=== PATIENT | female | born 1990 | race Caucasian/White ===

== ENCOUNTER 2017-12-30 11:21 | Emergency (ER) | payer MEDICAID ==
[~2017-12-30] VITALS: Ht 172.7 cm; Wt 127.0 kg
[~2017-12-30 11:21] MED LIST: BUSP15TA60 PO; IBUP-16 PO; MELA3TAB PO; NITR-65 PO; PHEN-640 PO
[2017-12-30] MEDS ORDERED: GABA-488 (12:03)
--- NOTE | 2017-12-30 12:45 | ED General ---
General Chief Complaint: General Problems/Pain Stated Complaint: BACK PAIN,LOWER SIDE/ABD PAIN Nursing Triage Note: TO ROOM WITH MUTIPLE C/O REPORTS [place] YESTERDAY FELT PAIN IN BACK THAT WRAPPED AROUND THE BACK. WAS SEEN AT [facility] LAST NIGHT WORK UP NEG. REPORTS HAPPENED AGAIN.FROM JUL HAD GABAPENTIN FILLED NOT SURE IF SHE IS TAKING IT Nursing Sepsis Screen: No Definite Risk Source of Information: Patient Exam Limitations: No Limitations History of Present Illness Date Seen by Provider: Dec 30, 2017 Time Seen by Provider: 12:43 Initial Comments To ER with thoracic back pain, bilateral lower back pain that began yesterday while working at the [employer] in [facility]. She states she was twisting and felt a sudden tension about her entire torso. This was in the thoracic back and low back as mentioned and radiated through to the chest. reports intermittent right upper quadrant abdominal pain. She still has her gallbladder. Timing/Duration: 1-2 Days Severity: Moderate Modifying Factors: improves with Medication Allergies and Home Medications Allergies Coded Allergies: oseltamivir (Unverified Allergy, Intermediate, 12/06/15) seizures sertraline (Unverified Allergy, Intermediate, 12/06/15) seizures latex (Unverified Allergy, Unknown, 12/06/15) nickel (Unverified Allergy, Unknown, 12/06/15) red dye (Unverified Allergy, Unknown, 12/06/15) Home Medications Buspirone HCl 15 Mg Tablet, 15 MG PO BID, (Reported) Ciprofloxacin HCl 500 Mg Tablet, 500 MG PO BID Prescribed by: AHSAN YOUSSEF on 12/30/17 142 Hydrocodone/Acetaminophen 1 Each Tablet, 1 EACH PO Q4H PRN for PAIN-MODERATE TO SEVERE Prescribed by: AHSAN YOUSSEF on 12/30/17 142 Metronidazole 500 Mg Tablet, 500 MG PO TID Prescribed by: AHSAN YOUSSEF on 12/30/171421 Patient Home Medication List Home Medication List Reviewed: Yes Review of Systems Constitutional: see HPI EENTM: see HPI Respiratory: no symptoms reported Cardiovascular: no symptoms reported Gastrointestinal: RUQ; No nausea, No vomiting Genitourinary: no symptoms reported Musculoskeletal: see HPI, back pain Skin: no symptoms reported Psychiatric/Neurological: No Symptoms Reported Hematologic/Lymphatic: No Symptoms Reported Past Qrndbxy-Gieewl-Irwoec Hx Patient Social History Alcohol Use: Denies Use Recreational Drug Use: No Smoking Status: Never a Smoker Recent Foreign Travel: No Contact w/Someone Who Travel: No Recent Infectious Disease Expo: No Recent Hopitalizations: No Seasonal Allergies Seasonal Allergies: No Past Medical History Surgeries: Yes (CARDIAC CATH; COLONOSCOPY/ EGD) Adenoidectomy, Tonsillectomy Respiratory: Yes Asthma Cardiac: Yes (SOME HEART PROB) Neurological: Yes Seizure Disorder : No Reproductive Disorders: No Bladder Infection Gastrointestinal: No Musculoskeletal: No Endocrine: Yes Hypothyroidsim Cancer: No Psychosocial: Yes Anxiety, Depression Integumentary: No Blood Disorders: No Adverse Reaction/Blood Tranf: No Physical Exam Vital Signs Vital Signs - First Documented 12/30/17 11:49 Temp 98.9 Pulse 67 Resp 18 B/P (MAP) 114/67 (83) Pulse Ox 98 O2 Delivery Room Air Capillary Refill : Less Than 3 Seconds Height, Weight, BMI Height: 5'8.00" Weight: 280lbs. oz. 127.430048ay; BMI Method:Stated General Appearance: No Apparent Distress, WD/WN, Obese Eyes: Bilateral Eye Normal Inspection, Bilateral Eye PERRL, Bilateral Eye EOMI HEENT: PERRL/EOMI, TMs Normal Neck: Full Range of Motion, Normal Inspection Respiratory: No Accessory Muscle Use, No Respiratory Distress Cardiovascular: Regular Rate, Rhythm, Normal Peripheral Pulses Gastrointestinal: Normal Bowel Sounds, Non Tender, Soft Extremity: Normal Capillary Refill, Normal Inspection Neurologic/Psychiatric: Alert, Oriented x3, No Motor/Sensory Deficits Skin: Normal Color, Warm/Dry Progress/Results/Core Measures Suspected Sepsis Recent Fever Within 48 Hours: No Infection Criteria Present: None New/Unexplained Altered Menta: No Sepsis Screen: No Definite Risk SIRS Temperature:98.9 Pulse: 67 Respiratory Rate: 18 Laboratory Tests 12/30/17 13:12: White Blood Count 6.0 Blood Pressure 114 /67 Mean: 83 Laboratory Tests 12/30/17 13:12: Creatinine 0.69, Platelet Count 251, Total Bilirubin 1.0 Results/Orders Lab Results Laboratory Tests Test 12/30/17 13:12 Range/Units White Blood Count 6.0 4.3-11.0 10^3/uL Red Blood Count 4.30 L 4.35-5.85 10^6/uL Hemoglobin 12.5 11.5-16.0 G/DL Hematocrit 36 35-52 % Mean Corpuscular Volume 85 80-99 FL Mean Corpuscular Hemoglobin 29 25-34 PG Mean Corpuscular Hemoglobin Concent 34 32-36 G/DL Red Cell Distribution Width 13.4 10.0-14.5 % Platelet Count 251 130-400 10^3/uL Mean Platelet Volume 9.7 7.4-10.4 FL Neutrophils (%) (Auto) 60 42-75 % Lymphocytes (%) (Auto) 30 12-44 % Monocytes (%) (Auto) 6 0-12 % Eosinophils (%) (Auto) 3 0-10 % Basophils (%) (Auto) 0 0-10 % Neutrophils # (Auto) 3.6 1.8-7.8 X 10^3 Lymphocytes # (Auto) 1.8 1.0-4.0 X 10^3 Monocytes # (Auto) 0.4 0.0-1.0 X 10^3 Eosinophils # (Auto) 0.2 0.0-0.3 10^3/uL Basophils # (Auto) 0.0 0.0-0.1 10^3/uL Sodium Level 138 135-145 MMOL/L Potassium Level 3.9 3.6-5.0 MMOL/L Chloride Level 108 H 98-107 MMOL/L Carbon Dioxide Level 24 21-32 MMOL/L Anion Gap 6 5-14 MMOL/L Blood Urea Nitrogen 14 7-18 MG/DL Creatinine 0.69 0.60-1.30 MG/DL Estimat Glomerular Filtration Rate > 60 BUN/Creatinine Ratio 20 Glucose Level 93 70-105 MG/DL Calcium Level 9.2 8.5-10.1 MG/DL Corrected Calcium 9.4 8.5-10.1 MG/DL Total Bilirubin 1.0 0.1-1.0 MG/DL Aspartate Amino Transf (AST/SGOT) 325 H 5-34 U/L Alanine Aminotransferase (ALT/SGPT) 215 H 0-55 U/L Alkaline Phosphatase 107 40-136 U/L Total Protein 6.2 L 6.4-8.2 GM/DL Albumin 3.7 3.2-4.5 GM/DL My Orders Orders - AHSAN YOUSSEF APRN Ua Culture If Indicated (12/30/17 12:35) Urine Bedside (12/30/17 12:35) Cbc With Automated Diff (12/30/17 12:35) T-Spine 3v-Ap, Lat, Swimmers (12/30/17 12:39) Us Gallbladder [id number] (12/30/17 12:39) Comprehensive Metabolic Panel (12/30/17 12:39) Vital Signs/I&O 12/30/17 11:49 Temp 98.9 Pulse 67 Resp 18 B/P (MAP) 114/67 (83) Pulse Ox 98 O2 Delivery Room Air Capillary Refill : Less Than 3 Seconds Blood Pressure Mean: 83 Diagnostic Imaging Diagonstic Imaging: Ultrasound Comments NAME: MIRA PRATT [facility] REC#: [id number] PT STATUS: REG ER : 1990 PHYSICIAN: AHSAN YOUSSEF APRN ADMIT DATE: 12/30/17/ER Draft Date of Exam:12/30/17 US GALLBLADDER [id number] PROCEDURE: US Gallbladder. TECHNIQUE: Multiple real-time grayscale images were obtained over the right upper quadrant in various projections. INDICATION: Right upper quadrant abdominal pain. COMPARISON: None. FINDINGS: The size and echogenicity of the liver appears normal. There is no mass or intrahepatic biliary duct dilatation. Common bile duct is nonvisualized due to overlying bowel gas. There is cholelithiasis without cholecystitis. The visualized pancreas, IVC, aorta, and right kidney are normal. There is no ascites. IMPRESSION: Cholelithiasis without cholecystitis. Dictated on workstation # [id number] Dict: 12/30/17 1410 Trans: 12/30/17 1413 [id number] Interpreted by: MARILYN RAMIREZ Electronically signed by: Departure Communication (Admissions) Spoke with Dr. Harris, recommends antibiotics, pain medication he'll see the patient tomorrow afternoon and plan tentatively to remove the gallbladder Sunday afternoon. Impression Primary Impression: Symptomatic cholelithiasis Disposition: 01 HOME, SELF-CARE Condition: Stable Departure-Patient Inst. Decision time for Depature: 14:20 Referrals: MARY CARO DO (PCP) Primary Care Physician ANTHONY ENG APRN (Family) Primary Care Physician BALDO HARRIS DO Patient Instructions: Gallstones Add. Discharge Instructions: 1. Clear liquids only until tomorrow evening. Then a low-fat bland diet. Take the antibiotics as directed and pain medication as needed. Call Dr. Harris's office tomorrow morning at 8 PM and informed him that he wants to see you tomorrow afternoon in the clinic. The tentative plan is for him to remove her gallbladder on Sunday afternoon. However, this is just the tentative plan and his plans may change after he evaluates you. All discharge instructions reviewed with patient and/or family. Voiced understanding. Scripts Metronidazole (Flagyl) 500 Mg Tablet 500 MG PO TID, #21 TAB Prov: AHSAN YOUSSEF APRN 12/30/17 Ciprofloxacin HCl (Cipro) 500 Mg Tablet 500 MG PO BID, #10 TAB Prov: AHSAN YOUSSEF APRN 12/30/17 Hydrocodone/Acetaminophen ([place] 5-325 Tablet) 1 Each Tablet 1 EACH PO Q4H PRN for PAIN-MODERATE TO SEVERE, #20 TAB Prov: AHSAN YOUSSEF APRN 12/30/17 Work/School Note: Work Release Form Date Seen in the Emergency Department: Dec 30, 2017 Return to Work: Jan 02, 2018 Copy Copies To 1: BALDO HARRIS PETER J APRN Dec 30, 2017 12:45
[2017-12-30 13:22] LABS: BASOPHILS % (AUTO) 0 % (0-10); EOSINOPHILS # (AUTO) 0.2 10^3/uL (0.0-0.3); EOSINOPHILS % (AUTO) 3 % (0-10); HEMATOCRIT 36 % (35-52); HEMOGLOBIN 12.5 G/DL (11.5-16.0); LYMPHOCYTES # (AUTO) 1.8 X 10^3 (1.0-4.0); LYMPHOCYTES % (AUTO) 30 % (12-44); MEAN CORPUSCULAR HEMOGLOBIN 29 PG (25-34); MEAN CORPUSCULAR HGB CONC 34 G/DL (32-36); MEAN CORPUSCULAR VOLUME 85 FL (80-99); MEAN PLATELET VOLUME 9.7 FL (7.4-10.4); MONOCYTES # (AUTO) 0.4 X 10^3 (0.0-1.0); MONOCYTES % (AUTO) 6 % (0-12); NEUTROPHILS # (AUTO) 3.6 X 10^3 (1.8-7.8); NEUTROPHILS % (AUTO) 60 % (42-75); PLATELET COUNT 251 10^3/uL (130-400); RED CELL DISTRIBUTION WIDTH 13.4 % (10.0-14.5)
[2017-12-30 13:39] LABS: BUN/CREATININE RATIO 20; CARBON DIOXIDE 24 MMOL/L (21-32); CHLORIDE 108 MMOL/L (98-107); CREATININE SERUM 0.69 MG/DL (0.60-1.30); POTASSIUM 3.9 MMOL/L (3.6-5.0); SODIUM 138 MMOL/L (135-145)
[2017-12-30 13:40] LABS: ALANINE AMINOTRANSFERASE 215 U/L (0-55); ALBUMIN 3.7 GM/DL (3.2-4.5); ALKALINE PHOSPHATASE 107 U/L (40-136); CALCIUM 9.2 MG/DL (8.5-10.1); GFR ESTIMATED > 60; GLUCOSE 93 MG/DL (70-105); TOTAL PROTEIN 6.2 GM/DL (6.4-8.2)
--- NOTE | 2017-12-30 14:13 | Diagnostic Imaging Report ---
PROCEDURE: US Gallbladder. TECHNIQUE: Multiple real-time grayscale images were obtained over the right upper quadrant in various projections. INDICATION: Right upper quadrant abdominal pain. COMPARISON: None. FINDINGS: The size and echogenicity of the liver appears normal. There is no mass or intrahepatic biliary duct dilatation. Common bile duct is nonvisualized due to overlying bowel gas. There is cholelithiasis without cholecystitis. The visualized pancreas, IVC, aorta, and right kidney are normal. There is no ascites. IMPRESSION: Cholelithiasis without cholecystitis. Dictated by: Dictated on workstation # [id number]
[2017-12-30] MEDS ORDERED: HYDR-757 PO (14:22)
[2017-12-30] MEDS ORDERED: CIPR-225 PO (14:22)
[2017-12-30] MEDS ORDERED: METR500T PO (14:22)
--- NOTE | 2017-12-30 14:23 | Diagnostic Imaging Report ---
INDICATION: Back pain COMPARISON: None. FINDINGS: 3 views of the thoracic column demonstrates normal alignment. There is no subluxation or fracture. No degeneration. IMPRESSION: Negative thoracic spine. Dictated by: Dictated on workstation # [id number]
[2017-12-30 14:33] VITALS: BP 114/67
== END 2017-12-30 14:44 | disposition home or self-care (01) ==
LOC: EDUNIT# 11:21 → ER 11:22
DX: K80.80 Other cholelithiasis without obstruction (principal); J45.909 Unspecified asthma, uncomplicated; G40.909 Epilepsy, unspecified, not intractable, without status epilepticus; E03.9 Hypothyroidism, unspecified; F41.9 Anxiety disorder, unspecified; F32.9 Major depressive disorder, single episode, unspecified; Z91.040 Latex allergy status; Z88.8 Allergy status to other drugs, medicaments and biological substances; Z90.89 Acquired absence of other organs
CPT/HCPCS: 36415; 72072; 76705; 80053; 85025; 99281

== ENCOUNTER 2018-01-07 05:41 | Outpatient (CLI) | payer MEDICAID ==
[~2018-01-07] VITALS: Ht 172.7 cm; Wt 127.0 kg
[~2018-01-07 05:41] MED LIST changes: +CIPR-225 PO; +GABA-488; +HYDR-757 PO; +METR500T PO
[2018-01-07] MEDS ORDERED: GABA-488 PO (13:55)
== END 2018-01-07 14:46 | disposition home or self-care (01) ==
LOC: PREOP 05:41
PROVIDERS: ATTEND Surgery
DX: Z01.818 Encounter for other preprocedural examination (principal)

== ENCOUNTER 2018-12-11 15:15 | Emergency (ER) | payer MEDICAID ==
[~2018-12-11] VITALS: Ht 172.7 cm; Wt 126.1 kg
[~2018-12-11 15:15] MED LIST changes: +ACHD5005 PO; +CEPH-507 PO; +DOCU-143 PO; +GABA-488 PO; +HYDR-4226 PO; -HYDR-757 PO
--- OUTSIDE RECORDS SUMMARY | 2018-12-11 15:33 | XMS REPORT | Clinical Summary ---
Author Author [facility] Organization [facility] Address Unknown Phone Unavailable Care Team Providers Care Demand Equipment Repairer Name Role Phone VjKayla hitchcock UYEN PCP Allergies Comments Active Allergy Reactions Severity Noted Date Buspirone Palpitations Medium 05/24/2018 Latex, Natural Rubber Rash Low 05/24/2018 Nickel 05/24/2018 Red Dye Hives Low 05/24/2018 Oseltamivir Seizures 05/24/2018 Sertraline Seizures High 05/24/2018 Medications End Date Status Medication Sig Dispensed Refills Start Date Active gabapentin (NEURONTIN) Take 100 mg 0 100 MG capsule by mouth daily. Active predniSONE (DELTASONE) 20 60mg x 3 days 21 tablet 0 10/28/201 MG tablet 40mg x 4 days 9 20mg x 4 days Active Problems No known active problems Encounters Care Team Description Date Type Specialty Allergic contact dermatitis due to plants, except food (Primary Dx) 10/27/2018 Emergency Emergency Medicine from Last 3 Months Social History Date Tobacco Use Types Packs/Day Years Used Never Smoker Smokeless Tobacco: Never Used Drinks/Week oz/Week Comments Alcohol Use occassionally Yes Sex Assigned at Date Recorded Not on file Industry Job Start Date Occupation Not on file Not on file Not on file Travel End Travel History Travel Start No recent travel history available. Last Filed Vital Signs Reading Time Taken Comments Vital Sign 119/71 10/27/2018 4:16 PM CDT Blood Pressure 80 10/27/2018 4:16 PM CDT Pulse 36.7 C (98 F) 10/27/2018 4:16 PM CDT Temperature 20 10/27/2018 3:54 PM CDT Respiratory Rate 97% 10/27/2018 4:16 PM CDT Oxygen Saturation - - Inhaled Oxygen Concentration 127 kg (280 lb) 08/11/2018 7:34 PM CDT Weight 172.7 cm (5' 8") 08/11/2018 7:34 PM CDT Height 42.57 08/11/2018 7:34 PM CDT Body Mass Index Plan of Treatment Health Maintenance Due Date Last Done Comments Td # 1990 HPV Vaccine (1 - Female 02/02/2007 3-dose series) Cervical Cancer Screening 02/02/2013 via Pap Smear Influenza Vaccine (#1) 2019 02/25/2013, 03/11/2012, 02/25/2011, Additional history exists Pneumococcal Vaccine: Aged Out No longer eligible based Pediatrics (0 to 5 Years) on patient's age to and At-Risk Patients (6 complete this topic to 64 Years) Results Not on filefrom Last 3 Months Insurance Type Payer Benefit Subscriber ID Effective Phone Address Plan / Dates Group MEDICAID MANAGED CARE [employer] xxxxxxxxxxx [id number] ([place] [facility] 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
--- OUTSIDE RECORDS SUMMARY | 2018-12-11 15:34 | XMS REPORT | Encounter Summary ---
Author Author [facility] Organization [facility] Address Unknown Phone Unavailable Care Team Providers Care Employment Appeals Examiner Name Role Phone Vj Kayla UYEN PCP Reason for Visit * Reason Comments Urinary Urgency x 3 days Encounter Details Care Team Description Date Type Department Tristan Robert PA-C [address] [facility] [address] [address] Acute UTI (Primary Dx) 07/05/2018 Emergency [facility] [address] [place] [address] Social History Date Tobacco Use Types Packs/Day Years Used Never Smoker Smokeless Tobacco: Never Used Drinks/Week oz/Week Comments Alcohol Use occassionally Yes Sex Assigned at Date Recorded Not on file Industry Job Start Date Occupation Not on file Not on file Not on file Travel End Travel History Travel Start No recent travel history available. documented as of this encounter Last Filed Vital Signs Reading Time Taken Comments Vital Sign 121/76 07/05/2018 10:19 AM [facility] Blood Pressure 86 07/05/2018 10:19 AM [facility] Pulse 36.6 C (97.9 F) 07/05/2018 10:19 AM [facility] Temperature 16 07/05/2018 10:19 AM [facility] Respiratory Rate 100% 07/05/2018 10:19 AM [facility] Oxygen Saturation - - Inhaled Oxygen Concentration 127 kg (280 lb) 07/05/2018 9:41 AM [facility] Weight 172.7 cm (5' 8") 07/05/2018 9:41 AM [facility] Height 42.57 07/05/2018 9:41 AM [facility] Body Mass Index documented in this encounter Discharge Instructions * Attachments The following attachments cannot be sent through Care Everywhere.* Urinary Tract Infections in Women (Kyrgyz) documented in this encounter Medications at Time of Discharge Start Date End Date Medication Sig Dispensed Refills gabapentin (NEURONTIN) Take 100 mg 0 100 MG capsule by mouth daily. 07/05/2018 07/10/2018 sulfamethoxazole-trimetho Take 1 tablet 10 tablet 0 prim (BACTRIM DS) 800-160 (160 mg of mg per tablet trimethoprim total) by mouth 2 (two) times a day. documented as of this encounter ED Notes * Sophia Alex RN - 07/05/2018 9:42 AM [facility] Pt ambulatory to triage room with chief complaint of pain and burning on urinati on. This has been going on for about 3 days. In addition, pt states that she i s having urinary frequency and urgency. NG CREW * Tristan Robert PA-C - 07/05/2018 9:40 AM [facility] 07/05/2018 [facility] History Chief Complaint Patient presents with Urinary Urgency x 3 days 28 y/o female has had dysuria for the past three days, has mild lower back pain as well but is currently menstruating. Denies fever and N/V. States it feels lik e a UTI which she has had in the past. Past Medical History: Diagnosis Date Anxiety Atrial ectopy Depression Migraines Past Surgical History: Procedure Laterality Date CARPAL TUNNEL RELEASE heart catherization No family history on file. Social History Substance Use Topics Smoking status: Never Smoker Smokeless tobacco: Never Used Alcohol use Yes Comment: occassionally Review of Systems Constitutional: Negative for chills, fatigue and fever. HENT: Negative for congestion and sore throat. Respiratory: Negative for cough and shortness of breath. Cardiovascular: Negative for chest pain and palpitations. Gastrointestinal: Negative for abdominal pain, nausea and vomiting. Genitourinary: Positive for dysuria. Negative for pelvic pain. Musculoskeletal: Positive for back pain. Negative for myalgias. Skin: Negative for color change and rash. Neurological: Negative for dizziness, numbness and headaches. Psychiatric/Behavioral: Negative for confusion. The patient is not nervous/anxio us. Physical Exam BP 121/76 (BP Location: Right arm, Patient Position: Sitting) | Pulse 86 | Tem p 36.6 C (97.9 F) (Oral) | Resp 16 | Ht 1.727 m (5' 8") | Wt 127 kg (280 lb) | LMP 07/05/2018 | SpO2 100% | BMI 42.57 kg/m Weight Method: Stated Physical Exam Constitutional: She is oriented to person, place, and time. She appears well-dev eloped and well-nourished. No distress. Cardiovascular: Normal rate and regular rhythm. Pulmonary/Chest: Effort normal. No respiratory distress. Abdominal: Soft. She exhibits no distension. There is no tenderness. Musculoskeletal: Normal range of motion. She exhibits no edema. Mild bilateral lower back tenderness on palpation Neurological: She is alert and oriented to person, place, and time. No cranial n erve deficit. Skin: Skin is warm and dry. No rash noted. Psychiatric: She has a normal mood and affect. Her behavior is normal. ED Course Procedures MDM Number of Diagnoses or Management Options Acute UTI: Amount and/or Complexity of Data Reviewed Decide to obtain previous medical records or to obtain history from someone othe r than the patient: yes Review and summarize past medical records: yes Results for orders placed or performed during the hospital encounter of 07/05/18 (from the past 24 hour(s)) Urinalysis Reflex Result Value Ref Range Appearance, Urine Brown Glucose Urine Negative Negative mg/dL Bilirubin Urine Negative Negative Ketones Urine Negative Negative mg/dL Specific [place], UA <1.030 1.001 - 1.030 Hemoglobin Urine Large (A) Negative PH Urine 6.0 5.0 - 8.0 Protein Urine Qual >300 (A) Negative mg/dL Urobilinogen Urine Negative Negative EU/dL Nitrite Urine Positive (A) Negative Leukocyte Esterase Negative Negative Urinalysis Microscopic Only Result Value Ref Range Microscopic RBC Urine >40 (A) 0 - 5 /hpf Microscopic WBC Urine 6 - 10 (A) 0 - 5 /hpf Epithelial Cells Small (A) Absent Hyaline Cast Absent Absent Bacteria Small (A) Absent Urine Test Result Value Ref Range UCG Urine Negative Negative No results found. Medications Administered During Visit Medications - No data to display Patient's Medications New Prescriptions SULFAMETHOXAZOLE-TRIMETHOPRIM (BACTRIM DS) 800-160 MG PER TABLET Take 1 tabl et (160 mg of trimethoprim total) by mouth 2 (two) times a day. Previous Medications GABAPENTIN (NEURONTIN) 100 MG CAPSULE Take 100 mg by mouth daily. Modified Medications No medications on file Discontinued Medications No medications on file Filed VS 07/05/18 0936 07/05/18 1019 BP: 128/70 121/76 Pulse: 80 86 Resp: 18 16 Temp: 36.7 C (98 F) 36.6 C (97.9 F) SpO2: 98% 100% Kayla Vj, ADOPTION AGENT [address] [facility] [address] As needed Patient given instructions. ED Clinical Impression 1. Acute UTI Patient ED Dispo ED Disposition Discharge Tristan Robert PA-C 07/05/18 1028 NG CREW * Sophia Alex RN - 07/05/2018 9:22 AM [facility] Pt urinated 200 ml of urine. Sample collected and taken to lab. NG CREW documented in this encounter Plan of Treatment Not on filedocumented as of this encounter Procedures Comments Procedure Name Priority Date/Time Associated Diagnosis URINALYSIS MICROSCOPIC STAT 07/05/2018 ONLY 9:30 AM [facility] URINE TEST STAT 07/05/2018 9:30 AM [facility] URINALYSIS REFLEX STAT 07/05/2018 9:30 AM [facility] CULTURE, URINE STAT 07/05/2018 9:30 AM [facility] documented in this encounter Results * Urine Test (07/05/2018 9:30 AM [facility]) UCG Urine Negative Negative [facility] Specimen Urine Performing Organization Address City/State/Zipcode Phone Number [facility] [address] [address] LAB * Culture, Urine (07/05/2018 9:30 AM [facility]) Pathologist [facility] Culture Result Three or more bacterial [facility] species isolated from urine [facility] indicates colonization or LABORATORIES fecal contamination. Submission of a repeat specimen is suggested. Specimen Clean Voided Urine Performing Organization Address City/State/Zipcode Phone Number [facility] [address] [place] [address] LABORATORIES * Urinalysis Microscopic Only (07/05/2018 9:30 AM [facility]) Microscopic RBC >40 (A) 0 - 5 /hpf [facility] Microscopic WBC 6 - 10 (A) 0 - 5 /hpf [facility] Epithelial Small (A) Absent [facility] Hyaline Cast Absent Absent [facility] Bacteria Small (A) Absent [facility] Specimen Clean Voided Urine Performing Organization Address City/[facility] Phone Number [facility] [address] [place] [address] LAB * Urinalysis Reflex (07/05/2018 9:30 AM [facility]) Appearance, Brown [facility] Glucose Urine Negative Negative mg/dL [facility] Bilirubin Urine Negative Negative [facility] Ketones Urine Negative Negative mg/dL [facility] Specific <1.030 1.001 - 1.030 [facility] [place], [facility] Hemoglobin Large (A) Negative [facility] PH Urine 6.0 5.0 - 8.0 [facility] Protein Urine >300 (A) Negative mg/dL [facility] Urobilinogen Negative Negative EU/dL [facility] Nitrite Urine Positive (A)Comment: Culture Negative [facility] Leukocyte Negative Negative [facility] LAB Specimen Clean Voided Urine Performing Organization Address City/[facility] Phone Number [facility] [address] [phone] LAB documented in this encounter Visit Diagnoses Diagnosis Acute UTI - Primary Urinary tract infection, site not specified documented in this encounter
--- OUTSIDE RECORDS SUMMARY | 2018-12-11 15:34 | XMS REPORT | Encounter Summary ---
Author Author [facility] Organization [facility] Address Unknown Phone Unavailable Care Team Providers Care Cone Cleaner Name Role Phone VjKayla hitchcock UYEN PCP Reason for Visit * Reason Comments Cough Encounter Details Care Team Description Date Type Department Silverio Leong DO [address] [place], [place] [id number] Upper respiratory tract infection, unspecified type (Primary Dx) 07/31/2018 Emergency [facility] [address] [place] [address] Social History Date Tobacco Use Types Packs/Day [...] Signs Reading Time Taken Comments Vital Sign 128/88 07/31/2018 10:49 PM CDT Blood Pressure 90 07/31/2018 10:49 PM CDT Pulse 37.1 C (98.7 F) 07/31/2018 10:49 PM CDT Temperature 16 07/31/2018 10:49 PM CDT Respiratory Rate 99% 07/31/2018 10:49 PM CDT Oxygen Saturation - - Inhaled Oxygen Concentration 122.5 kg (270 lb) 07/31/2018 10:13 PM CDT Weight 172.7 cm (5' 8") 07/31/2018 10:13 PM CDT Height 41.05 07/31/2018 10:13 PM CDT Body Mass Index documented in this encounter Discharge Instructions * Attachments The following attachments cannot be sent through Care Everywhere.* Respiratory Infections, Preventing Common (Bahamian) documented in this encounter Medications at Time of Discharge Start Date End Date Medication Sig Dispensed Refills gabapentin (NEURONTIN) Take 100 mg 0 100 MG capsule by mouth daily. 07/31/2018 08/11/2018 azithromycin (ZITHROMAX) Take 500mg 6 tablet 0 250 MG tabletIndications: today and COPD 250mg daily for 4days 07/31/2018 08/11/2018 predniSONE (DELTASONE) 10 Take 40mg 30 tablet 0 MG tablet x4d, 30mg x3d, 20mg x2d, 10mg x1d documented as of this encounter ED Notes * Kristen Monge RN - 07/31/2018 10:50 PM CDT Discharge instructions discussed with patient. Verbalized understanding. Denies needs, concerns and issues at this time. * Silverio Leong DO - 07/31/2018 10:43 PM CDT 07/31/2018 [facility] History Chief Complaint Patient presents with Cough HPI This 28year old white female presents with complaints of cough for the last 2 da ys. Past Medical History: Diagnosis Date Anxiety Atrial ectopy Depression Migraines Past Surgical History: Procedure Laterality Date CARPAL TUNNEL RELEASE CHOLECYSTECTOMY heart catherization TONSILLECTOMY No family history on file. Social History Substance Use Topics Smoking status: Never Smoker Smokeless tobacco: Never Used Alcohol use Yes Comment: occassionally Review of Systems Constitutional: Negative for activity change. HENT: Negative for congestion, ear pain, postnasal drip, rhinorrhea, sinus press ure and sore throat. Respiratory: Positive for cough. Negative for shortness of breath and wheezing. Cardiovascular: Negative for chest pain, palpitations and leg swelling. Gastrointestinal: Negative for abdominal pain, constipation, diarrhea, nausea an d vomiting. Genitourinary: Negative for dysuria. Musculoskeletal: Negative for arthralgias, back pain and myalgias. Skin: Negative for rash. Neurological: Negative for dizziness and headaches. Psychiatric/Behavioral: Negative for agitation and behavioral problems. Physical Exam BP 138/80 | Pulse 93 | Temp 37.1 C (98.7 F) (Oral) | Resp 16 | Ht 1.727 m (5' 8") | Wt 122.5 kg (270 lb) | LMP 07/26/2018 (Approximate) | SpO2 100% | BMI 41.05 kg/m Weight Method: Stated Physical Exam Constitutional: She is oriented to person, place, and time. She appears well-dev eloped. No distress. Cardiovascular: Normal rate and regular rhythm. No murmur heard. Pulmonary/Chest: Effort normal and breath sounds normal. Abdominal: Soft. Bowel sounds are normal. Musculoskeletal: She exhibits no edema. Neurological: She is alert and oriented to person, place, and time. Skin: Skin is warm. Psychiatric: She has a normal mood and affect. Nursing note and vitals reviewed. ED Course Procedures MDM No results found for this or any previous visit (from the past 24 hour(s)). No results found. Medications Administered During Visit Medications azithromycin (ZITHROMAX) tablet 250 mg (not administered) Patient's Medications New Prescriptions AZITHROMYCIN (ZITHROMAX) 250 MG TABLET Take 500mg today and 250mg daily for 4days PREDNISONE (DELTASONE) 10 MG TABLET Take 40mg x4d, 30mg x3d, 20mg x2d, 10mg x1d Previous Medications GABAPENTIN (NEURONTIN) 100 MG CAPSULE Take 100 mg by mouth daily. Modified Medications No medications on file Discontinued Medications No medications on file Filed VS 07/31/18221407/31/182229 BP: (!) 140/62 138/80 Pulse: Resp: Temp: SpO2: 100% 100% Kayla Zabala, RESERVATION CLERK [address] [facility] [address] In 1 week Patient given instructions. ED Clinical Impression 1. Upper respiratory tract infection, unspecified type Patient ED Dispo None Silverio Leong DO 07/31/186 * Kristen Monge RN - 07/31/2018 10:17 PM CDT Pt states she's had a cough x2 days, feels like it is getting worse, "moving int o my chest, hurts to take deep breaths." She has tried OTC cough medicine and Ty lenol without relief. documented in this encounter Plan of Treatment Not on filedocumented as of this encounter Visit Diagnoses Diagnosis Upper respiratory tract infection, unspecified type - Primary documented in this encounter Administered Medications Action Date Dose Rate Site Medication Order MAR Action 07/31/2018 10:54 PM CDT 500 mg azithromycin (ZITHROMAX) tablet 500 mg Given 500 mg, Oral, Once, Indications: BRONCHITIS, 07/31/18 at 2315, For 1 dose documented in this encounter
--- OUTSIDE RECORDS SUMMARY | 2018-12-11 15:34 | XMS REPORT | Encounter Summary ---
Author Author [facility] Organization [facility] Address Unknown Phone Unavailable Care Team Providers Care Campus Security Director Name Role Phone Jsesa Zabalazabeth UYEN PCP Reason for Visit * Reason Comments Abdominal Pain Encounter Details Care Team Description Date Type Department Lower abdominal pain (Primary Dx) 08/11/2018 Emergency [facility] [address] [place] [address] Social History Date Tobacco Use Types Packs/Day [...] Signs Reading Time Taken Comments Vital Sign 123/66 08/11/2018 9:26 PM CDT Blood Pressure 84 08/11/2018 9:26 PM CDT Pulse 37 C (98.6 F) 08/11/2018 9:26 PM CDT Temperature 18 08/11/2018 9:26 PM CDT Respiratory Rate 100% 08/11/2018 9:26 PM CDT Oxygen Saturation - - Inhaled Oxygen Concentration 127 kg (280 lb) 08/11/2018 7:34 PM CDT Weight 172.7 cm (5' 8") 08/11/2018 7:34 PM CDT Height 42.57 08/11/2018 7:34 PM CDT Body Mass Index documented in this encounter Discharge Instructions * Instructions* Peter Smith PA-C - 08/11/2018 Start Bentyl and Pepcid today as directed Call your health care provider right away if any of these occur: Pain gets worse or moves to the right lower abdomen New or worsening vomiting or diarrhea Swelling of the abdomen Unable to pass stool for more than three days Fever of 100.4F (38C) or higher, or as directed by your healthcare provider. Blood in vomit or bowel movements (dark red or black color) Jaundice (yellow color of eyes and skin) Weakness, dizziness Chest, arm, back, neck or jaw pain Unexpected vaginal bleeding or missed period * Attachments The following attachments cannot be sent through Care Everywhere.* ABDOMINAL PAIN, UNKNOWN CAUSE, (FEMALE) (MALAY) documented in this encounter Medications at Time of Discharge Start Date End Date Medication Sig Dispensed Refills gabapentin (NEURONTIN) Take 100 mg 0 100 MG capsule by mouth daily. 08/11/2018 10/27/2018 dicyclomine (BENTYL) 20 Take 1 tablet 30 tablet 0 mg tablet (20 mg total) by mouth every 6 (six) hours. 08/11/2018 10/27/2018 famotidine (PEPCID) 20 MG Take 1 tablet 56 tablet 0 tablet (20 mg total) by mouth 2 (two) times a day. documented as of this encounter ED Notes * Kristen Monge RN - 08/11/2018 9:27 PM CDT Discharge instructions discussed with patient. Verbalized understanding. Denies needs, concerns and issues at this time. * Peter Smith PA-C - 08/11/2018 8:05 PM CDT 08/11/2018 [facility] History Chief Complaint Patient presents with Abdominal Pain Chief complaint: Lower abdominal pain History of present illness: 28-year-old female presents to the ER per private ve hicle with history of lower abdominal pain times 5 days. Patient states she ramonita t to the walk-in clinic at [facility] with similar complaints today aroun d 1600. Patient was evaluated and labs taken. Patient was advised she was not and no urgent condition was found. Patient states she has a Mirena int rauterine device placed for approximately the last 18 months. Abdominal pain is more lower, cramping mild to moderate in severity. Patient has had a previous cholecystectomy last fall. No reports of any fever, chills, vomiting or diarrhe a. Last bowel movement was today without any complications, denies any melanoti c stools or hematochezia. Denies any active vaginal discharge, dyspareunia. Past Medical History: Diagnosis Date Anxiety Atrial ectopy Depression Migraines Past Surgical History: Procedure Laterality Date CARPAL TUNNEL RELEASE CHOLECYSTECTOMY heart catherization TONSILLECTOMY No family history on file. Social History Substance Use Topics Smoking status: Never Smoker Smokeless tobacco: Never Used Alcohol use Yes Comment: occassionally Review of Systems Constitutional: Negative. HENT: Negative. Eyes: Negative. Respiratory: Negative. Cardiovascular: Negative. Gastrointestinal: Positive for abdominal pain. Endocrine: Negative. Genitourinary: Mirena IUD Musculoskeletal: Negative. Skin: Negative. Neurological: Negative. Hematological: Negative. Physical Exam BP 129/63 | Pulse 84 | Temp 36.7 C (98 F) (Oral) | Resp 16 | Ht 1.727 m (5' 8") | Wt 127 kg (280 lb) | LMP 06/01/2018 (Approximate) Comment: been spot ting, on Mirana | SpO2 100% | BMI 42.57 kg/m Weight Method: Stated Physical Exam Constitutional: She is oriented to person, place, and time. She appears well-dev eloped and well-nourished. HENT: Head: Normocephalic and atraumatic. Right Ear: External ear normal. Left Ear: External ear normal. Nose: Nose normal. Mouth/Throat: Oropharynx is clear and moist. Eyes: Pupils are equal, round, and reactive to light. Conjunctivae and EOM are n ormal. Neck: Normal range of motion. Neck supple. Cardiovascular: Normal rate, regular rhythm, normal heart sounds and intact dist al pulses. Pulmonary/Chest: Effort normal and breath sounds normal. Abdominal: Soft. There is tenderness. There is no rebound and no guarding. Musculoskeletal: Normal range of motion. Neurological: She is alert and oriented to person, place, and time. Skin: Skin is warm and dry. Capillary refill takes less than 2 seconds. ED Course Procedures MDM Results for orders placed or performed during the hospital encounter of 08/11/18 (from the past 24 hour(s)) Complete Blood Count and Differential (manual count if needed) Result Value Ref Range WBC 8.65 4.00 - 11.00 TH/uL RBC 4.72 4.00 - 5.00 MIL/uL Hemoglobin 14.1 12.0 - 15.0 g/dL Hematocrit 41 36 - 45 % MCV 88 80 - 99 fL MCH 30 27 - 34 pg MCHC 34 32 - 36 % RDW 13.3 9.0 - 14.5 % Platelet Count 282 140 - 400 TH/uL MPV 9.0 (L) 9.4 - 12.3 fL % Neutrophils 51 45 - 78 % %Lymphocytes 39 15 - 47 % %Monocytes 5 0 - 12 % %Eosinophils 4 0 - 7 % %Basophils 0 0 - 2 % # Granulocytes 4.44 1.70 - 6.80 TH/uL # Lymphocytes 3.36 (H) 1.00 - 3.30 TH/uL # Monocytes 0.47 0.20 - 0.90 TH/uL # Eosinophils 0.36 0.00 - 0.40 TH/uL # Basophils 0.02 0.00 - 0.10 TH/uL Urinalysis Reflex Result Value Ref Range Appearance, Urine Yellow Glucose Urine Negative Negative mg/dL Bilirubin Urine Negative Negative Ketones Urine Negative Negative mg/dL Specific [place], UA >1.030 (H) 1.001 - 1.030 Hemoglobin Urine Negative Negative PH Urine 6.0 5.0 - 8.0 Protein Urine Qual Negative Negative mg/dL Urobilinogen Urine Negative Negative EU/dL Nitrite Urine Negative Negative Leukocyte Esterase Negative Negative Comprehensive Metabolic Panel Result Value Ref Range Sodium 138 133 - 147 MEQ/L Potassium 4.4 3.5 - 5.3 MEQ/L Chloride 100 96 - 112 MEQ/L Carbon Dioxide 30 20 - 32 MEQ/L Anion Gap 7 5 - 17 Calcium 9.6 8.4 - 10.5 mg/dL Glucose 91 70 - 100 mg/dL Protein Total Serum 7.3 6.0 - 8.2 g/dL Albumin 4.2 3.5 - 5.0 g/dL Alkaline Phosphatase 76 42 - 140 IU/L Alanine Aminotransferase 18 0 - 34 IU/L Aspartate Aminotransferase 22 15 - 46 IU/L Bilirubin Total 0.4 0.2 - 1.3 mg/dL Blood Urea Nitrogen 14 7 - 26 mg/dL Creatinine 0.8 0.4 - 1.1 mg/dL eGFR Female AA 104 60 - 200 mL/min/1.73sq m eGFR Female Non-AA 87 60 - 200 mL/min/1.73sq m HCG Quantitative Result Value Ref Range HCG Serum QT <2 mIU/mL Xr Abdomen Min 2 Views Result Date: 08/11/2018 Patient: SWEAT, SHARAA L Sex#: Jl # [id number] Lorrie#: [id number] Location: [facility] ED AED-01 Procedure Requested: [id number] XR ABDOMEN MIN 2 VIEWS Reason for Exam: abd pain Exam Ordered: 08/11/20182048 Exam D ate/Time: 08/11/20182106 Begin exam date/time: 08/11/20182051 PROCEDUR E: Abdominal series 3 views INDICATIONS: Abdominal pain COMPARISON: No priors FINDINGS: Lung bases are clear. No free air is noted. Gallbladder surgically a bsent. IUD seen in the pelvis. Nonspecific bowel gas pattern seen without obstru ction or ileus. No acute changes are seen Medications Administered During Visit Medications dicyclomine (BENTYL) capsule 20 mg (not administered) famotidine (PEPCID) tablet 20 mg (not administered) Patient's Medications New Prescriptions DICYCLOMINE (BENTYL) 20 MG TABLET Take 1 tablet (20 mg total) by mouth every 6 (six) hours. FAMOTIDINE (PEPCID) 20 MG TABLET Take 1 tablet (20 mg total) by mouth 2 (two ) times a day. Previous Medications GABAPENTIN (NEURONTIN) 100 MG CAPSULE Take 100 mg by mouth daily. Modified Medications No medications on file Discontinued Medications AZITHROMYCIN (ZITHROMAX) 250 MG TABLET Take 500mg today and 250mg daily for 4days PREDNISONE (DELTASONE) 10 MG TABLET Take 40mg x4d, 30mg x3d, 20mg x2d, 10mg x1d Filed VS 08/11/18 2100 08/11/18 2115 BP: 129/63 Pulse: Resp: Temp: SpO2: 98% 100% Kayla Zabala, ELECTRIC WELDER [address] [facility] [address] In 3 days As needed Patient given instructions. ED Clinical Impression 1. Lower abdominal pain Call your health care provider right away if any of these occur: Pain gets worse or moves to the right lower abdomen New or worsening vomiting or diarrhea Swelling of the abdomen Unable to pass stool for more than three days Fever of 100.4F (38C) or higher, or as directed by your healthcare provid er. Blood in vomit or bowel movements (dark red or black color) Jaundice (yellow color of eyes and skin) Weakness, dizziness Chest, arm, back, neck or jaw pain Unexpected vaginal bleeding or missed period Patient ED Dispo ED Disposition Discharge Peter Smith PA-C 08/11/182122 * Kristen Monge, RN - 08/11/2018 7:52 PM CDT Lab at bedside for obtain samples. * Kristen Monge, AKIRA - 08/11/2018 7:38 PM CDT Pt states she took a test at home last and it was positive. P t went to the clinic in [place] today and they had a negative result. They to ld her she "was but now she is not." Pt is having pressure in her hips, cramping in lower abdomen, feeling very fatigued, hx of passing out on Sunday, lower back pain, states last known period was in May and has been spotting this month. She states she will hurt "really bad" and then goes to the bathroom and has a "lot of bloody mucus." Pt states she has also had a FLOYD x4 days. documented in this encounter Plan of Treatment Not on filedocumented as of this encounter Procedures Comments Procedure Name Priority Date/Time Associated Diagnosis XR ABDOMEN MIN 2 VIEWS STAT 08/11/2018 9:07 PM CDT HCG QUANTITATIVE STAT 08/11/2018 7:59 PM CDT COMPREHENSIVE METABOLIC STAT 08/11/2018 PANEL 7:59 PM CDT URINALYSIS REFLEX STAT 08/11/2018 7:45 PM CDT CBC AND DIFF (MANUAL DIFF STAT 08/11/2018 IF NECESSARY) 7:45 PM CDT documented in this encounter Results * XR Abdomen min 2 views (08/11/2018 9:07 PM CDT) Specimen Impressions Performed At No acute changes are seen [facility] Narrative Performed At Patient: VINICIUS DACOSTA [facility] Sex#:F # [id number] Lorrie#:[id number] Location:[facility] ED AED-01Accession#: [id number] Procedure Requested:[id number] XR ABDOMEN MIN 2 VIEWS Reason for Exam:abd pain Exam Ordered: Exam Date/Time: Begin exam date/time: PROCEDURE:Abdominal series 3 views INDICATIONS:Abdominal pain COMPARISON:No priors FINDINGS:Lung bases are clear. No free air is noted. Gallbladder surgically absent. IUD seen in the pelvis. Nonspecific bowel gas pattern seen without obstruction or ileus. Procedure Note Interface, Rad Results In - 08/11/2018 9:16 PM CDT Patient: ANURADHA DACOSTA Sex#: F # 1990 Lorrie#: [id number] Location: [facility] ED AED-01 Procedure Requested: [id number] XR ABDOMEN MIN 2 VIEWS Reason for Exam: abd pain Exam Ordered: 08/11/20182048 Exam Date/Time: 08/11/20182106 Begin exam date/time: 08/11/20182051 PROCEDURE: Abdominal series 3 views INDICATIONS: Abdominal pain COMPARISON: No priors FINDINGS: Lung bases are clear. No free air is noted. Gallbladder surgically absent. IUD seen in the pelvis. Nonspecific bowel gas pattern seen without obstruction or ileus. IMPRESSION No acute changes are seen Performing Organization Address City/State/Zipcode Phone Number [facility] * HCG Quantitative (08/11/2018 7:59 PM CDT) HCG Serum QT <2 mIU/mL [facility] Comment: HOSPITAL LAB HCG Serum QT: Female Reference Range: Premenopausal0 - 4mIU/mL Postmenopausal 0 - 6mIU/mL >24mIU/mL Indeterminate5 - 24 mIU/mL (Consider retesting 48 hours later) Specimen Blood Performing Organization Address City/[facility]/Zipcode Phone Number [facility] [address] [address] LAB * Comprehensive Metabolic Panel (08/11/2018 7:59 PM CDT) Sodium 138 133 - 147 MEQ/L [facility] LAB Potassium 4.4 3.5 - 5.3 MEQ/L [facility] LAB Chloride 100 96 - 112 MEQ/L [facility] Carbon Dioxide 30 20 - 32 MEQ/L [facility] LAB Anion Gap 7 5 - 17 [facility] LAB Calcium 9.6 8.4 - 10.5 mg/dL [facility] LAB Glucose 91 70 - 100 mg/dL [facility] Protein Total 7.3 6.0 - 8.2 g/dL [facility] Serum [facility] LAB Albumin 4.2 3.5 - 5.0 g/dL [facility] LAB Alkaline 76 42 - 140 IU/L [facility] Phosphatase [facility] LAB Alanine 18 0 - 34 IU/L [facility] e Aspartate 22 15 - 46 IU/L [facility] LAB e Bilirubin Total 0.4 0.2 - 1.3 mg/dL [facility] LAB Blood Urea 14 7 - 26 mg/dL [facility] LAB Creatinine 0.8 0.4 - 1.1 mg/dL [facility] LAB eGFR Female AA 104 60 - 200 [facility] mL/min/1.73sq [facility] LAB eGFR Female 87 60 - 200 [facility] Non-AA mL/min/1.73sq [facility] LAB Specimen Blood Performing Organization Address City/[facility] Phone Number [address] [address] LAB * Urinalysis Reflex (08/11/2018 7:45 PM CDT) Pathologist [facility] Appearance, Yellow [facility] Urine [facility] LAB Glucose Urine Negative Negative mg/dL [facility] LAB Bilirubin Urine Negative Negative [facility] Ketones Urine Negative Negative mg/dL [facility] LAB Specific >1.030 (H) 1.001 - 1.030 [facility] LAB Hemoglobin Negative Negative [facility] LAB PH Urine 6.0 5.0 - 8.0 [facility] LAB Protein Urine Negative Negative mg/dL [facility] LAB Urobilinogen Negative Negative EU/dL [facility] LAB Nitrite Urine Negative Negative [facility] Leukocyte Negative Negative [facility] LAB Specimen Clean Voided Urine Performing Organization Address City/[facility] Phone Number [address] [place] [address] LAB * Complete Blood Count and Differential (manual count if needed) (08/11/2018 7:45 PM CDT) [facility] WBC 8.65 4.00 - 11.00 TH/uL [facility] LAB RBC 4.72 4.00 - 5.00 MIL/uL [facility] LAB Hemoglobin 14.1 12.0 - 15.0 g/dL [facility] LAB Hematocrit 41 36 - 45 % [facility] MCV 88 80 - 99 [facility] LAB MCH 30 27 - 34 pg [facility] MCHC 34 32 - 36 % [facility] LAB RDW 13.3 9.0 - 14.5 % [facility] LAB Platelet Count 282 140 - 400 TH/uL [facility] LAB MPV 9.0 (L) 9.4 - 12.3 [facility] LAB % Neutrophils 51 45 - 78 % [facility] LAB %Lymphocytes 39 15 - 47 % [facility] LAB %Monocytes 5 0 - 12 % [facility] LAB %Eosinophils 4 0 - 7 % [facility] LAB %Basophils 0 0 - 2 % [facility] LAB # Granulocytes 4.44 1.70 - 6.80 TH/uL [facility] LAB # Lymphocytes 3.36 (H) 1.00 - 3.30 TH/uL [facility] LAB # Monocytes 0.47 0.20 - 0.90 TH/uL [facility] LAB # Eosinophils 0.36 0.00 - 0.40 TH/uL [facility] LAB # Basophils 0.02 0.00 - 0.10 TH/uL [facility] LAB Specimen Blood Performing Organization Address City/State/Zipcode Phone Number [facility] [address] [place] [address] LAB documented in this encounter Visit Diagnoses Diagnosis Lower abdominal pain - Primary Abdominal pain, other specified site documented in this encounter Administered Medications Action Date Dose Rate Site Medication Order MAR Action 08/11/2018 9:25 PM CDT 20 mg dicyclomine (BENTYL) capsule 20 mg Given 20 mg, Oral, Once, 08/11/18 at 2145, For 1 dose 08/11/2018 9:25 PM CDT 20 mg famotidine (PEPCID) tablet 20 mg Given 20 mg, Oral, Once, 08/11/18 at 2145, For 1 dose documented in this encounter
--- OUTSIDE RECORDS SUMMARY | 2018-12-11 15:34 | XMS REPORT | Encounter Summary ---
Author Author [facility] Organization [facility] Address Unknown Phone Unavailable Care Team Providers Care Floor Trader Name Role Phone Vj Kayla UYEN PCP Reason for Visit * Reason Comments Allergic Reaction Encounter Details Care Team Description Date Type Department Allergic contact dermatitis due to plants, except food (Primary Dx) 10/27/2018 [facility] [address] [place] [address] Social History Date Tobacco Use Types Packs/Day [...] Oxygen Saturation - - Inhaled Oxygen Concentration - - Weight - - Height - - Body Mass Index documented in this encounter Discharge Instructions * Attachments The following attachments cannot be sent through Care Everywhere.* POISON SADIQ DERMATITIS (AUSTR[place]IAN) documented in this encounter Medications at Time of Discharge Start Date End Date Medication Sig Dispensed Refills gabapentin (NEURONTIN) Take 100 mg 0 100 MG capsule by mouth daily. 10/28/2018 predniSONE (DELTASONE) 20 60mg x 3 days 21 tablet 0 MG tablet 40mg x 4 days 20mg x 4 days documented as of this encounter ED Notes * Tristan Robert PA-C - 10/27/2018 4:07 PM CDT 10/27/2018 [facility] History Chief Complaint Patient presents with Allergic Reaction 28 y/o female presents to ER with rash which began yesterday, started on her low er legs after she was outside cutting down tall weeds and grass. The rash has no w spread to her arms, lower abdomen at beltline, upper chest, neck and face. It is itchy with some blistering. She denies any throat or mouth involvement, no tr ouble breathing or swallowing. She has had similar reaction to poison sadiq in the past. Has not tried any OTC meds. Past Medical History: Diagnosis Date Anxiety Atrial ectopy Depression Migraines Past Surgical History: Procedure Laterality Date CARPAL TUNNEL RELEASE CHOLECYSTECTOMY heart catherization TONSILLECTOMY No family history on file. Social History Substance Use Topics Smoking status: Never Smoker Smokeless tobacco: Never Used Alcohol use Yes Comment: occassionally Review of Systems Constitutional: Negative for chills and fatigue. HENT: Negative for congestion and sore throat. Respiratory: Negative for cough and shortness of breath. Cardiovascular: Negative for chest pain and palpitations. Gastrointestinal: Negative for abdominal pain, nausea and vomiting. Genitourinary: Negative for dysuria and pelvic pain. Musculoskeletal: Negative for back pain and myalgias. Skin: Positive for rash. Negative for color change. Neurological: Negative for dizziness, numbness and headaches. Psychiatric/Behavioral: Negative for confusion. The patient is not nervous/anxio us. Physical Exam Pulse 84 | Temp 36.7 C (98.1 F) | Resp 20 Physical Exam Constitutional: She is oriented to person, place, and time. She appears well-dev eloped. No distress. HENT: Head: Normocephalic. Mouth/Throat: Oropharynx is clear and moist. Eyes: Pupils are equal, round, and reactive to light. EOM are normal. Neck: Normal range of motion. Cardiovascular: Normal rate and regular rhythm. Pulmonary/Chest: Effort normal. No respiratory distress. Abdominal: Soft. She exhibits no distension. Musculoskeletal: Normal range of motion. She exhibits no edema. Neurological: She is alert and oriented to person, place, and time. No cranial n erve deficit. Skin: Skin is warm and dry. Scattered papular and vesicular erythematous lesions to lower legs, beltline, up per chest and arms, neck and face. No oral involvement, no drainage. Psychiatric: She has a normal mood and affect. Her behavior is normal. ED Course Procedures MDM Number of Diagnoses or Management Options Allergic contact dermatitis due to plants, except food: Amount and/or Complexity of Data Reviewed Obtain history from someone other than the patient: yes Review and summarize past medical records: yes No results found for this or any previous visit (from the past 24 hour(s)). No results found. Medications Administered During Visit Medications predniSONE (DELTASONE) tablet 60 mg (not administered) Patient's Medications New Prescriptions PREDNISONE (DELTASONE) 20 MG TABLET 60mg x 3 days 40mg x 4 days 20mg x 4 days Previous Medications GABAPENTIN (NEURONTIN) 100 MG CAPSULE Take 100 mg by mouth daily. Modified Medications No medications on file Discontinued Medications DICYCLOMINE (BENTYL) 20 MG TABLET Take 1 tablet (20 mg total) by mouth every 6 (six) hours. FAMOTIDINE (PEPCID) 20 MG TABLET Take 1 tablet (20 mg total) by mouth 2 (two ) times a day. Filed VS 10/27/18 1554 Pulse: 84 Resp: 20 Temp: 36.7 C (98.1 F) Kayla Zabala, SHINGLER [address] [facility] [address] In 1 week Patient given instructions. Likely poison sadiq reaction, will do steroid taper, recommended benadryl and hydr ocortisone for itching. Discussed indications for return to ER, pt and v erbalized understanding and agreement with the plan. ED Clinical Impression 1. Allergic contact dermatitis due to plants, except food Patient ED Dispo ED Disposition Discharge Tristan Robert PA-C 10/27/18 1612 * Julisa Wilson RN - 10/27/2018 3:58 PM CDT Pt presents with rashy red spots on skin. Reports it is itching. documented in this encounter Plan of Treatment Not on filedocumented as of this encounter Visit Diagnoses Diagnosis Allergic contact dermatitis due to plants, except food - Primary Contact dermatitis and other eczema due to plants (except food) documented in this encounter Administered Medications Action Date Dose Rate Site Medication Order MAR Action 10/27/2018 4:24 PM CDT 60 mg predniSONE (DELTASONE) tablet 60 mg Given 60 mg, Oral, Once, 10/27/18 at 1630, For 1 dose, Give with food to reduce GI upset, documented in this encounter"
--- OUTSIDE RECORDS SUMMARY | 2018-12-11 15:34 | XMS REPORT | Encounter Summary ---
Author Author [facility] Organization [facility] Address Unknown Phone Unavailable Care Team Providers Care Network Technology Instructor Name Role Phone VjKayla hitchcock UYEN PCP Reason for Visit * Reason Comments Fever Chills Encounter Details Care Team Description Date Type Department Upper respiratory tract infection, unspecified type (Primary Dx) 05/24/2018 [facility] [address] [place] [address] Social History Date Tobacco Use Types Packs/Day Years Used Never Assessed Sex Assigned at Date Recorded Not on file Industry Job Start Date Occupation Not on file Not on file Not on file Travel End Travel History Travel Start No recent travel history available. documented as of this encounter Last Filed Vital Signs Reading Time Taken Comments Vital Sign 116/62 05/24/2018 1:15 PM [employer] Blood Pressure 88 05/24/2018 1:15 PM [employer] Pulse 36.7 C (98.1 F) 05/24/2018 1:15 PM [employer] Temperature 18 05/24/2018 1:15 PM [employer] Respiratory Rate - - Oxygen Saturation - - Inhaled Oxygen Concentration 122.5 kg (270 lb) 05/24/2018 1:15 PM [employer] Weight 172.7 cm (5' 8") 05/24/2018 1:15 PM [employer] Height 41.05 05/24/2018 1:15 PM [employer] Body Mass Index documented in this encounter Discharge Instructions * Attachments The following attachments cannot be sent through Care Everywhere.* URI, VIRAL, NO ABX (ADULT) (MALTESE) documented in this encounter Medications at Time of Discharge Start Date End Date Medication Sig Dispensed Refills gabapentin (NEURONTIN) Take 100 mg 0 100 MG capsule by mouth daily. documented as of this encounter ED Notes * Tristan Robert PA-C - 05/24/2018 2:16 PM [employer] 05/24/2018 [facility] History Chief Complaint Patient presents with Fever Chills 28-year-old female presents with fever and chills over the past 2 days. States she had nausea/vomiting/diarrhea about a week ago, was seen at [facility] and diagnosed with a virus and symptoms have since subsided. She denies any cough, congestion, sore throat, shortness of breath, or wheezing. States she just fee ls fatigued. Unsure what her temperature has been at home. Not taking OTC meds. Afebrile on initial exam. Requests a work note. Past Medical History: Diagnosis Date Anxiety Atrial ectopy Depression Migraines No past surgical history on file. No family history on file. Social History Substance Use Topics Smoking status: Not on file Smokeless tobacco: Not on file Alcohol use Not on file Review of Systems Constitutional: Positive for chills, fatigue and fever. Negative for activity ch jing and appetite change. HENT: Negative for congestion, ear pain, rhinorrhea, sinus pain, sinus pressure and sore throat. Eyes: Negative for pain and redness. Respiratory: Negative for cough and shortness of breath. Cardiovascular: Negative for chest pain and palpitations. Gastrointestinal: Negative for abdominal pain, nausea and vomiting. Genitourinary: Negative for dysuria and pelvic pain. Musculoskeletal: Negative for back pain and myalgias. Skin: Negative for color change and rash. Neurological: Negative for dizziness, numbness and headaches. Psychiatric/Behavioral: Negative for confusion. The patient is not nervous/anxio us. Physical Exam BP 116/62 (BP Location: Right arm) | Pulse 88 | Temp 36.7 C (98.1 F) | Re sp 18 | Ht 1.727 m (5' 8") | Wt 122.5 kg (270 lb) | LMP 03/06/2018 (Exact Howie e) | BMI 41.05 kg/m Weight Method: Stated Physical Exam Constitutional: She is oriented to person, place, and time. She appears well-dev eloped and well-nourished. No distress. HENT: Head: Normocephalic. Right Ear: Tympanic membrane and ear canal normal. Left Ear: Tympanic membrane and ear canal normal. Eyes: Pupils are equal, round, and reactive to light. Conjunctivae and EOM are n ormal. Neck: Normal range of motion. Cardiovascular: Normal rate, regular rhythm and normal heart sounds. Pulmonary/Chest: Effort normal and breath sounds normal. No respiratory distress . She has no wheezes. She exhibits no tenderness. Abdominal: Soft. Bowel sounds are normal. She exhibits no distension. There is n o tenderness. There is no guarding. Musculoskeletal: Normal range of motion. She exhibits no edema. Lymphadenopathy: She has no cervical adenopathy. Neurological: She is alert and oriented to person, place, and time. No cranial n erve deficit. Skin: Skin is warm and dry. She is not diaphoretic. Psychiatric: She has a normal mood and affect. Her behavior is normal. ED Course Procedures MDM Number of Diagnoses or Management Options Upper respiratory tract infection, unspecified type: Amount and/or Complexity of Data Reviewed Clinical lab tests: ordered and reviewed Results for orders placed or performed during the hospital encounter of 05/24/18 (from the past 24 hour(s)) Influenza AB Antigen Result Value Ref Range Influenza A Antigen Negative Negative Influenza B Antigen Negative Negative No results found. Medications Administered During Visit Medications - No data to display Patient's Medications New Prescriptions No medications on file Previous Medications GABAPENTIN (NEURONTIN) 100 MG CAPSULE Take 100 mg by mouth daily. Modified Medications No medications on file Discontinued Medications No medications on file Filed VS 05/24/18 1315 BP: 116/62 Pulse: 88 Resp: 18 Temp: 36.7 C (98.1 F) [address] [address] As needed Patient given instructions. ED Clinical Impression 1. Upper respiratory tract infection, unspecified type Patient ED Dispo ED Disposition Discharge Tristan Robert PA-C 05/24/18 1419 [employer] * Syeda Pete RN - 05/24/2018 1:21 PM [employer]OR 28 y/o female c/o fever et chills. Had a "GI bug" last week and was treated in a clinic at [place]. Pt reports it was a virus and she is currently not expe riencing any N/V/D [employer] documented in this encounter Plan of Treatment Not on filedocumented as of this encounter Procedures Comments Procedure Name Priority Date/Time Associated Diagnosis INFLUENZA AB ANTIGEN STAT 05/24/2018 1:45 PM [employer] documented in this encounter Results * Influenza AB Antigen (05/24/2018 1:45 PM [employer]PER[employer]OR) Influenza A Negative Negative [facility] Antigen Comment: HOSPITAL LAB A negative rapid influenza antigen result does not exclude influenza infection. If this patient is being hospitalized, influenza PCR should be ordered. Influenza B Negative Negative [facility] Antigen Comment: HOSPITAL LAB A negative rapid influenza antigen result does not exclude influenza infection. If this patient is being hospitalized, influenza PCR should be ordered. Specimen Nasopharynx, Performing Organization Address City/State/Zipcode Phone Number [facility] [address] [place] [address] LAB documented in this encounter Visit Diagnoses Diagnosis Upper respiratory tract infection, unspecified type - Primary documented in this encounter
--- OUTSIDE RECORDS SUMMARY | 2018-12-11 15:34 | XMS REPORT | Encounter Summary ---
Author Author [facility] Organization [facility] Address Unknown Phone Unavailable Care Team Providers Care Concrete Wall Grinder Operator Name Role Phone VjKayla hitchcock UYEN PCP Encounter Details Care Team Description Date Type Department Silverio Leong DO [address] [place] [address] [phone] 07/05/2018 [facility] Encounter [address] [place] [address] Social History Date Tobacco Use Types Packs/Day Years Used Never Smoker Smokeless Tobacco: Never Used Drinks/Week oz/Week Comments Alcohol Use occassionally Yes Sex Assigned at Date Recorded Not on file Industry Job Start Date Occupation Not on file Not on file Not on file Travel End Travel History Travel Start No recent travel history available. documented as of this encounter Medications at Time of Discharge Start Date End Date Medication Sig Dispensed Refills gabapentin (NEURONTIN) Take 100 mg 0 100 MG capsule by mouth daily. 07/05/2018 07/10/2018 sulfamethoxazole-trimetho Take 1 tablet 10 tablet 0 prim (BACTRIM DS) 800-160 (160 mg of mg per tablet trimethoprim total) by mouth 2 (two) times a day. documented as of this encounter Plan of Treatment Not on filedocumented as of this encounter Visit Diagnoses Not on filedocumented in this encounter
--- OUTSIDE RECORDS SUMMARY | 2018-12-11 15:34 | XMS REPORT | Encounter Summary ---
Author Author [facility] Organization [facility] Address Unknown Phone Unavailable Care Team Providers Care School Cook Name Role Phone Jessa Zabalazabeth UYEN PCP Reason for Visit * Reason Comments Abdominal Pain heart palpations Encounter Details Care Team Description Date Type Department Palpitations (Primary Dx) 07/13/2018 Emergency [facility] [address] [place] [address] Social History Date Tobacco Use Types Packs/Day [...] Signs Reading Time Taken Comments Vital Sign 116/50 07/13/2018 7:28 PM [facility] Blood Pressure 82 07/13/2018 7:28 PM [facility] Pulse 36.8 C (98.3 F) 07/13/2018 7:28 PM [facility] [employer] Temperature 20 07/13/2018 7:28 PM [facility] Respiratory Rate 100% 07/13/2018 7:28 PM [facility] Oxygen Saturation - - Inhaled Oxygen Concentration 127 kg (280 lb) 07/13/2018 6:48 PM [employer] [employer] Weight 172.7 cm (5' 8") 07/13/2018 6:48 PM [facility] [employer] Height 42.57 07/13/2018 6:48 PM [facility] Body Mass Index documented in this encounter Discharge Instructions * Attachments The following attachments cannot be sent through Care Everywhere.* PALPITATIONS (DIVEHI) documented in this encounter Medications at Time of Discharge Start Date End Date Medication Sig Dispensed Refills gabapentin (NEURONTIN) Take 100 mg 0 100 MG capsule by mouth daily. documented as of this encounter ED Notes * Millie Leblanc RN - 07/13/2018 7:34 PM [facility] Discharged to home. Plan to follow up with primary. No distress noted on dischar ge ER [facility]ATE PRINTER * Marilee Bean PA-C - 07/13/2018 7:02 PM [employer] [employer] 07/13/2018 [facility] History Chief Complaint Patient presents with Abdominal Pain heart palpations Patient states she was seen here a couple of weeks ago for urinary tract infecti on and given a prescription for Bactrim. States that she is currently having th e same symptoms as she was when she was treated prior. Also reports intermitten t episodes of palpitations over the past several weeks. Today had symptoms of s hortness of breath and heaviness in her extremities. Past Medical History: Diagnosis Date Anxiety Atrial ectopy Depression Migraines Past Surgical History: Procedure Laterality Date CARPAL TUNNEL RELEASE CHOLECYSTECTOMY heart catherization TONSILLECTOMY No family history on file. Social History Substance Use Topics Smoking status: Never Smoker Smokeless tobacco: Never Used Alcohol use Yes Comment: occassionally Review of Systems Constitutional: Negative. HENT: Negative. Eyes: Negative. Respiratory: Negative. Cardiovascular: Positive for palpitations. Gastrointestinal: Negative. Endocrine: Negative. Genitourinary: Positive for dysuria. Musculoskeletal: Positive for back pain. Skin: Negative. Allergic/Immunologic: Negative. Neurological: Negative. Hematological: Negative. Psychiatric/Behavioral: Negative. Physical Exam BP 139/88 (BP Location: Right arm) | Pulse 90 | Temp 36.8 C (98.2 F) (Oral ) | Resp 20 | Ht 1.727 m (5' 8") | Wt 127 kg (280 lb) | LMP 07/05/2018 | Sp O2 100% | BMI 42.57 kg/m Weight Method: Stated Physical Exam Constitutional: She is oriented to person, place, and time. She appears well-dev eloped and well-nourished. HENT: Head: Normocephalic. Mouth/Throat: Oropharynx is clear and moist. Cardiovascular: Normal rate, regular rhythm and normal heart sounds. Pulmonary/Chest: Effort normal and breath sounds normal. Abdominal: Soft. Bowel sounds are normal. Musculoskeletal: Normal range of motion. Neurological: She is alert and oriented to person, place, and time. Skin: Skin is warm and dry. Capillary refill takes less than 2 seconds. Psychiatric: She has a normal mood and affect. Nursing note and vitals reviewed. ED Course Procedures MDM Number of Diagnoses or Management Options Palpitations: established and worsening Amount and/or Complexity of Data Reviewed Clinical lab tests: ordered and reviewed Tests in the medicine section of CPT: ordered and reviewed Review and summarize past medical records: yes Risk of Complications, Morbidity, and/or Mortality Presenting problems: low Diagnostic procedures: low Management options: low Patient Progress Patient progress: stable ED ECG Interpretation Date and Time STEMI Yes/No ED ECG Interpretation ECG Comments Interpreted by 07/13/18 191 No normal sinus rhythm Inferior Q waves, probable normal variation . RGK ED Clinical Impression 1. Palpitations Patient ED Dispo ED Disposition Discharge Marilee Bean PA-C 07/13/182245 [facility] * Millie Leblanc RN - 07/13/2018 6:52 PM [employer] [employer] Pt was seen in ed last week with dx of uti, given abtx but cont to have same sym ptoms of frequency, abd pain. Does have hx of heart problems and has been havin g heart palpations that is relieved with out tx. [facility] [employer]INTER documented in this encounter Plan of Treatment Not on filedocumented as of this encounter Procedures Comments Procedure Name Priority Date/Time Associated Diagnosis ECG STAT 07/13/2018 7:11 PM [facility] CBC AND DIFF (MANUAL DIFF STAT 07/13/2018 IF NECESSARY) 7:10 PM [facility] [employer] BASIC METABOLIC PANEL STAT 07/13/2018 7:10 PM [employer] [employer] URINE TEST STAT 07/13/2018 6:40 PM [facility] [employer] URINALYSIS REFLEX STAT 07/13/2018 6:40 PM [facility] [employer] documented in this encounter Results * Electrocardiogram (ECG) (07/13/2018 7:11 PM [employer] [employer]) QRSd 88 [facility] QT 348 [facility] QTC 409 [facility] ECGHR 83 [facility] ECGPR 168 [facility] Specimen Narrative Performed At [facility] Test Date:2018-07-13 Pat Name: ANURADHA DACOSTA Department: [facility] ED Room: Gender: Female Television Operator: EP :[id number] Requested By: MARILEE BEAN Order Number: [id number] MD: Matias Gonzalez Measurements IntervalsAxis Rate: 83 P:52 [place]: 168QRS:46 QRSD: 88 T:23 QT: 348 QTc:409 Interpretive Statements SINUS RHYTHM NON DIAGNOSTIC INFERIOR Q WAVES, PROBABLY NORMAL VARIANT Electronically Signed On 07-14-2018 13:08:39 [employer] [employer] by Matias Gonzalez Procedure Note Interface, External Ris In - 07/14/2018 1:09 PM [facility] [facility] Test Date: 2018-07-13 Pat Name: ANURADHA DACOSTA Department: [facility] ED Room: Gender: Female Television Operator: EP : 1990 Requested By: MARILEE BEAN Order Number: [id number] Reading MD: Matias Gonzalez Measurements Intervals Maynard Rate: 83 P: 52 [place]: 168 QRS: 46 QRSD: 88 T: 23 QT: 348 QTc: 409 Interpretive Statements SINUS RHYTHM NON DIAGNOSTIC INFERIOR Q WAVES, PROBABLY NORMAL VARIANT Electronically Signed On 07-14-2018 13:08:39 [employer] by Matias Gonzalez Performing Organization Address City/State/Zipcode Phone Number [facility] * Basic Metabolic Panel (07/13/2018 7:10 PM [facility] [employer]) Sodium 137 133 - 147 MEQ/L [facility] Potassium 4.2 3.5 - 5.3 MEQ/L [facility] Chloride 101 96 - 112 MEQ/L [facility] Carbon Dioxide 29 20 - 32 MEQ/L [facility] Anion Gap 7 5 - 17 [facility] Calcium 9.5 8.4 - 10.5 mg/dL [facility] Glucose 93 70 - 100 mg/dL [facility] Blood Urea 17 7 - 26 mg/dL [facility] Creatinine 0.8 0.4 - 1.1 mg/dL [facility] eGFR Female AA 104 60 - 200 [facility] Comment: HOSPITAL LAB Chronic Kidney Disease less than 60 mL/min/1.73 sq.m Kidney failure less than 15 mL/min/1.73 sq.m eGFR Female 87 60 - 200 [facility] Non-AA Comment: HOSPITAL LAB Chronic Kidney Disease less than 60 mL/min/1.73 sq.m Kidney failure less than 15 mL/min/1.73 sq.m Specimen Blood Performing Organization Address [facility] Phone Number [facility] [address] [address] LAB * CBC and Diff (manual diff if necessary) (07/13/2018 7:10 PM [facility] [employer]) WBC 8.46 4.00 - 11.00 TH/uL [facility] RBC 4.66 4.00 - 5.00 MIL/uL [facility] Hemoglobin 13.9 12.0 - 15.0 g/dL [facility] Hematocrit 40 36 - 45 % [facility] MCV 86 80 - 99 [facility] MCH 30 27 - 34 pg [facility] MCHC 35 32 - 36 % [facility] RDW 13.2 9.0 - 14.5 % [facility] Platelet Count 253 140 - 400 TH/uL [facility] MPV 9.5 9.4 - 12.3 [facility] LAB % Neutrophils 69 45 - 78 % [facility] %Lymphocytes 24 15 - 47 % [facility] %Monocytes 5 0 - 12 % [facility] %Eosinophils 3 0 - 7 % [facility] %Basophils 0 0 - 2 % [facility] # Granulocytes 5.80 1.70 - 6.80 TH/uL [facility] # Lymphocytes 2.05 1.00 - 3.30 TH/uL [facility] # Monocytes 0.38 0.20 - 0.90 TH/uL [facility] # Eosinophils 0.21 0.00 - 0.40 TH/uL [facility] # Basophils 0.02 0.00 - 0.10 TH/uL [facility] Specimen Blood Performing Organization Address [facility] Phone Number [facility] [address] [phone] LAB * Urinalysis Reflex (07/13/2018 6:40 PM [employer]) Appearance, Yellow [facility] Urine [facility] Glucose Urine Negative Negative mg/dL [facility] Bilirubin Urine Negative Negative [facility] Ketones Urine Negative Negative mg/dL [facility] Specific >1.030 (H) 1.001 - 1.030 [facility], [facility] Hemoglobin Negative Negative [facility] LAB PH Urine 5.5 5.0 - 8.0 [facility] Protein Urine Negative Negative mg/dL [facility] LAB Urobilinogen Negative Negative EU/dL [facility] LAB Nitrite Urine Negative Negative [facility] Leukocyte Negative Negative [facility] Specimen Clean Voided Urine Performing Organization Address City/[facility]/Zipcode Phone Number [facility] [address] [place] [address] LAB * Urine Test (07/13/2018 6:40 PM [employer] [employer]) UCG Urine Negative Negative [facility] Specimen Urine Performing Organization Address [facility] Phone Number [facility] [address] [place] [address] LAB documented in this encounter Visit Diagnoses Diagnosis Palpitations - Primary documented in this encounter
--- OUTSIDE RECORDS SUMMARY | 2018-12-11 15:35 | XMS REPORT ---
Author Author ADELE MARTINEZ [facility] Address [address] [place] [address] Care Team Providers Care Hand Riveter Name Role Phone ADELE MARTINEZ Unavailable PROBLEMS Type Condition ICD9-CM Code CBY19-QS Code Onset Dates Condition Status SNOMED Code Problem Abnormal TSH R79.89 Active 847923179 Problem Major depressive disorder, recurrent episode, moderate F33.1 Active 428239885 Problem Atrial ectopy I49.1 Active 897511274 Problem Mixed hyperlipidemia E78.2 Active 465468889 Problem Missed period N92.6 Active 60314254 Problem Bilateral carpal tunnel syndrome G56.03 Active 70792844 Problem Generalized anxiety disorder F41.1 Active 43280615 Problem Primary insomnia F51.01 Active 1393047 Problem Paresthesia of left arm and leg R20.2 Active 25645698 Problem Hypothyroidism (acquired) E03.9 Active 143115261 ALLERGIES No Information ENCOUNTERS Encounter Location Date Diagnosis [place] [id number] [place] [phone] Jun, [facility] [place] [id number] [place] [address] May, [facility] [place] [id number] [place] [address] Apr, [facility] [place] [id number] [place] [address] Apr, Major depressive disorder, recurrent episode, moderate F33.1 and Generalized anxiety disorder F41.1 [facility] [place] [id number] [place] [address] Apr, [facility] [place] [id number] [place] [address] Mar, Fatigue, unspecified type R53.83 ; Frequent urination R35.0 ; Lower abdominal pain R10.30 ; Missed period N92.6 ; Abnormal TSH R79.89 and BMI 40.0- 44.9, adult Z68.41 [place] [address] [address] Mar, Major depressive disorder, recurrent episode, moderate F33.1 and Generalized anxiety disorder F41.1 [place] [address] [address] Mar, Major depressive disorder, recurrent episode, moderate F33.1 and Generalized anxiety disorder F41.1 [place] [address] [address] Feb, [place] [address] [address] Jan, Bilateral carpal tunnel syndrome G56.03 and BMI 40.0-44.9, adult Z68.41 [place] [address] [address] Dec, [place] [address] [address] Dec, Abnormal TSH R79.89 [place] [address] [address] Dec, Hypothyroidism (acquired) E03.9 ; BMI 40.0-44.9, adult Z68.41 ; Mixed hyperlipidemia E78.2 ; Paresthesia of left arm and leg R20.2 ; Atrial ectopy I49.1 and Primary insomnia F51.01 [place] [address] [address] Nov, [place] [address] [address] Jun, [place] [address] [address] Jun, [place] [address] [place] [address] Apr, [place] [id number] [place] [address] Apr, Acute non-recurrent frontal sinusitis J01.10 and Right medial knee pain M25.561 [place] [address] [place] [address] Feb, [place] [id number] [place] [address] Dec, Major depressive disorder, recurrent episode, moderate F33.1 and Generalized anxiety disorder F41.1 [place] [address] [place] [address] Dec, Major depressive disorder, recurrent episode, moderate F33.1 and Generalized anxiety disorder F41.1 [place] [id number] [place] [address] Nov, Major depressive disorder, recurrent episode, moderate F33.1 and Generalized anxiety disorder F41.1 [place] [address] [place] [address] Nov, Major depressive disorder, recurrent episode, moderate F33.1 and Generalized anxiety disorder F41.1 [place] [address] [place] [address] Oct, Peripheral edema R60.9 ; Morbid (severe) obesity due to excess calories E66.01 and Leg cramps R25.2 [place] [address] [address] Oct, Major depressive disorder, recurrent episode, moderate F33.1 and Generalized anxiety disorder F41.1 [place] [address] [address] September, Major depressive disorder, recurrent episode, moderate F33.1 and Generalized anxiety disorder F41.1 [place] [id number] [address] Aug, [facility] [place] [id number] [place] [address] Jul, [facility] [place] [id number] [place] [address] Jun, [facility] [place] [id number] [place] [address] Apr, Generalized anxiety disorder F41.1 and Major depressive disorder, recurrent, mild F33.0 [facility] [place] [id number] [place] [address] Apr, Generalized anxiety disorder F41.1 and Major depressive disorder, recurrent, mild F33.0 [facility] [place] [id number] [place] [address] Apr, Encounter for removal of skin lesion L98.9 [facility] [place] [id number] [place] [address] Apr, [facility] [place] [id number] [place] [address] Apr, Encounter for immunization Z23 [facility] [place] [id number] [place] [address] Apr, Generalized anxiety disorder F41.1 [facility] [place] [address] [place] [address] Mar, Generalized anxiety disorder F41.1 and Major depressive disorder, recurrent, mild F33.0 [facility] [place] [address] [place] [address] Mar, [facility] [place] [id number] [place] [address] 18 Mar, 2016 Headache around the eyes R51 and Seizure-like activity R56.9 [facility] [place] [id number] [place] [address] 14 Mar, 2016 Generalized anxiety disorder F41.1 and Major depressive disorder, recurrent, mild F33.0 [facility] [place] [id number] [place] [address] 08 Mar, 2016 Atrial ectopy I49.1 [facility] [place] [id number] [place] [address] 08 Mar, 2016 Generalized anxiety disorder F41.1 and Major depressive disorder, recurrent, mild F33.0 [facility] [place] [id number] [place] [address] Mar, Major depressive disorder, recurrent, mild F33.0 and Generalized anxiety disorder F41.1 [facility] [place] [id number] [place] [address] Feb, [facility] [place] [id number] [place] [address] Feb, Major depressive disorder, recurrent episode, moderate F33.1 [facility] [place] [id number] [place] [address] Feb, Major depressive disorder, recurrent, mild F33.0 [facility] [place] [id number] [place] [address] Feb, [facility] [place] [id number] [place] [address] Feb, Major depressive disorder, recurrent episode, moderate F33.1 [facility] [place] [id number] [place] [address] Jan, Unprotected sexual intercourse Z72.51 [facility] [place] [id number] [place] [address] Jan, [facility] [place] [id number] [place] [address] Jan, Major depressive disorder, recurrent episode, moderate F33.1 [facility] [place] [id number] [place] [address] Dec, Major depressive disorder, recurrent episode, moderate F33.1 [place] [address] [address] Dec, Major depressive disorder, recurrent episode, moderate F33.1 [place] [address] [address] 16 Dec, 2015 Encounter for well woman exam Z01.419 ; Encounter for screening for malignant neoplasm of cervix Z12.4 ; Screening for STD sexually transmitted disease Z11.3 ; Encounter for preventive health examination Z00.00 and Encounter for oral contraception initial prescription Z30.011 [place] [address] [place] [address] Dec, [place] [id number] [place] [address] Dec, Primary insomnia F51.01 ; Irregular menses N92.6 and Morbid (severe) obesity due to excess calories E66.01 [place] [address] [place] [address] Dec, Major depressive disorder, recurrent episode, moderate F33.1 [place] [address] [place] [address] Dec, Major depressive disorder, recurrent episode, moderate F33.1 [place] [address] [place] [address] Dec, [place] [address] [place] [address] Nov, Morbid (severe) obesity due to excess calories E66.01 ; Excessive daytime sleepiness G47.19 ; Pelvic pain R10.2 and Irregular menses N92.6 [place] [address] [place] [address] Oct, Routine health maintenance Z00.00 ; Family history of diabetes mellitus Z83.3 ; History of thyroid disease Z86.39 ; Body mass index (BMI) of 45.0-49.9 in adult Z68.42 ; Morbid (severe) obesity due to excess calories E66.01 ; Atrial ectopy I49.1 and History of seizures Z87.898 [facility] [address] [place] [address] Nov, Dental examination V72.2 IMMUNIZATIONS No Known Immunizations SOCIAL HISTORY Never Assessed REASON FOR VISIT Requests return call PLAN OF CARE VITAL SIGNS MEDICATIONS Unknown Medications RESULTS No Results PROCEDURES No Known procedures INSTRUCTIONS MEDICATIONS ADMINISTERED No Known Medications MEDICAL (GENERAL) HISTORY Type Description Date Medical History epilepsy Medical History Hypothyroidism Medical History asthma Medical History Irregular heart rhythm Medical History Irregular menses Medical History Family history of diabetes mellitus Medical History History of thyroid disease Medical History History of seizures Surgical History tonsillectomy Surgical History heart cath- no interventions at that time Surgical History colonoscopy Surgical History EGD Surgical History Cholecystectomy- Dr. Martinez 01/10/18 Surgical History carpal tunnel release 03/2018 Hospitalization History Seizure--[facility] 05/2015 Hospitalization History Reaction to Buspar 02/2016
--- OUTSIDE RECORDS SUMMARY | 2018-12-11 15:35 | XMS REPORT | Clinical Summary ---
Author Author [facility] Organization [facility] Address Unknown Phone Unavailable Care Team Providers Care Ice Cream Chef Name Role Phone Bernardo العراقي APRN PCP Source Comments Some departments are not documenting in the electronic medical record. If you d o not see the information that you expected, contact Release of Information in [facility] [employer] Information Management department at [phone] for further assistan ce in locating additional records.[facility] Allergies Comments Active Allergy Reactions Severity Noted Date Sertraline SEIZURES High 02/05/2017 Medications End Date Status Medication Sig Dispensed Refills Start Date Active NO HOME MEDICATIONS 0 Active Problems No known active problems Family History Medical History Relation Name Comments Hypertension Father None Reported Mother Relation Name Status Comments Father Alive Mother Alive Social History Date Tobacco Use Types Packs/Day Years Used Never Smoker Smokeless Tobacco: Never Used Tobacco Cessation: Counseling Given: No Drinks/Week oz/Week Comments Alcohol Use Yes Sex Assigned at Date Recorded Not on file Industry Job Start Date Occupation Not on file Not on file Not on file Travel End Travel History Travel Start No recent travel history available. Last Filed Vital Signs Reading Time Taken Comments Vital Sign 123/55 11/26/2017 11:29 AM CDT Blood Pressure 78 11/26/2017 11:29 AM CDT Pulse - - Temperature 20 11/26/2017 11:29 AM CDT Respiratory Rate - - Oxygen Saturation - - Inhaled Oxygen Concentration 130.9 kg (288 lb 8 oz) 11/26/2017 11:29 AM CDT Weight 172.7 cm (5' 8") 11/26/2017 11:29 AM CDT Height 43.87 11/26/2017 11:29 AM CDT Body Mass Index Plan of Treatment Health Maintenance Due Date Last Done Comments PHYSICAL (COMPREHENSIVE) 02/02/1999 EXAM HIV SCREENING 02/02/2007 HPV VACCINES (1 - Female 02/02/2007 3-dose series) DTAP/TDAP VACCINES (1 - 02/02/2010 Tdap) INFLUENZA VACCINE 02/18/2019 02/25/2011, 03/18/2009, 03/09/2008, Additional history exists CERVICAL CANCER SCREENING 02/06/2020 02/05/2017 Results Not on filefrom Last 3 Months Insurance Type Payer Benefit Subscriber ID Effective Phone Address Plan / Dates Group Medicaid [facility] MEDICA[facility] xxxxxxxxxxx 2010- [facility] Present HEALTH Advance Directives Patient Minister Of Religion Explanation Type Date Recorded Advance Directive/DPOA
--- OUTSIDE RECORDS SUMMARY | 2018-12-11 15:35 | XMS REPORT ---
Author Author DAGMAR AUSTIN [facility] Address [address] [place] [address] Care Team Providers Care Cable Ferry Operator Name Role Phone DAGMAR AUSTIN Unavailable PROBLEMS Type Condition ICD9-CM Code CFK65-RO Code Onset Dates Condition Status SNOMED Code Problem Abnormal TSH R79.89 Active 498785213 Problem Major depressive disorder, recurrent episode, moderate F33.1 Active 386589162 Problem Atrial ectopy I49.1 Active 811188085 Problem Mixed hyperlipidemia E78.2 Active 139260804 Problem Missed period N92.6 Active 22935980 Problem Bilateral carpal tunnel syndrome G56.03 Active 16811951 Problem Generalized anxiety disorder F41.1 Active 16501546 Problem Primary insomnia F51.01 Active 3650932 Problem Paresthesia of left arm and leg R20.2 Active 95399997 Problem Hypothyroidism (acquired) E03.9 Active 461490681 ALLERGIES No Information ENCOUNTERS Encounter Location Date Diagnosis [place] [id number] [place] [address] Apr, [place] [id number] [place] [address] Apr, [place] [address] [address] Mar, Fatigue, unspecified type R53.83 ; Frequent urination R35.0 ; Lower abdominal pain R10.30 ; Missed period N92.6 ; Abnormal TSH R79.89 and BMI 40.0- 44.9, adult Z68.41 [place] [id number] [place] [address] 09 Mar, 2018 Major depressive disorder, recurrent episode, moderate F33.1 and Generalized anxiety disorder F41.1 [place] [id number] [place] [address] Mar, Major depressive disorder, recurrent episode, moderate F33.1 and Generalized anxiety disorder F41.1 [place] [address] [address] Feb, [place] [id number] [place] [address] Jan, Bilateral carpal tunnel syndrome G56.03 and BMI 40.0-44.9, adult Z68.41 [place] [address] [address] Dec, [place] [address] [address] Dec, Abnormal TSH R79.[address] [address] Dec, Hypothyroidism (acquired) E03.9 ; BMI 40.0-44.9, adult Z68.41 ; Mixed hyperlipidemia E78.2 ; Paresthesia of left arm and leg R20.2 ; Atrial ectopy I49.1 and Primary insomnia F51.01 [place] [id number] [place] [address] Nov, [place] [id number] [place] [address] Jun, [place] [address] [address] Jun, [place] [id number] [place] [address] Apr, [place] [address] [address] Apr, Acute non-recurrent frontal sinusitis J01.10 and Right medial knee pain M25.561 [place] [address] [address] Feb, [facility] [address], [place] [address] Dec, Major depressive disorder, recurrent episode, moderate F33.1 and Generalized anxiety disorder F41.1 [facility] [address] [place] [address] Dec, Major depressive disorder, recurrent episode, moderate F33.1 and Generalized anxiety disorder F41.1 [place] [id number] [place] [address] Nov, Major depressive disorder, recurrent episode, moderate F33.1 and Generalized anxiety disorder F41.1 [place] [id number] [place] [address] Nov, Major depressive disorder, recurrent episode, moderate F33.1 and Generalized anxiety disorder F41.1 [place] [id number] [place] [address] Oct, Peripheral edema R60.9 ; Morbid (severe) obesity due to excess calories E66.01 and Leg cramps R25.2 [place] [address] [place] [address] Oct, Major depressive disorder, recurrent episode, moderate F33.1 and Generalized anxiety disorder F41.1 [place] [address], [place] [address] September, Major depressive disorder, recurrent episode, moderate F33.1 and Generalized anxiety disorder F41.1 [place] [address] [address] Aug, [place] [id number] [place] [address] Jul, [facility] [address], [place] [address] Jun, [place] [address] [place] [address] Apr, Generalized anxiety disorder F41.1 and Major depressive disorder, recurrent, mild F33.0 [facility] [address] [address] Apr, Generalized anxiety disorder F41.1 and Major depressive disorder, recurrent, mild F33.0 [facility] [address] [address] Apr, Encounter for removal of skin lesion L98.9 [facility] [address] [address] Apr, [place] [address] [address] Apr, Encounter for immunization Z23 [place] [address] [address] Apr, Generalized anxiety disorder F41.1 [place] [address] [address] 30 Mar, 2016 Generalized anxiety disorder F41.1 and Major depressive disorder, recurrent, mild F33.0 [place] [address] [address] Mar, [place] [address] [address] 18 Mar, 2016 Headache around the eyes R51 and Seizure-like activity R56.9 [place] [address] [address] 14 Mar, 2016 Generalized anxiety disorder F41.1 and Major depressive disorder, recurrent, mild F33.0 [place] [address] [address] 08 Mar, 2016 Atrial ectopy I49.1 [place] [address] [address] 08 Mar, 2016 Generalized anxiety disorder F41.1 and Major depressive disorder, recurrent, mild F33.0 [place] [address] [address] Mar, Major depressive disorder, recurrent, mild F33.0 and Generalized anxiety disorder F41.1 [facility] [address] [address] Feb, [facility] [id number] [place] [address] Feb, Major depressive disorder, recurrent episode, moderate F33.1 [facility] [address], [place] [address] Feb, Major depressive disorder, recurrent, mild F33.0 [facility] [address] [place] [address] Feb, [facility] [address] [place] [address] Feb, Major depressive disorder, recurrent episode, moderate F33.1 [facility] [address], [place] [address] 27 Jan, 2016 Unprotected sexual intercourse Z72.51 [facility] [address] [place] [address] 06 Jan, 2016 [facility] [address], [place] [address] Jan, Major depressive disorder, recurrent episode, moderate F33.1 [facility] [address], [place] [address] Dec, Major depressive disorder, recurrent episode, moderate F33.1 [facility] [address], [place] [address] Dec, Major depressive disorder, recurrent episode, moderate F33.1 [facility] [address], [place] [address] 16 Dec, 2015 Encounter for well woman exam Z01.419 ; Encounter for screening for malignant neoplasm of cervix Z12.4 ; Screening for STD sexually transmitted disease Z11.3 ; Encounter for preventive health examination Z00.00 and Encounter for oral contraception initial prescription Z30.011 [place] [id number] [place] [address] Dec, [place] [id number] [place] [address] Dec, Primary insomnia F51.01 ; Irregular menses N92.6 and Morbid (severe) obesity due to excess calories E66.01 [place] [id number] [place] [address] Dec, Major depressive disorder, recurrent episode, moderate F33.[address] [address] Dec, Major depressive disorder, recurrent episode, moderate F33.[address] [address] Dec, [place] [id number] [place] [address] Nov, Morbid (severe) obesity due to excess calories E66.01 ; Excessive daytime sleepiness G47.19 ; Pelvic pain R10.2 and Irregular menses N92.6 [place] [id number] [place] [address] Oct, Routine health maintenance Z00.00 ; Family history of diabetes mellitus Z83.3 ; History of thyroid disease Z86.39 ; Body mass index (BMI) of 45.0-49.9 in adult Z68.42 ; Morbid (severe) obesity due to excess calories E66.01 ; Atrial ectopy I49.1 and History of seizures Z87.898 [facility] [address] [place] [address] Nov, Dental examination V72.2 IMMUNIZATIONS No Known Immunizations SOCIAL HISTORY Never Assessed REASON FOR VISIT Labs PLAN OF CARE VITAL SIGNS MEDICATIONS Unknown [...]
--- OUTSIDE RECORDS SUMMARY | 2018-12-11 15:35 | XMS REPORT ---
Author Author ADELE MARTINEZ [facility] Address [address] [place] [address] Care Team Providers Care Middle [employer] Principal Name Role Phone ADELE MARTINEZ Unavailable PROBLEMS Type Condition ICD9-CM Code RKG77-OE Code Onset Dates Condition Status SNOMED Code Problem Abnormal TSH R79.89 Active 770963214 Problem Major depressive disorder, recurrent episode, moderate F33.1 Active 105294779 Problem Atrial ectopy I49.1 Active 528264663 Problem Mixed hyperlipidemia E78.2 Active 441034428 Problem Missed period N92.6 Active 43816483 Problem Bilateral carpal tunnel syndrome G56.03 Active 08811383 Problem Generalized anxiety disorder F41.1 Active 56318162 Problem Primary insomnia F51.01 Active 4430504 Problem Paresthesia of left arm and leg R20.2 Active 33076995 Problem Hypothyroidism (acquired) E03.9 Active 331432645 ALLERGIES No Information ENCOUNTERS Encounter Location Date Diagnosis [place] [id number] [place] [address] Jun, [facility] [id number] [place] [address] May, [facility] [id number] [place] [address] Apr, [facility] [id number] [place] [address] Apr, Major depressive disorder, recurrent episode, moderate F33.1 and Generalized anxiety disorder F41.1 [facility] [id number] [place] [address] Apr, [facility] [id number] [place] [address] Mar, Fatigue, unspecified type R53.83 ; Frequent urination R35.0 ; Lower abdominal pain R10.30 ; Missed period N92.6 ; Abnormal TSH R79.89 and BMI 40.0- 44.9, adult Z68.41 [place] [address] [address] Mar, Major depressive disorder, recurrent episode, moderate F33.1 and Generalized anxiety disorder F41.1 [place] [address] [address] Mar, Major depressive disorder, recurrent episode, moderate F33.1 and Generalized anxiety disorder F41.1 [place] [address] [address] Feb, [place] [address] [address] Jan, Bilateral carpal tunnel syndrome G56.03 and BMI 40.0-44.9, adult Z68.41 [place] [address] [address] Dec, [place] [address] [address] Dec, Abnormal TSH R79.89 [place] [address] [address] Dec, Hypothyroidism (acquired) E03.9 ; BMI 40.0-44.9, adult Z68.41 ; Mixed hyperlipidemia E78.2 ; Paresthesia of left arm and leg R20.2 ; Atrial ectopy I49.1 and Primary insomnia F51.01 [place] [address] [address] Nov, [place] [address] [address] Jun, [place] [address] [address] Jun, [place] [address], [place] [address] Apr, [place] [id number] [place] [address] Apr, Acute non-recurrent frontal sinusitis J01.10 and Right medial knee pain M25.561 [place] [address] [place] [address] Feb, [place] [id number] [place] [address] Dec, Major depressive disorder, recurrent episode, moderate F33.1 and Generalized anxiety disorder F41.1 [place] [address] [place] [address] Dec, Major depressive disorder, recurrent episode, moderate F33.1 and Generalized anxiety disorder F41.1 [place] [id number] [place] [address] Nov, Major depressive disorder, recurrent episode, moderate F33.1 and Generalized anxiety disorder F41.1 [place] [address] [place] [address] Nov, Major depressive disorder, recurrent episode, moderate F33.1 and Generalized anxiety disorder F41.1 [place] [address] [place] [address] Oct, Peripheral edema R60.9 ; Morbid (severe) obesity due to excess calories E66.01 and Leg cramps R25.2 [place] [address], [place] [address] Oct, Major depressive disorder, recurrent episode, moderate F33.1 and Generalized anxiety disorder F41.1 [place] [address], [place] [address] September, Major depressive disorder, recurrent episode, moderate F33.1 and Generalized anxiety disorder F41.1 [place] [address], [place] [address] Aug, [facility] [id number] [place] [address] Jul, [facility] [id number] [place] [address] Jun, [facility] [id number] [place] [address] Apr, Generalized anxiety disorder F41.1 and Major depressive disorder, recurrent, mild F33.0 [facility] [id number] [place] [address] Apr, Generalized anxiety disorder F41.1 and Major depressive disorder, recurrent, mild F33.0 [facility] [id number] [place] [address] Apr, Encounter for removal of skin lesion L98.9 [facility] [id number] [place] [address] Apr, [facility] [id number] [place] [address] Apr, Encounter for immunization Z23 [facility] [id number] [place] [address] Apr, Generalized anxiety disorder F41.1 [facility] [address] [place] [address] Mar, Generalized anxiety disorder F41.1 and Major depressive disorder, recurrent, mild F33.0 [facility] [address] [place] [address] Mar, [facility] [id number] [place] [address] 18 Mar, 2016 Headache around the eyes R51 and Seizure-like activity R56.9 [facility] [id number] [place] [address] 14 Mar, 2016 Generalized anxiety disorder F41.1 and Major depressive disorder, recurrent, mild F33.0 [facility] [id number] [place] [address] 08 Mar, 2016 Atrial ectopy I49.1 [facility] [id number] [place] [address] 08 Mar, 2016 Generalized anxiety disorder F41.1 and Major depressive disorder, recurrent, mild F33.0 [facility] [id number] [place] [address] Mar, Major depressive disorder, recurrent, mild F33.0 and Generalized anxiety disorder F41.1 [facility] [id number] [place] [address] Feb, [facility] [id number] [place] [address] Feb, Major depressive disorder, recurrent episode, moderate F33.1 [facility] [id number] [place] [address] Feb, Major depressive disorder, recurrent, mild F33.0 [facility] [id number] [place] [address] Feb, [facility] [id number] [place] [address] Feb, Major depressive disorder, recurrent episode, moderate F33.1 [facility] [id number] [place] [address] Jan, Unprotected sexual intercourse Z72.51 [facility] [id number] [place] [address] Jan, [facility] [id number] [place] [address] Jan, Major depressive disorder, recurrent episode, moderate F33.1 [facility] [id number] [place] [address] Dec, Major depressive disorder, recurrent episode, moderate F33.1 [place] [address], [place] [address] Dec, Major depressive disorder, recurrent episode, moderate F33.1 [place] [address], [place] [address] 16 Dec, 2015 Encounter for well woman exam Z01.419 ; Encounter for screening for malignant neoplasm of cervix Z12.4 ; Screening for STD sexually transmitted disease Z11.3 ; Encounter for preventive health examination Z00.00 and Encounter for oral contraception initial prescription Z30.011 [place] [address] [place] [address] Dec, [place] [id number] [place] [address] Dec, Primary insomnia F51.01 ; Irregular menses N92.6 and Morbid (severe) obesity due to excess calories E66.01 [place] [address], [place] [address] Dec, Major depressive disorder, recurrent episode, moderate F33.1 [place] [address], [place] [address] Dec, Major depressive disorder, recurrent episode, moderate F33.1 [place] [id number] [place] [address] Dec, [place] [address] [place] [address] Nov, Morbid (severe) obesity due to excess calories E66.01 ; Excessive daytime sleepiness G47.19 ; Pelvic pain R10.2 and Irregular menses N92.6 [place] [address] [place] [address] Oct, Routine health maintenance Z00.00 ; Family history of diabetes mellitus Z83.3 ; History of thyroid disease Z86.39 ; Body mass index (BMI) of 45.0-49.9 in adult Z68.42 ; Morbid (severe) obesity due to excess calories E66.01 ; Atrial ectopy I49.1 and History of seizures Z87.898 [facility] [address] [place] [address] Nov, Dental examination V72.2 IMMUNIZATIONS No Known Immunizations SOCIAL HISTORY Never Assessed REASON FOR VISIT f/u PLAN OF CARE Activity Details Follow Up Next available Reason: F/U VITAL SIGNS MEDICATIONS Unknown Medications RESULTS No Results PROCEDURES Procedure Date Ordered Result Body Site Psychotherapy, patient and family, 45 minutes, established patient May 06, 2018 INSTRUCTIONS MEDICATIONS ADMINISTERED No Known Medications MEDICAL [...]
[2018-12-11] MEDS ORDERED: MULT-974 PO (15:36)
[2018-12-11] MEDS ORDERED: MUPI22OI2 (15:36)
--- OUTSIDE RECORDS SUMMARY | 2018-12-11 15:36 | XMS REPORT ---
Author Author DAGMAR AUSTIN [facility] Address [address] [place] [address] Care Team Providers Care Stock Turner Name Role Phone DAGMAR AUSTIN Unavailable PROBLEMS Type Condition ICD9-CM Code FHW84-MM Code Onset Dates Condition Status SNOMED Code Problem Abnormal TSH R79.89 Active 968758956 Problem Atrial ectopy I49.1 Active 354213018 Problem Mixed hyperlipidemia E78.2 Active 275108774 Problem Bilateral carpal tunnel syndrome G56.03 Active 06940912 Problem Paresthesia of left arm and leg R20.2 Active 83373482 Problem Primary insomnia F51.01 Active 3161201 Problem Major depressive disorder, recurrent episode, moderate F33.1 Active 013433177 Problem Hypothyroidism (acquired) E03.9 Active 486584461 Problem Generalized anxiety disorder F41.1 Active 01807598 ALLERGIES No Information ENCOUNTERS Encounter Location Date Diagnosis [facility] [address] [address] Feb, [place] [address] [address] Jan, Bilateral carpal tunnel syndrome G56.03 and BMI 40.0-44.9, adult Z68.41 [facility] [address] [place] [id number] [place] [address] Dec, [facility] [address] [address] Dec, Abnormal TSH R79.89 [facility] [address] [address] Dec, Hypothyroidism (acquired) E03.9 ; BMI 40.0-44.9, adult Z68.41 ; Mixed hyperlipidemia E78.2 ; Paresthesia of left arm and leg R20.2 ; Atrial ectopy I49.1 and Primary insomnia F51.01 [place] [address] [place] [id number] [place] [address] Nov, [place] [address] [place] [id number] [place] [address] Jun, [place] [address] [place] [id number] [place] [address] Jun, [place] [address] [place] [id number] [place] [address] Apr, [place] [address] [address] Apr, Acute non-recurrent frontal sinusitis J01.10 and Right medial knee pain M25.561 [place] [address] [place] [id number] [place] [address] Feb, [place] [address] [place] [id number] [place] [address] Dec, Major depressive disorder, recurrent episode, moderate F33.1 and Generalized anxiety disorder F41.1 [place] [address] [place] [id number] [place] [address] Dec, Major depressive disorder, recurrent episode, moderate F33.1 and Generalized anxiety disorder F41.1 [place] [address] [place] [id number] [place] [address] Nov, Major depressive disorder, recurrent episode, moderate F33.1 and Generalized anxiety disorder F41.1 [place] [address] [place] [id number] [place] [address] Nov, Major depressive disorder, recurrent episode, moderate F33.1 and Generalized anxiety disorder F41.1 [place] [address] [place] [id number] [place] [address] Oct, Peripheral edema R60.9 ; Morbid (severe) obesity due to excess calories E66.01 and Leg cramps R25.2 [facility] [address] [place] [address] Oct, Major depressive disorder, recurrent episode, moderate F33.1 and Generalized anxiety disorder F41.1 [facility] [address] [place] [id number] [place] [address] September, Major depressive disorder, recurrent episode, moderate F33.1 and Generalized anxiety disorder F41.1 [facility] [address] [place] [id number] [place] [address] Aug, [facility] [address] [place] [id number] [place] [address] Jul, [facility] [address] [place] [id number] [place] [address] Jun, [facility] [address] [place] [id number] [place] [address] Apr, Generalized anxiety disorder F41.1 and Major depressive disorder, recurrent, mild F33.0 [facility] [address] [place] [id number] [place] [address] Apr, Generalized anxiety disorder F41.1 and Major depressive disorder, recurrent, mild F33.0 [facility] [address] [place] [id number] [place] [address] Apr, Encounter for removal of skin lesion L98.9 [facility] [address] [place] [id number] [place] [address] Apr, [facility] [address] [place] [id number] [place] [address] Apr, Encounter for immunization Z23 [facility] [address] [place] [id number] [place] [address] Apr, Generalized anxiety disorder F41.1 [facility] [address] [place] [id number] [place] [address] Mar, Generalized anxiety disorder F41.1 and Major depressive disorder, recurrent, mild F33.0 [facility] [address] [place] [id number] [place] [address] Mar, [facility] [address] [place] [id number] [place] [address] Mar, Headache around the eyes R51 and Seizure-like activity R56.9 [facility] [address] [place] [id number] [place] [address] Mar, Generalized anxiety disorder F41.1 and Major depressive disorder, recurrent, mild F33.0 [facility] [address] [place] [id number] [place] [address] Mar, Atrial ectopy I49.1 [facility] [address] [place] [id number] [place] [address] 08 Mar, 2016 Generalized anxiety disorder F41.1 and Major depressive disorder, recurrent, mild F33.0 [facility] [address] [place] [id number] [place] [address] Mar, Major depressive disorder, recurrent, mild F33.0 and Generalized anxiety disorder F41.1 [facility] [address] [place] [id number] [place] [address] Feb, [facility] [address] [place] [id number] [place] [address] Feb, Major depressive disorder, recurrent episode, moderate F33.1 [facility] [address] [place] [address] Feb, Major depressive disorder, recurrent, mild F33.0 [facility] [address] [place] [id number] [place] [address] Feb, [facility] [address] [place] [id number] [place] [address] Feb, Major depressive disorder, recurrent episode, moderate F33.1 [facility] [address] [place] [id number] [place] [address] Jan, Unprotected sexual intercourse Z72.51 [facility] [address] [address] Jan, [facility] [address] [place] [id number] [place] [address] Jan, Major depressive disorder, recurrent episode, moderate F33.1 [facility] [address] [place] [id number] [place] [address] Dec, Major depressive disorder, recurrent episode, moderate F33.1 [place] [address] [place] [address] Dec, Major depressive disorder, recurrent episode, moderate F33.1 [place] [address] [place] [address] [place] [address] Dec, Encounter for well woman exam Z01.419 ; Encounter for screening for malignant neoplasm of cervix Z12.4 ; Screening for STD sexually transmitted disease Z11.3 ; Encounter for preventive health examination Z00.00 and Encounter for oral contraception initial prescription Z30.011 [place] [address] [place] [address] Dec, [place] [address] [place] [address] [place] [address] Dec, Primary insomnia F51.01 ; Irregular menses N92.6 and Morbid (severe) obesity due to excess calories E66.01 [place] [address], [place] [address] Dec, Major depressive disorder, recurrent episode, moderate F33.1 [facility] [address] [place] [address] Dec, Major depressive disorder, recurrent episode, moderate F33.1 [facility] [address] [place] [address] Dec, [facility] [address] [place] [id number] [place] [address] Nov, Morbid (severe) obesity due to excess calories E66.01 ; Excessive daytime sleepiness G47.19 ; Pelvic pain R10.2 and Irregular menses N92.6 [facility] [address] [facility] [id number] [place] [address] Oct, Routine health maintenance Z00.00 ; Family history of diabetes mellitus Z83.3 ; History of thyroid disease Z86.39 ; Body mass index (BMI) of 45.0-49.9 in adult Z68.42 ; Morbid (severe) obesity due to excess calories E66.01 ; Atrial ectopy I49.1 and [facility] of [facility] [address] [place] [address] Nov, Dental examination V72.2 IMMUNIZATIONS No Known Immunizations SOCIAL HISTORY Never Assessed REASON FOR VISIT PLAN OF CARE VITAL SIGNS MEDICATIONS Unknown [...] EGD Surgical History Cholecystectomy- Dr. Martinez 01/10/18 Hospitalization History Seizure--[facility] 05/2015 Hospitalization History Reaction to Buspar 02/2016
--- OUTSIDE RECORDS SUMMARY | 2018-12-11 15:36 | XMS REPORT ---
Author Author DAGMAR AUSTIN Organization [facility] Address [address] [place] [address] Care Team Providers Care Head Of Marketing Name Role Phone DAGMAR AUSTIN Unavailable PROBLEMS Type Condition ICD9-CM Code DTD24-XX Code Onset Dates Condition Status SNOMED Code Problem Abnormal TSH R79.89 Active 791797189 Problem Major depressive disorder, recurrent episode, moderate F33.1 Active 750959285 Problem Atrial ectopy I49.1 Active 319335144 Problem Mixed hyperlipidemia E78.2 Active 333674267 Problem Missed period N92.6 Active 52649165 Problem Bilateral carpal tunnel syndrome G56.03 Active 70973480 Problem Generalized anxiety disorder F41.1 Active 66285456 Problem Primary insomnia F51.01 Active 7188426 Problem Paresthesia of left arm and leg R20.2 Active 75338239 Problem Hypothyroidism (acquired) E03.9 Active 729196277 ALLERGIES Substance Reaction Event Type Date Status Zoloft seizure Drug Allergy Mar, Active Tamiflu seizure Drug Allergy Mar, Active Citalopram Hydrobromide itching Drug Allergy Mar, Active BuSpar Unknown Drug Allergy Mar, Active Nickel Unknown Non Drug Allergy Mar, Active Red Dye Unknown Non Drug Allergy Mar, Active Latex Unknown Non Drug Allergy Mar, Active ENCOUNTERS Encounter Location Date Diagnosis [facility] [address] [place] [id number] [address] Apr, [facility] [address] [address] Mar, Fatigue, unspecified type R53.83 ; Frequent urination R35.0 ; Lower abdominal pain R10.30 ; Missed period N92.6 ; Abnormal TSH R79.89 and BMI 40.0- 44.9, adult Z68.41 [facility] [address] [place] [id number] [place] [address] 09 Mar, 2018 Major depressive disorder, recurrent episode, moderate F33.1 and Generalized anxiety disorder F41.1 [place] [address] [address] 08 Mar, 2018 Major depressive disorder, recurrent episode, moderate F33.1 and Generalized anxiety disorder F41.1 [place] [address] [address] Feb, [place] [address] [address] Jan, Bilateral carpal tunnel syndrome G56.03 and BMI 40.0-44.9, adult Z68.[address] [address] Dec, [address] [address] Dec, Abnormal TSH R79.[address] [address] Dec, Hypothyroidism (acquired) E03.9 ; BMI 40.0-44.9, adult Z68.41 ; Mixed hyperlipidemia E78.2 ; Paresthesia of left arm and leg R20.2 ; Atrial ectopy I49.1 and Primary insomnia F51.01 [place] [address] [place] [id number] [place] [address] Nov, [place] [address] [place] [id number] [place] [address] Jun, [place] [address] [address] Jun, [place] [address] [place] [id number] [place] [address] Apr, [place] [address] [address] Apr, Acute non-recurrent frontal sinusitis J01.10 and Right medial knee pain M25.561 [place] [address] [place] [address] Feb, [facility] [address] [place] [id number] [place] [address] Dec, Major depressive disorder, recurrent episode, moderate F33.1 and Generalized anxiety disorder F41.1 [place] [address] [place] [id number] [place] [address] Dec, Major depressive disorder, recurrent episode, moderate F33.1 and Generalized anxiety disorder F41.1 [place] [address] [place] [id number] [place] [address] Nov, Major depressive disorder, recurrent episode, moderate F33.1 and Generalized anxiety disorder F41.1 [place] [address] [place] [id number] [place] [address] Nov, Major depressive disorder, recurrent episode, moderate F33.1 and Generalized anxiety disorder F41.1 [place] [address] [place] [id number] [place] [address] Oct, Peripheral edema R60.9 ; Morbid (severe) obesity due to excess calories E66.01 and Leg cramps R25.2 [place] [address] [address] Oct, Major depressive disorder, recurrent episode, moderate F33.1 and Generalized anxiety disorder F41.1 [place] [address] [address] September, Major depressive disorder, recurrent episode, moderate F33.1 and Generalized anxiety disorder F41.1 [place] [address] [address] Aug, [place] [address] [address] Jul, [place] [address] [place] [id number] [place] [address] Jun, [facility] [address] [address] Apr, Generalized anxiety disorder F41.1 and Major depressive disorder, recurrent, mild F33.0 [facility] [address] [place] [id number] [place] [address] Apr, Generalized anxiety disorder F41.1 and Major depressive disorder, recurrent, mild F33.0 [place] [address] [place] [id number] [place] [address] Apr, Encounter for removal of skin lesion L98.9 [place] [address] [place] [id number] [place] [address] Apr, [place] [address] [place] [id number] [place] [address] Apr, Encounter for immunization Z23 [facility] [address] [place] [id number] [place] [address] Apr, Generalized anxiety disorder F41.1 [place] [address] [place] [id number] [place] [address] 30 Mar, 2016 Generalized anxiety disorder F41.1 and Major depressive disorder, recurrent, mild F33.0 [place] [address] [place] [id number] [place] [address] Mar, [facility] [address] [place] [id number] [place] [address] Mar, Headache around the eyes R51 and Seizure-like activity R56.9 [place] [address] [place] [id number] [place] [address] 14 Mar, 2016 Generalized anxiety disorder F41.1 and Major depressive disorder, recurrent, mild F33.0 [facility] [address] [place] [id number] [place] [address] 08 Mar, 2016 Atrial ectopy I49.1 [place] [address] [address] Mar, Generalized anxiety disorder F41.1 and Major depressive disorder, recurrent, mild F33.0 [facility] [address] [place] [address] Mar, Major depressive disorder, recurrent, mild F33.0 and Generalized anxiety disorder F41.1 [facility] [address] [place] [id number] [place] [address] Feb, [facility] [address] [place] [id number] [place] [address] Feb, Major depressive disorder, recurrent episode, moderate F33.1 [facility] [address] [address] Feb, Major depressive disorder, recurrent, mild F33.0 [facility] [address] [place] [id number] [place] [address] Feb, [facility] [address] [place] [address] Feb, Major depressive disorder, recurrent episode, moderate F33.1 [facility] [address] [address] Jan, Unprotected sexual intercourse Z72.51 [facility] [address] [address] Jan, [facility] [address] [place] [id number] [place] [address] Jan, Major depressive disorder, recurrent episode, moderate F33.1 [facility] [address] [place] [id number] [place] [address] Dec, Major depressive disorder, recurrent episode, moderate F33.1 [facility] [address] [address] Dec, Major depressive disorder, recurrent episode, moderate F33.1 [place] [address] [place] [address] 16 Dec, 2015 Encounter for well woman exam Z01.419 ; Encounter for screening for malignant neoplasm of cervix Z12.4 ; Screening for STD sexually transmitted disease Z11.3 ; Encounter for preventive health examination Z00.00 and Encounter for oral contraception initial prescription Z30.011 [place] [id number] [place] [address] Dec, [place] [address] [address] Dec, Primary insomnia F51.01 ; Irregular menses N92.6 and Morbid (severe) obesity due to excess calories E66.01 [place] [address] [place] [id number] [place] [address] Dec, Major depressive disorder, recurrent episode, moderate F33.[address] [address] Dec, Major depressive disorder, recurrent episode, moderate F33.1 [place] [address] [place] [id number] [place] [address] Dec, [place] [address] [place] [id number] [place] [address] Nov, Morbid (severe) obesity due to excess calories E66.01 ; Excessive daytime sleepiness G47.19 ; Pelvic pain R10.2 and Irregular menses N92.6 [place] [address] [place] [id number] [place] [address] Oct, Routine health maintenance Z00.00 ; Family history of diabetes mellitus Z83.3 ; History of thyroid disease Z86.39 ; Body mass index (BMI) of 45.0-49.9 in adult Z68.42 ; Morbid (severe) obesity due to excess calories E66.01 ; Atrial ectopy I49.1 and History of seizures [facility]87.898 [facility] [place] [address] [place] [address] Nov, Dental examination V72.2 IMMUNIZATIONS No Known Immunizations SOCIAL HISTORY Never Assessed REASON FOR VISIT pt c/o extreme fatigue, lower abdominal pain and frequent urination- OLGA Mary PLAN OF CARE Activity Details Follow Up 3 Months Reason: Pending Test CBC W/ AUTO DIFF (OUTSIDE LAB) Pending Test TSH/FREE T4 (OUTSIDE LAB) VITAL SIGNS Height 67 in 2018-04-19 Weight 278.7 lbs 2018-04-19 Temperature 99.0 degrees Fahrenheit 2018-04-19 Heart Rate 100 bpm 2018-04-19 Respiratory Rate 20 2018-04-19 BMI 43.65 kg/m2 2018-04-19 Blood pressure systolic 122 mmHg 2018-04-19 Blood pressure diastolic 64 mmHg 2018-04-19 MEDICATIONS Medication Instructions Dosage Frequency Start Date End Date Duration Status Mirena (52 MG) 20 MCG/24HR as directed Nov, Active Gabapentin 300 MG Orally Once a day 1 capsule before bedtime 24h Active RESULTS Name Result Date Reference Range TEST, URINE (IN HOUSE) 2018-04-19 RESULTS negative Lot # [id number] Control + Exp date 10/19/2019 UA LONG DIP (IN HOUSE) 2018-04-19 Lot # [id number] Exp date 02/17/2019 Clarity clear Color yellow Odor no GLU neg MARIANNE neg KET neg SG 1.020 BLO neg pH 7.0 Protein neg URO 0.2 NIT neg NIXON neg Lot # Exp date PROCEDURES Procedure Date Ordered Result Body Site URINALYSIS, AUTO, W/O SCOPE Apr 19, 2018 URINE TEST Apr 19, 2018 INSTRUCTIONS MEDICATIONS ADMINISTERED No Known Medications [...]
--- OUTSIDE RECORDS SUMMARY | 2018-12-11 15:36 | XMS REPORT ---
Author Author ADELE MARTINEZ [facility] Address [address] [place] [address] Care Team Providers Care Survey Party Chief Name Role Phone ADELE MARTINEZ Unavailable PROBLEMS Type Condition ICD9-CM Code LCM48-LY Code Onset Dates Condition Status SNOMED Code Problem Abnormal TSH R79.89 Active 658016100 Problem Atrial ectopy I49.1 Active 062061907 Problem Mixed hyperlipidemia E78.2 Active 660051330 Problem Bilateral carpal tunnel syndrome G56.03 Active 65876008 Problem Paresthesia of left arm and leg R20.2 Active 15605368 Problem Primary insomnia F51.01 Active 1655220 Problem Major depressive disorder, recurrent episode, moderate F33.1 Active 185458614 Problem Hypothyroidism (acquired) E03.9 Active 936250291 Problem Generalized anxiety disorder F41.1 Active 77463505 ALLERGIES No Information ENCOUNTERS Encounter Location Date Diagnosis [place] [id number] [place] [address] Apr, [place] [address] [place] [id number] [place] [address] Mar, Major depressive disorder, recurrent episode, moderate F33.1 and Generalized anxiety disorder F41.1 [place] [id number] [place] [address] Mar, Major depressive disorder, recurrent episode, moderate F33.1 and Generalized anxiety disorder F41.1 [place] [address] [place] [id number] [place] [address] 04 Feb, 2018 [place] [id number] [place] [address] Jan, Bilateral carpal tunnel syndrome G56.03 and BMI 40.0-44.9, adult Z68.41 [place] [address] [place] [id number] [place] [address] Dec, [place] [address] [address] Dec, Abnormal TSH R79.89 [place] [address] [place] [id number] [place] [address] Dec, Hypothyroidism (acquired) E03.9 ; BMI 40.0-44.9, adult Z68.41 ; Mixed hyperlipidemia E78.2 ; Paresthesia of left arm and leg R20.2 ; Atrial ectopy I49.1 and Primary insomnia F51.01 [place] [address] [address] Nov, [place] [address] [address] Jun, [place] [address] [address] Jun, [place] [address] [place] [id number] [place] [address] Apr, [place] [address] [address] Apr, Acute non-recurrent frontal sinusitis J01.10 and Right medial knee pain M25.561 [place] [address] [place] [id number] [place] [address] Feb, [place] [address] [place] [id number] [place] [address] Dec, Major depressive disorder, recurrent episode, moderate F33.1 and Generalized anxiety disorder F41.1 [place] [address] [address] Dec, Major depressive disorder, recurrent episode, moderate F33.1 and Generalized anxiety disorder F41.1 [place] [address] [place] [id number] [place] [address] Nov, Major depressive disorder, recurrent episode, moderate F33.1 and Generalized anxiety disorder F41.1 [facility] [address] [place] [id number] [place] [address] Nov, Major depressive disorder, recurrent episode, moderate F33.1 and Generalized anxiety disorder F41.1 [facility] [address] [place] [id number] [place] [address] Oct, Peripheral edema R60.9 ; Morbid (severe) obesity due to excess calories E66.01 and Leg cramps R25.2 [facility] [address] [place] [id number] [place] [address] Oct, Major depressive disorder, recurrent episode, moderate F33.1 and Generalized anxiety disorder F41.1 [facility] [address] [place] [id number] [place] [address] September, Major depressive disorder, recurrent episode, moderate F33.1 and Generalized anxiety disorder F41.1 [facility] [address] [place] [id number] [place] [address] Aug, [facility] [address] [place] [id number] [place] [address] Jul, [facility] [id number] [place] [address] Jun, [facility] [address] [place] [id number] [place] [address] Apr, Generalized anxiety disorder F41.1 and Major depressive disorder, recurrent, mild F33.0 [facility] [address] [place] [address] Apr, Generalized anxiety disorder F41.1 and Major depressive disorder, recurrent, mild F33.0 [facility] [id number] [place] [address] 13 Apr, 2016 Encounter for removal of skin lesion L98.9 [facility] [address] [place] [address] Apr, [facility] [address] [address] Apr, Encounter for immunization Z23 [facility] [address] [address] Apr, Generalized anxiety disorder F41.1 [facility] [address] [address] Mar, Generalized anxiety disorder F41.1 and Major depressive disorder, recurrent, mild F33.0 [place] [address] [address] Mar, [place] [address] [address] Mar, Headache around the eyes R51 and Seizure-like activity R56.9 [place] [address] [address] Mar, Generalized anxiety disorder F41.1 and Major depressive disorder, recurrent, mild F33.0 [place] [address] [address] Mar, Atrial ectopy I49.1 [facility] [address] [place] [id number] [place] [address] Mar, Generalized anxiety disorder F41.1 and Major depressive disorder, recurrent, mild F33.0 [facility] [address] [place] [id number] [place] [address] Mar, Major depressive disorder, recurrent, mild F33.0 and Generalized anxiety disorder F41.1 [facility] [address] [place] [id number] [place] [address] Feb, [facility] [address] [place] [id number] [place] [address] Feb, Major depressive disorder, recurrent episode, moderate F33.1 [facility] [address] [address] Feb, Major depressive disorder, recurrent, mild F33.0 [facility] [address] [place] [id number] [place] [address] Feb, [facility] [address] [place] [id number] [place] [address] Feb, Major depressive disorder, recurrent episode, moderate F33.1 [facility] [address] [place] [id number] [place] [address] Jan, Unprotected sexual intercourse Z72.51 [place] [address] [place] [id number] [place] [address] Jan, [place] [address] [place] [id number] [place] [address] Jan, Major depressive disorder, recurrent episode, moderate F33.1 [place] [address] [place] [id number] [place] [address] Dec, Major depressive disorder, recurrent episode, moderate F33.1 [place] [id number] [place] [address] Dec, Major depressive disorder, recurrent episode, moderate F33.1 [place] [id number] [place] [address] Dec, Encounter for well woman exam Z01.419 ; Encounter for screening for malignant neoplasm of cervix Z12.4 ; Screening for STD sexually transmitted disease Z11.3 ; Encounter for preventive health examination Z00.00 and Encounter for oral contraception initial prescription Z30.011 [place] [address] [place] [address] Dec, [place] [address] [place] [id number] [place] [address] Dec, Primary insomnia F51.01 ; Irregular menses N92.6 and Morbid (severe) obesity due to excess calories E66.01 [place] [address] [address] Dec, Major depressive disorder, recurrent episode, moderate F33.1 [place] [id number] [place] [address] Dec, Major depressive disorder, recurrent episode, moderate F33.1 [place] [address] [place] [id number] [address] Dec, [place] [address] [place] [address] Nov, Morbid (severe) obesity due to excess calories E66.01 ; Excessive daytime sleepiness G47.19 ; Pelvic pain R10.2 and Irregular menses N92.6 [address] [address] Oct, Routine health maintenance Z00.00 ; Family history of diabetes mellitus Z83.3 ; History of thyroid disease Z86.39 ; Body mass index (BMI) of 45.0-49.9 in adult Z68.42 ; Morbid (severe) obesity due to excess calories E66.01 ; Atrial ectopy I49.1 and History of seizures Z87.898 [facility] [address] [place] [address] Nov, Dental examination V72.2 IMMUNIZATIONS No Known Immunizations SOCIAL HISTORY Never Assessed REASON FOR VISIT f/u PLAN OF CARE Activity Details Follow Up tomorrow Reason: F/U VITAL SIGNS MEDICATIONS Unknown Medications RESULTS No Results PROCEDURES Procedure Date Ordered Result Body Site Psychotherapy, patient &/family, 45 minutes, established patient Mar 28, 2018 INSTRUCTIONS MEDICATIONS ADMINISTERED No Known Medications [...]
--- OUTSIDE RECORDS SUMMARY | 2018-12-11 15:36 | XMS REPORT ---
Author Author ALBERTINASUKHDEEPANTHONY Organization [facility] Address [address] [place] [address] Care Team Providers Care Autocad Designer Name Role Phone ANTHONY ENG Unavailable PROBLEMS Type Condition ICD9-CM Code YEX15-VU Code Onset Dates Condition Status SNOMED Code Problem Abnormal TSH R79.89 Active 504645685 Problem Atrial ectopy I49.1 Active 422623070 Problem Mixed hyperlipidemia E78.2 Active 754681498 Problem Bilateral carpal tunnel syndrome G56.03 Active 92472823 Problem Paresthesia of left arm and leg R20.2 Active 78563795 Problem Primary insomnia F51.01 Active 3264091 Problem Major depressive disorder, recurrent episode, moderate F33.1 Active 211341583 Problem Hypothyroidism (acquired) E03.9 Active 529620401 Problem Generalized anxiety disorder F41.1 Active 11764972 ALLERGIES No Information ENCOUNTERS Encounter Location Date Diagnosis [place] [address] [address] Jan, Bilateral carpal tunnel syndrome G56.03 and BMI 40.0-44.9, adult Z68.41 [place] [address] [place] [id number] [place] [address] Dec, [place] [address] [address] Dec, Abnormal TSH R79.89 [place] [address] [address] Dec, Hypothyroidism (acquired) E03.9 ; BMI 40.0-44.9, adult Z68.41 ; Mixed hyperlipidemia E78.2 ; Paresthesia of left arm and leg R20.2 ; Atrial ectopy I49.1 and Primary insomnia F51.01 [place] [address] [place] [address] Nov, [facility] [address] [address] Jun, [facility] [address] [place] [id number] [place] [address] Jun, [facility] [address] [place] [address] Apr, [facility] [address] [place] [id number] [place] [address] Apr, Acute non-recurrent frontal sinusitis J01.10 and Right medial knee pain M25.561 [place] [address] [place] [id number] [place] [address] Feb, [place] [address] [place] [address] Dec, Major depressive disorder, recurrent episode, moderate F33.1 and Generalized anxiety disorder F41.1 [place] [address] [place] [address] Dec, Major depressive disorder, recurrent episode, moderate F33.1 and Generalized anxiety disorder F41.1 [place] [address] [address] Nov, Major depressive disorder, recurrent episode, moderate F33.1 and Generalized anxiety disorder F41.1 [place] [address] [address] Nov, Major depressive disorder, recurrent episode, moderate F33.1 and Generalized anxiety disorder F41.1 [place] [address] [place] [id number] [place] [address] Oct, Peripheral edema R60.9 ; Morbid (severe) obesity due to excess calories E66.01 and Leg cramps R25.2 [place] [address] [place] [address] Oct, Major depressive disorder, recurrent episode, moderate F33.1 and Generalized anxiety disorder F41.1 [facility] [address] [place] [address] September, Major depressive disorder, recurrent episode, moderate F33.1 and Generalized anxiety disorder F41.1 [facility] [address] [place] [id number] [place] [address] Aug, [facility] [address] [place] [id number] [place] [address] Jul, [facility] [address] [place] [id number] [place] [address] Jun, [facility] [address] [place] [id number] [place] [address] Apr, Generalized anxiety disorder F41.1 and Major depressive disorder, recurrent, mild F33.0 [facility] [address] [place] [id number] [place] [address] Apr, Generalized anxiety disorder F41.1 and Major depressive disorder, recurrent, mild F33.0 [facility] [address] [place] [id number] [place] [address] Apr, Encounter for removal of skin lesion L98.9 [facility] [address] [place] [id number] [place] [address] Apr, [facility] [address] [place] [id number] [place] [address] Apr, Encounter for immunization Z23 [facility] [address] [place] [address] Apr, Generalized anxiety disorder F41.1 [facility] [address] [place] [id number] [place] [address] Mar, Generalized anxiety disorder F41.1 and Major depressive disorder, recurrent, mild F33.0 [facility] [address] [place] [id number] [place] [address] Mar, [facility] [address] [place] [address] Mar, Headache around the eyes R51 and Seizure-like activity R56.9 [facility] [address] [place] [id number] [place] [address] 14 Mar, 2016 Generalized anxiety disorder F41.1 and Major depressive disorder, recurrent, mild F33.0 [facility] [address] [place] [id number] [place] [address] Mar, Atrial ectopy I49.1 [facility] [address] [place] [id number] [place] [address] Mar, Generalized anxiety disorder F41.1 and Major depressive disorder, recurrent, mild F33.0 [facility] [address] [place] [id number] [place] [address] Mar, Major depressive disorder, recurrent, mild F33.0 and Generalized anxiety disorder F41.1 [facility] [address] [place] [id number] [place] [address] Feb, [facility] [address] [place] [id number] [place] [address] Feb, Major depressive disorder, recurrent episode, moderate F33.1 [facility] [address] [place] [id number] [place] [address] Feb, Major depressive disorder, recurrent, mild F33.0 [facility] [address] [place] [id number] [place] [address] Feb, [facility] [address] [place] [id number] [place] [address] Feb, Major depressive disorder, recurrent episode, moderate F33.1 [facility] [address] [place] [id number] [place] [address] Jan, Unprotected sexual intercourse Z72.51 [facility] [address] [place] [id number] [place] [address] Jan, [facility] [address] [place] [id number] [address] Jan, Major depressive disorder, recurrent episode, moderate F33.1 [facility] [address] [address] Dec, Major depressive disorder, recurrent episode, moderate F33.1 [place] [address], [place] [address] Dec, Major depressive disorder, recurrent episode, moderate F33.1 [place] [address] [address] Dec, Encounter for well woman exam Z01.419 ; Encounter for screening for malignant neoplasm of cervix Z12.4 ; Screening for STD sexually transmitted disease Z11.3 ; Encounter for preventive health examination Z00.00 and Encounter for oral contraception initial prescription Z30.011 [place] [address] [address] Dec, [place] [address] [place] [id number] [place] [address] Dec, Primary insomnia F51.01 ; Irregular menses N92.6 and Morbid (severe) obesity due to excess calories E66.01 [place] [address] [address] Dec, Major depressive disorder, recurrent episode, moderate F33.1 [place] [address], [place] [address] Dec, Major depressive disorder, recurrent episode, moderate F33.1 [place] [address], [place] [address] Dec, [place] [address] [place] [address] [address] Nov, Morbid (severe) obesity due to excess calories E66.01 ; Excessive daytime sleepiness G47.19 ; Pelvic pain R10.2 and Irregular menses N92.6 [facility] [address] [facility] [id number] [place] [address] 23 Oct, 2015 Routine health maintenance Z00.00 ; Family history of diabetes mellitus Z83.3 ; History of thyroid disease Z86.39 ; Body mass index (BMI) of 45.0-49.9 in adult Z68.42 ; Morbid (severe) obesity due to excess calories E66.01 ; Atrial ectopy I49.1 and [facility] of [facility] Z87.898 [facility] [address] [place] [address] 14 Nov, 2014 Dental examination V72.2 IMMUNIZATIONS No Known Immunizations [...]
--- OUTSIDE RECORDS SUMMARY | 2018-12-11 15:36 | XMS REPORT ---
Author Author DAGMAR AUSTIN [facility] Address [address] [place] [address] Care Team Providers Care Qualification Engineer Name Role Phone DAGMAR AUSTIN Unavailable PROBLEMS Type Condition ICD9-CM Code [id number] Code Onset Dates Condition Status SNOMED Code Problem Abnormal TSH R79.89 Active 232582378 Problem Atrial ectopy I49.1 Active 091262784 Problem Mixed hyperlipidemia E78.2 Active 228334844 Problem Bilateral carpal tunnel syndrome G56.03 Active 98066299 Problem Paresthesia of left arm and leg R20.2 Active 82312507 Problem Primary insomnia F51.01 Active 8082204 Problem Major depressive disorder, recurrent episode, moderate F33.1 Active 255827854 Problem Hypothyroidism (acquired) E03.9 Active 117226264 Problem Generalized anxiety disorder F41.1 Active 96142016 ALLERGIES Substance Reaction Event Type Date Status Zoloft seizure Drug Allergy Jan, Active Tamiflu seizure Drug Allergy Jan, Active Citalopram Hydrobromide itching Drug Allergy Jan, Active BuSpar Unknown Drug Allergy Jan, Active Nickel Unknown Non Drug Allergy Jan, Active Red Dye Unknown Non Drug Allergy Jan, Active Latex Unknown Non Drug Allergy Jan, Active ENCOUNTERS Encounter Location Date Diagnosis [facility] [id number], [place] [address] Feb, [facility] [address], [place] [address] Jan, Bilateral carpal tunnel syndrome G56.03 and BMI 40.0-44.9, adult Z68.41 [facility] [id number], [place] [address] Dec, [facility] [id number] [place] [address] Dec, Abnormal TSH R79.89 [facility] [id number] [place] [address] Dec, Hypothyroidism (acquired) E03.9 ; BMI 40.0-44.9, adult Z68.41 ; Mixed hyperlipidemia E78.2 ; Paresthesia of left arm and leg R20.2 ; Atrial ectopy I49.1 and Primary insomnia F51.01 [facility] [id number] [place] [address] Nov, [facility] [id number] [place] [address] Jun, [facility] [id number] [place] [address] Jun, [facility] [id number] [place] [address] Apr, [facility] [id number] [place] [address] Apr, Acute non-recurrent frontal sinusitis J01.10 and Right medial knee pain M25.561 [facility] [id number] [place] [address] Feb, [facility] [id number] [place] [address] Dec, Major depressive disorder, recurrent episode, moderate F33.1 and Generalized anxiety disorder F41.1 [facility] [id number] [place] [address] Dec, Major depressive disorder, recurrent episode, moderate F33.1 and Generalized anxiety disorder F41.1 [facility] [id number] [place] [address] Nov, Major depressive disorder, recurrent episode, moderate F33.1 and Generalized anxiety disorder F41.1 [facility] [id number] [place] [address] Nov, Major depressive disorder, recurrent episode, moderate F33.1 and Generalized anxiety disorder F41.1 [facility] [id number] [place] [address] Oct, Peripheral edema R60.9 ; Morbid (severe) obesity due to excess calories E66.01 and Leg cramps R25.2 [facility] [id number] [place] [address] Oct, Major depressive disorder, recurrent episode, moderate F33.1 and Generalized anxiety disorder F41.1 [facility] [address] [address] September, Major depressive disorder, recurrent episode, moderate F33.1 and Generalized anxiety disorder F41.1 [facility] [id number] [place] [address] Aug, [facility] [address] [address] Jul, [facility] [id number] [place] [address] Jun, [facility] [id number] [place] [address] Apr, Generalized anxiety disorder F41.1 and Major depressive disorder, recurrent, mild F33.0 [facility] [id number] [place] [address] Apr, Generalized anxiety disorder F41.1 and Major depressive disorder, recurrent, mild F33.0 [facility] [id number] [place] [address] Apr, Encounter for removal of skin lesion L98.9 [facility] [id number] [place] [address] Apr, [facility] [id number] [place] [address] Apr, Encounter for immunization Z23 [facility] [id number] [place] [address] Apr, Generalized anxiety disorder F41.1 [facility] [id number] [place] [address] Mar, Generalized anxiety disorder F41.1 and Major depressive disorder, recurrent, mild F33.0 [facility] [address] [address] Mar, [facility] [id number] [place] [address] Mar, Headache around the eyes R51 and Seizure-like activity R56.9 [facility] [id number] [place] [address] Mar, Generalized anxiety disorder F41.1 and Major depressive disorder, recurrent, mild F33.0 [facility] [id number] [place] [address] Mar, Atrial ectopy I49.1 [facility] [id number] [place] [address] Mar, Generalized anxiety disorder F41.1 and Major depressive disorder, recurrent, mild F33.0 [facility] [id number] [place] [address] Mar, Major depressive disorder, recurrent, mild F33.0 and Generalized anxiety disorder F41.1 [facility] [id number] [place] [address] Feb, [facility] [id number] [place] [address] Feb, Major depressive disorder, recurrent episode, moderate F33.1 [facility] [id number] [place] [address] Feb, Major depressive disorder, recurrent, mild F33.0 [facility] [id number] [address] Feb, [facility] [address], [place] [address] Feb, Major depressive disorder, recurrent episode, moderate F33.1 [facility] [address], [place] [address] 27 Jan, 2016 Unprotected sexual intercourse Z72.51 [facility] [address] [place] [address] Jan, [facility] [address] [place] [address] Jan, Major depressive disorder, recurrent episode, moderate F33.1 [facility] [address] [place] [address] Dec, Major depressive disorder, recurrent episode, moderate F33.1 [facility] [address], [place] [address] Dec, Major depressive disorder, recurrent episode, moderate F33.1 [facility] [address], [place] [address] 16 Dec, 2015 Encounter for well woman exam Z01.419 ; Encounter for screening for malignant neoplasm of cervix Z12.4 ; Screening for STD sexually transmitted disease Z11.3 ; Encounter for preventive health examination Z00.00 and Encounter for oral contraception initial prescription Z30.011 [facility] [address], [place] [address] Dec, [facility] [address] [place] [address] Dec, Primary insomnia F51.01 ; Irregular menses N92.6 and Morbid (severe) obesity due to excess calories E66.01 [facility] [address], [place] [address] Dec, Major depressive disorder, recurrent episode, moderate F33.1 [facility] [id number], [place] [address] Dec, Major depressive disorder, recurrent episode, moderate F33.1 [facility] [address] [place] [address] Dec, [facility] [address] [place] [address] Nov, Morbid (severe) obesity due to excess calories E66.01 ; Excessive daytime sleepiness G47.19 ; Pelvic pain R10.2 and Irregular menses N92.6 [facility] [address] [place] [address] Oct, Routine health maintenance Z00.00 ; Family history of diabetes mellitus Z83.3 ; History of thyroid disease Z86.39 ; Body mass index (BMI) of 45.0-49.9 in adult Z68.42 ; Morbid (severe) obesity due to excess calories E66.01 ; Atrial ectopy I49.1 and History of seizures Z87.898 [facility] [address] [place] [address] Nov, Dental examination V72.2 IMMUNIZATIONS No Known Immunizations SOCIAL HISTORY Never Assessed REASON FOR VISIT New provider visit--tcuppettRN, needing referral to surgeon for carpal tunnel re lease, -Sinus congestion and sinus pressure x 2 weeks PLAN OF CARE Activity Details Follow Up 3 months or as needed Reason: VITAL SIGNS Height 67 in 2018-02-07 Weight 273.4 lbs 2018-02-07 Temperature 98.0 degrees Fahrenheit 2018-02-07 Heart Rate 76 bpm 2018-02-07 Respiratory Rate 2018-02-07 BMI 42.82 kg/m2 2018-02-07 Blood pressure systolic 100 mmHg 2018-02-07 Blood pressure diastolic 64 mmHg 2018-02-07 MEDICATIONS Medication Instructions Dosage Frequency Start Date End Date Duration Status Gabapentin 300 MG Orally Once a day 1 capsule before bedtime 24h Active Naproxen 500 mg Orally every 12 hrs prn 1 tablet with food or milk as needed Jan, Mar, 30 days Active RESULTS No Results PROCEDURES No Known procedures [...]
--- OUTSIDE RECORDS SUMMARY | 2018-12-11 15:37 | XMS REPORT ---
Author Author ALBERTINA ANTHONY [facility] Address [address] [place] [address] Care Team Providers Care Generator Operator Straight Bevel Gear Name Role Phone ANTHONY ENG Unavailable PROBLEMS Type Condition ICD9-CM Code HXW99-RX Code Onset Dates Condition Status SNOMED Code Problem Mixed hyperlipidemia E78.2 Active 505321841 Problem Abnormal TSH R79.89 Active 634747664 Problem Hypothyroidism (acquired) E03.9 Active 279077120 Problem Paresthesia of left arm and leg R20.2 Active 34310249 Problem Major depressive disorder, recurrent episode, moderate F33.1 Active 713115670 Problem Atrial ectopy I49.1 Active 759806590 Problem Generalized anxiety disorder F41.1 Active 19149710 Problem Primary insomnia F51.01 Active 1449304 ALLERGIES Substance Reaction Event Type Date Status Zoloft seizure Drug Allergy Dec, Active Tamiflu seizure Drug Allergy Dec, Active Citalopram Hydrobromide itching Drug Allergy Dec, Active BuSpar Unknown Drug Allergy Dec, Active Nickel Unknown Non Drug Allergy Dec, Active Red Dye Unknown Non Drug Allergy Dec, Active Latex Unknown Non Drug Allergy Dec, Active ENCOUNTERS Encounter Location Date Diagnosis [facility] [address] [address] Jan, [facility] [id number] [address] Dec, [facility] [address] [place] [address] Dec, Abnormal TSH R79.89 [facility] [address] [address] Dec, Hypothyroidism (acquired) E03.9 ; BMI 40.0-44.9, adult Z68.41 ; Mixed hyperlipidemia E78.2 ; Paresthesia of left arm and leg R20.2 ; Atrial ectopy I49.1 and Primary insomnia F51.01 [facility] [id number] [place] [address] Nov, [facility] [id number] [place] [address] Jun, [facility] [id number] [place] [address] Jun, [facility] [id number] [place] [address] Apr, [facility] [id number] [place] [address] Apr, Acute non-recurrent frontal sinusitis J01.10 and Right medial knee pain M25.561 [facility] [id number] [place] [address] Feb, [facility] [id number] [place] [address] Dec, Major depressive disorder, recurrent episode, moderate F33.1 and Generalized anxiety disorder F41.1 [facility] [id number] [place] [address] Dec, Major depressive disorder, recurrent episode, moderate F33.1 and Generalized anxiety disorder F41.1 [facility] [id number] [place] [address] Nov, Major depressive disorder, recurrent episode, moderate F33.1 and Generalized anxiety disorder F41.1 [facility] [id number] [place] [address] Nov, Major depressive disorder, recurrent episode, moderate F33.1 and Generalized anxiety disorder F41.1 [facility] [id number] [place] [address] Oct, Peripheral edema R60.9 ; Morbid (severe) obesity due to excess calories E66.01 and Leg cramps R25.2 [facility] [id number] [place] [address] Oct, Major depressive disorder, recurrent episode, moderate F33.1 and Generalized anxiety disorder F41.1 [facility] [id number] [place] [address] September, Major depressive disorder, recurrent episode, moderate F33.1 and Generalized anxiety disorder F41.1 [facility] [id number] [place] [address] Aug, [facility] [address] [address] Jul, [facility] [id number] [place] [address] Jun, [facility] [id number] [place] [address] Apr, Generalized anxiety disorder F41.1 and Major depressive disorder, recurrent, mild F33.0 [facility] [id number] [place] [address] Apr, Generalized anxiety disorder F41.1 and Major depressive disorder, recurrent, mild F33.0 [facility] [id number] [place] [address] Apr, Encounter for removal of skin lesion L98.9 [facility] [id number] [place] [address] Apr, [facility] [id number] [place] [address] Apr, Encounter for immunization Z23 [facility] [id number] [place] [address] Apr, Generalized anxiety disorder F41.1 [facility] [id number] [place] [address] Mar, Generalized anxiety disorder F41.1 and Major depressive disorder, recurrent, mild F33.0 [facility] [id number] [place] [address] Mar, [facility] [id number] [place] [address] Mar, Headache around the eyes R51 and Seizure-like activity R56.9 [facility] [id number] [place] [address] Mar, Generalized anxiety disorder F41.1 and Major depressive disorder, recurrent, mild F33.0 [facility] [id number] [place] [address] Mar, Atrial ectopy I49.1 [facility] [id number] [place] [address] Mar, Generalized anxiety disorder F41.1 and Major depressive disorder, recurrent, mild F33.0 [facility] [id number] [place] [address] Mar, Major depressive disorder, recurrent, mild F33.0 and Generalized anxiety disorder F41.1 [facility] [id number] [place] [address] Feb, [facility] [id number] [place] [address] Feb, Major depressive disorder, recurrent episode, moderate F33.1 [facility] [address] [place] [address] Feb, Major depressive disorder, recurrent, mild F33.0 [facility] [id number] [place] [address] Feb, [facility] [id number] [place] [address] Feb, Major depressive disorder, recurrent episode, moderate F33.1 [facility] [address] [address] Jan, Unprotected sexual intercourse Z72.51 [facility] [id number] [place] [address] Jan, [facility] [id number] [place] [address] Jan, Major depressive disorder, recurrent episode, moderate F33.1 [facility] [id number] [place] [address] Dec, Major depressive disorder, recurrent episode, moderate F33.1 [facility] [id number] [place] [address] Dec, Major depressive disorder, recurrent episode, moderate F33.1 [facility] [id number] [place] [address] Dec, Encounter for well woman exam Z01.419 ; Encounter for screening for malignant neoplasm of cervix Z12.4 ; Screening for STD sexually transmitted disease Z11.3 ; Encounter for preventive health examination Z00.00 and Encounter for oral contraception initial prescription Z30.011 [facility] [id number] [place] [address] Dec, [facility] [address] [place] [address] Dec, Primary insomnia F51.01 ; Irregular menses N92.6 and Morbid (severe) obesity due to excess calories E66.01 [facility] [address] [address] Dec, Major depressive disorder, recurrent episode, moderate F33.1 [facility] [id number] [place] [address] Dec, Major depressive disorder, recurrent episode, moderate F33.1 [facility] [id number] [place] [address] Dec, [facility] [id number] [address] 12 Nov, 2015 Morbid (severe) obesity due to excess calories E66.01 ; Excessive daytime sleepiness G47.19 ; Pelvic pain R10.2 and Irregular menses N92.6 [facility] [address] [facility] [id number] [place] [address] 23 Oct, 2015 Routine health maintenance Z00.00 ; Family history of diabetes mellitus Z83.3 ; History of thyroid disease Z86.39 ; Body mass index (BMI) of 45.0-49.9 in adult Z68.42 ; Morbid (severe) obesity due to excess calories E66.01 ; Atrial ectopy I49.1 and History of seizures Z87.898 [facility] [address] [place] [address] 14 Nov, 2014 Dental examination V72.2 IMMUNIZATIONS No Known Immunizations SOCIAL HISTORY Never Assessed REASON FOR VISIT Numbness(left arm and leg)-Tristen Pt states the left sided numbness started about a week and a half ago. PLAN OF CARE Activity Details Follow Up 3 Months, prn Reason:chm VITAL SIGNS Height 67 in 2017-12-20 Weight 282.3 lbs 2017-12-20 Temperature 97.5 degrees Fahrenheit 2017-12-20 Heart Rate 70 bpm 2017-12-20 Respiratory Rate 18 2017-12-20 BMI 44.21 kg/m2 2017-12-20 Blood pressure systolic 110 mmHg 2017-12-20 Blood pressure diastolic 72 mmHg 2017-12-20 MEDICATIONS Medication Instructions Dosage Frequency Start Date End Date Duration Status Gabapentin 300 MG Orally Once a day 1 capsule before bedtime 24h 30 days Active RESULTS No Results PROCEDURES Procedure Date Ordered Result Body Site LAB NOT BILLED BY [facility] Dec 20, 2017 VENIPUNCT, ROUTINE* Dec 20, 2017 INSTRUCTIONS MEDICATIONS ADMINISTERED No Known Medications MEDICAL [...] time Surgical History colonoscopy Surgical History EGD Hospitalization History Seizure--[facility] 05/2015 Hospitalization History Reaction to Buspar 02/2016
--- OUTSIDE RECORDS SUMMARY | 2018-12-11 15:37 | XMS REPORT ---
Author Author ENGANTHONY Roland Organization [facility] Address [address] [place] [address] Care Team Providers Care Per Diem Registered Nurse Name Role Phone NATHONY ENG Unavailable PROBLEMS Type Condition ICD9-CM Code BCL17-XJ Code Onset Dates Condition Status SNOMED Code Problem Mixed hyperlipidemia E78.2 Active 059260238 Problem Abnormal TSH R79.89 Active 255029771 Problem Hypothyroidism (acquired) E03.9 Active 124833185 Problem Paresthesia of left arm and leg R20.2 Active 09292053 Problem Major depressive disorder, recurrent episode, moderate F33.1 Active 735177758 Problem Atrial ectopy I49.1 Active 815318064 Problem Generalized anxiety disorder F41.1 Active 98034074 Problem Primary insomnia F51.01 Active 1304518 ALLERGIES No Information ENCOUNTERS Encounter Location Date Diagnosis [place] [id number] [place] [phone] Jan, [place] [id number] [place] [address] Dec, [place] [id number] [place] [address] Dec, Abnormal TSH R79.89 [place] [address] [address] Dec, Hypothyroidism (acquired) E03.9 ; BMI 40.0-44.9, adult Z68.41 ; Mixed hyperlipidemia E78.2 ; Paresthesia of left arm and leg R20.2 ; Atrial ectopy I49.1 and Primary insomnia F51.01 [place] [id number] [place] [address] Nov, [place] [address] [address] Jun, [facility] [address] [address] Jun, [facility] [address] [place] [address] Apr, [place] [address] [place] [address] Apr, Acute non-recurrent frontal sinusitis J01.10 and Right medial knee pain M25.561 [place] [address] [place] [address] Feb, [place] [address] [place] [address] Dec, Major depressive disorder, recurrent episode, moderate F33.1 and Generalized anxiety disorder F41.1 [place] [address] [place] [address] Dec, Major depressive disorder, recurrent episode, moderate F33.1 and Generalized anxiety disorder F41.1 [place] [address] [place] [address] Nov, Major depressive disorder, recurrent episode, moderate F33.1 and Generalized anxiety disorder F41.1 [place] [address] [place] [address] Nov, Major depressive disorder, recurrent episode, moderate F33.1 and Generalized anxiety disorder F41.1 [place] [address], [place] [address] Oct, Peripheral edema R60.9 ; Morbid (severe) obesity due to excess calories E66.01 and Leg cramps R25.2 [place] [address], [place] [address] Oct, Major depressive disorder, recurrent episode, moderate F33.1 and Generalized anxiety disorder F41.1 [place] [id number] [place] [address] September, Major depressive disorder, recurrent episode, moderate F33.1 and Generalized anxiety disorder F41.1 [facility] [id number] [place] [address] Aug, [facility] [id number] [place] [address] Jul, [facility] [id number] [place] [address] Jun, [facility] [id number] [place] [address] Apr, Generalized anxiety disorder F41.1 and Major depressive disorder, recurrent, mild F33.0 [facility] [id number] [place] [address] Apr, Generalized anxiety disorder F41.1 and Major depressive disorder, recurrent, mild F33.0 [facility] [id number] [place] [address] Apr, Encounter for removal of skin lesion L98.9 [place] [id number] [place] [address] Apr, [facility] [address] [place] [address] Apr, Encounter for immunization Z23 [facility] [id number] [place] [address] Apr, Generalized anxiety disorder F41.1 [facility] [address] [place] [address] Mar, Generalized anxiety disorder F41.1 and Major depressive disorder, recurrent, mild F33.0 [facility] [address] [place] [address] Mar, [facility] [address] [place] [address] 18 Nov, 2016 Headache around the eyes R51 and Seizure-like activity R56.9 [facility] [id number] [place] [address] 14 Mar, 2016 Generalized anxiety disorder F41.1 and Major depressive disorder, recurrent, mild F33.0 [facility] [id number] [place] [address] 08 Mar, 2016 Atrial ectopy I49.1 [facility] [id number] [place] [address] 08 Mar, 2016 Generalized anxiety disorder F41.1 and Major depressive disorder, recurrent, mild F33.0 [place] [id number] [place] [address] Mar, Major depressive disorder, recurrent, mild F33.0 and Generalized anxiety disorder F41.1 [place] [id number] [place] [address] Feb, [facility] [id number] [place] [address] Feb, Major depressive disorder, recurrent episode, moderate F33.1 [facility] [id number] [place] [address] Feb, Major depressive disorder, recurrent, mild F33.0 [facility] [id number] [place] [address] Feb, [facility] [id number] [place] [address] Feb, Major depressive disorder, recurrent episode, moderate F33.1 [facility] [id number] [place] [address] Jan, Unprotected sexual intercourse Z72.51 [facility] [id number] [place] [address] Jan, [facility] [id number] [place] [address] Jan, Major depressive disorder, recurrent episode, moderate F33.1 [place] [address] [address] Dec, Major depressive disorder, recurrent episode, moderate F33.1 [place] [address] [place] [address] Dec, Major depressive disorder, recurrent episode, moderate F33.1 [place] [id number] [place] [address] Dec, Encounter for well woman exam Z01.419 ; Encounter for screening for malignant neoplasm of cervix Z12.4 ; Screening for STD sexually transmitted disease Z11.3 ; Encounter for preventive health examination Z00.00 and Encounter for oral contraception initial prescription Z30.011 [place] [id number] [place] [address] Dec, [place] [id number] [place] [address] Dec, Primary insomnia F51.01 ; Irregular menses N92.6 and Morbid (severe) obesity due to excess calories E66.01 [place] [id number] [place] [address] Dec, Major depressive disorder, recurrent episode, moderate F33.1 [place] [address] [place] [address] Dec, Major depressive disorder, recurrent episode, moderate F33.1 [place] [id number] [place] [address] Dec, [place] [id number] [place] [address] Nov, Morbid (severe) obesity due to excess calories E66.01 ; Excessive daytime sleepiness G47.19 ; Pelvic pain R10.2 and Irregular menses N92.6 [place] [id number] [place] [address] Oct, Routine health maintenance Z00.00 ; Family history of diabetes mellitus Z83.3 ; History of thyroid disease Z86.39 ; Body mass index (BMI) of 45.0-49.9 in adult Z68.42 ; Morbid (severe) obesity due to excess calories E66.01 ; Atrial ectopy I49.1 and History of seizures Z87.898 [facility] [address] [place] [address] Nov, Dental examination V72.2 IMMUNIZATIONS No Known Immunizations SOCIAL HISTORY Never Assessed REASON FOR VISIT Cardiology Appt PLAN OF CARE VITAL SIGNS MEDICATIONS Unknown [...]
--- OUTSIDE RECORDS SUMMARY | 2018-12-11 15:37 | XMS REPORT ---
Author Author ENGANTHONY Organization [facility] Address [address] [place] [address] Care Team Providers Care Qual Research Manager Name Role Phone ANTHONY ENG Unavailable PROBLEMS Type Condition ICD9-CM Code CKI48-GY Code Onset Dates Condition Status SNOMED Code Problem Mixed hyperlipidemia E78.2 Active 782993908 Problem Abnormal TSH R79.89 Active 614359337 Problem Hypothyroidism (acquired) E03.9 Active 705904439 Problem Paresthesia of left arm and leg R20.2 Active 74853480 Problem Major depressive disorder, recurrent episode, moderate F33.1 Active 965646168 Problem Atrial ectopy I49.1 Active 593536820 Problem Generalized anxiety disorder F41.1 Active 14864451 Problem Primary insomnia F51.01 Active 3588859 ALLERGIES No Information ENCOUNTERS Encounter Location Date Diagnosis [place] [address] [place] [id number] [place] [address] Jan, [place] [id number] [place] [address] Dec, [place] [address] [place] [id number] [place] [address] Dec, Abnormal TSH R79.89 [place] [address] [address] Dec, Hypothyroidism (acquired) E03.9 ; BMI 40.0-44.9, adult Z68.41 ; Mixed hyperlipidemia E78.2 ; Paresthesia of left arm and leg R20.2 ; Atrial ectopy I49.1 and Primary insomnia F51.01 [place] [address] [place] [id number] [place] [address] Nov, [place] [address] [address] Jun, [facility] [address], [place] [address] Jun, [facility] [address] [place] [address] Apr, [place] [address] [place] [address] Apr, Acute non-recurrent frontal sinusitis J01.10 and Right medial knee pain M25.561 [place] [address] [place] [address] Feb, [place] [address] [place] [address] Dec, Major depressive disorder, recurrent episode, moderate F33.1 and Generalized anxiety disorder F41.1 [place] [address] [place] [address] Dec, Major depressive disorder, recurrent episode, moderate F33.1 and Generalized anxiety disorder F41.1 [place] [address] [place] [address] Nov, Major depressive disorder, recurrent episode, moderate F33.1 and Generalized anxiety disorder F41.1 [place] [address] [place] [address] Nov, Major depressive disorder, recurrent episode, moderate F33.1 and Generalized anxiety disorder F41.1 [place] [address], [place] [address] Oct, Peripheral edema R60.9 ; Morbid (severe) obesity due to excess calories E66.01 and Leg cramps R25.2 [place] [address], [place] [address] Oct, Major depressive disorder, recurrent episode, moderate F33.1 and Generalized anxiety disorder F41.1 [place] [address] [place] [id number] [place] [address] September, Major depressive disorder, recurrent episode, moderate F33.1 and Generalized anxiety disorder F41.1 [facility] [id number] [place] [address] Aug, [facility] [id number] [place] [address] Jul, [facility] [id number] [place] [address] Jun, [facility] [id number] [place] [address] Apr, Generalized anxiety disorder F41.1 and Major depressive disorder, recurrent, mild F33.0 [facility] [id number] [place] [address] Apr, Generalized anxiety disorder F41.1 and Major depressive disorder, recurrent, mild F33.0 [facility] [id number] [place] [address] Apr, Encounter for removal of skin lesion L98.9 [place] [id number] [place] [address] Apr, [facility] [address] [place] [address] Apr, Encounter for immunization Z23 [facility] [id number] [place] [address] Apr, Generalized anxiety disorder F41.1 [facility] [address] [place] [address] Mar, Generalized anxiety disorder F41.1 and Major depressive disorder, recurrent, mild F33.0 [facility] [id number] [place] [address] Mar, [facility] [address] [place] [address] 18 Nov, 2016 Headache around the eyes R51 and Seizure-like activity R56.9 [facility] [id number] [place] [address] 14 Mar, 2016 Generalized anxiety disorder F41.1 and Major depressive disorder, recurrent, mild F33.0 [facility] [id number] [place] [address] 08 Mar, 2016 Atrial ectopy I49.1 [facility] [id number] [place] [address] 08 Mar, 2016 Generalized anxiety disorder F41.1 and Major depressive disorder, recurrent, mild F33.0 [place] [id number] [place] [address] Mar, Major depressive disorder, recurrent, mild F33.0 and Generalized anxiety disorder F41.1 [place] [id number] [place] [address] Feb, [facility] [id number] [place] [address] Feb, Major depressive disorder, recurrent episode, moderate F33.1 [facility] [id number] [place] [address] Feb, Major depressive disorder, recurrent, mild F33.0 [facility] [id number] [place] [address] Feb, [facility] [id number] [place] [address] Feb, Major depressive disorder, recurrent episode, moderate F33.1 [facility] [id number] [place] [address] Jan, Unprotected sexual intercourse Z72.51 [facility] [id number] [place] [address] Jan, [facility] [id number] [place] [address] Jan, Major depressive disorder, recurrent episode, moderate F33.1 [place] [address], [place] [address] Dec, Major depressive disorder, recurrent episode, moderate F33.1 [place] [address] [place] [address] Dec, Major depressive disorder, recurrent episode, moderate F33.1 [place] [id number] [place] [address] Dec, Encounter for well woman exam Z01.419 ; Encounter for screening for malignant neoplasm of cervix Z12.4 ; Screening for STD sexually transmitted disease Z11.3 ; Encounter for preventive health examination Z00.00 and Encounter for oral contraception initial prescription Z30.011 [place] [address] [id number] [place] [address] Dec, [place] [address] [id number] [place] [address] Dec, Primary insomnia F51.01 ; Irregular menses N92.6 and Morbid (severe) obesity due to excess calories E66.01 [place] [id number] [place] [address] Dec, Major depressive disorder, recurrent episode, moderate F33.1 [place] [address] [place] [address] Dec, Major depressive disorder, recurrent episode, moderate F33.1 [place] [id number] [place] [address] Dec, [place] [address] [place] [id number] [place] [address] Nov, Morbid (severe) obesity due to excess calories E66.01 ; Excessive daytime sleepiness G47.19 ; Pelvic pain R10.2 and Irregular menses N92.6 [place] [address] [id number] [place] [address] Oct, Routine health maintenance Z00.00 ; Family history of diabetes mellitus Z83.3 ; History of thyroid disease Z86.39 ; Body mass index (BMI) of 45.0-49.9 in adult Z68.42 ; Morbid (severe) obesity due to excess calories E66.01 ; Atrial ectopy I49.1 and History of seizures Z87.898 [facility] [address] [place] [address] Nov, Dental examination V72.2 IMMUNIZATIONS No Known Immunizations SOCIAL HISTORY Never Assessed REASON FOR VISIT Deferred lab PLAN OF CARE VITAL SIGNS MEDICATIONS Unknown [...]
--- NOTE | 2018-12-11 15:39 | ED Chest Pain ---
General Chief Complaint: Chest Wall Stated Complaint: CHEST PAIN; NEAR SYNCOPE; FATIGUE Source: patient Exam Limitations: no limitations History of Present Illness Date Seen by Provider: Dec 11, 2018 Time Seen by Provider: 15:30 Initial Comments 28-year-old female presents with 2 weeks of body aches, generalized malaise, rule out left-sided chest wall pain. She also reports about a month ago she had a rash that they think is contact dermatitis also spread to her face. She has some mild shortness of breath. The chest pain gets worse with breathing. Patient is concerned because she had "atrial ectopy" as a child patient also has a history of hypothyroidism but is not taking her thyroid medication. She denies any fever, chills, nausea, vomiting or other systemic complaints at this time. Allergies and Home Medications Allergies Coded Allergies: buspirone (Verified Allergy, Severe, TACHYCARDIA, 01/07/18) oseltamivir (Unverified Allergy, Severe, SEIZURES, 01/07/18) sertraline (Unverified Allergy, Severe, SEIZURES, 01/07/18) latex (Unverified Allergy, Mild, RASH, 01/07/18) nickel (Unverified Allergy, Mild, RASH, 01/07/18) red dye (Unverified Allergy, Mild, HIVES, 01/07/18) Home Medications Gabapentin 300 Mg Capsule, 300 MG PO DAILY, (Reported) Multivitamin 1 Each Tablet, 1 EACH PO DAILY, (Reported) Patient Home Medication List Home Medication List Reviewed: Yes Review of Systems Review of Systems Constitutional: see HPI Respiratory: Denies Shortness of Air Cardiovascular: See HPI Gastrointestinal: No Symptoms Reported Skin: pruritus, rash Past Lbhxeqx-Pbgyhx-Kvhawv Hx Past Med/Social Hx: Reviewed Nursing Past Med/Soc Hx Patient Social History Recent Hopitalizations: No Immunizations Up To Date Date of Influenza Vaccine: Mar 05, 2017 Seasonal Allergies Seasonal Allergies: Yes Past Medical History Surgeries: Yes (CARDIAC CATH; COLONOSCOPY/ EGD) Adenoidectomy, Gallbladder, Tonsillectomy Respiratory: Yes Asthma Cardiac: Yes (ATRIAL ECTOPY) Irregular Heartbeat Neurological: Yes (ONLY RELATED TO MEDICATIONS) Seizure Disorder Reproductive Disorders: No Sexually Transmitted Disease: No HIV/AIDS: No Bladder Infection Gastrointestinal: Yes Gall Bladder Disease Musculoskeletal: No Endocrine: Yes Hypothyroidsim Loss of Vision: Denies Hearing Impairment: Denies Cancer: No Psychosocial: Yes Anxiety, Depression Integumentary: No Blood Disorders: No Adverse Reaction/Blood Tranf: No (N/A) Physical Exam Vital Signs Vital Signs - First Documented 12/11/18 15:15 Temp 97.5 Pulse 92 Resp 20 B/P (MAP) 130/65 (86) Pulse Ox 98 O2 Delivery Room Air Capillary Refill : Height, Weight, BMI Height: 5'8.00" Weight: 278lbs. 0.0oz. 126.626866ci; 42.6 BMI Method:Stated General Appearance: No Apparent Distress, WD/WN HEENT: TMs Normal Respiratory: Lungs Clear, Normal Breath Sounds Cardiovascular: Regular Rate, Rhythm, No Edema, Normal Peripheral Pulses, Other (Left chest wall tender to palpation, reproduces symptoms) Extremity: Normal Capillary Refill, Normal Inspection Skin: Other (Diffuse excoriations from where she has been scratching this patient her legs. Some mild erythema to her bilateral cheeks) Progress/Results/Core Measures Results/Orders Lab Results Laboratory Tests Test 12/11/18 15:25 12/11/18 15:30 Range/Units White Blood Count 7.3 4.3-11.0 10^3/uL Red Blood Count 4.35 4.35-5.85 10^6/uL Hemoglobin 13.1 11.5-16.0 G/DL Hematocrit 39 35-52 % Mean Corpuscular Volume 89 80-99 FL Mean Corpuscular Hemoglobin 30 25-34 PG Mean Corpuscular Hemoglobin Concent 34 32-36 G/DL Red Cell Distribution Width 12.8 10.0-14.5 % Platelet Count 248 130-400 10^3/uL Mean Platelet Volume 9.9 7.4-10.4 FL Neutrophils (%) (Auto) 68 42-75 % Lymphocytes (%) (Auto) 23 12-44 % Monocytes (%) (Auto) 5 0-12 % Eosinophils (%) (Auto) 4 0-10 % Basophils (%) (Auto) 0 0-10 % Neutrophils # (Auto) 5.0 1.8-7.8 X 10^3 Lymphocytes # (Auto) 1.6 1.0-4.0 X 10^3 Monocytes # (Auto) 0.4 0.0-1.0 X 10^3 Eosinophils # (Auto) 0.3 0.0-0.3 10^3/uL Basophils # (Auto) 0.0 0.0-0.1 10^3/uL Sodium Level 139 135-145 MMOL/L Potassium Level 4.1 3.6-5.0 MMOL/L Chloride Level 99 98-107 MMOL/L Carbon Dioxide Level 26 21-32 MMOL/L Anion Gap 14 5-14 MMOL/L Blood Urea Nitrogen 15 7-18 MG/DL Creatinine 0.77 0.60-1.30 MG/DL Estimat Glomerular Filtration Rate > 60 BUN/Creatinine Ratio 19 Glucose Level 107 H 70-105 MG/DL Calcium Level 9.1 8.5-10.1 MG/DL Corrected Calcium 8.9 8.5-10.1 MG/DL Total Bilirubin 0.4 0.1-1.0 MG/DL Aspartate Amino Transf (AST/SGOT) 18 5-34 U/L Alanine Aminotransferase (ALT/SGPT) 13 0-55 U/L Alkaline Phosphatase 86 40-136 U/L Troponin I < 0.30 <0.30 NG/ML Pro-B-Type Natriuretic Peptide 9.6 <75.0 PG/ML Total Protein 7.1 6.4-8.2 GM/DL Albumin 4.2 3.2-4.5 GM/DL Urine Color YELLOW Urine Clarity SLT CLOUDY Urine pH 6.0 5-9 Urine Specific [place] >=1.030 1.016-1.022 Urine Protein NEGATIVE NEGATIVE Urine Glucose (UA) NEGATIVE NEGATIVE Urine Ketones NEGATIVE NEGATIVE Urine Nitrite NEGATIVE NEGATIVE Urine Bilirubin NEGATIVE NEGATIVE Urine Urobilinogen 0.2 NORMAL MG/DL Urine Leukocyte Esterase NEGATIVE NEGATIVE Urine RBC (Auto) NEGATIVE NEGATIVE Urine RBC NONE /HPF Urine WBC 2-5 /HPF Urine Squamous Epithelial Cells 2-5 /HPF Urine Crystals NONE /LPF Urine Bacteria TRACE /HPF Urine Casts NONE /LPF Urine Mucus MODERATE H /LPF Urine Culture Indicated NO Urine Test NEGATIVE NEGATIVE My Orders Orders - REED,IRAIS L DO Ekg Tracing (12/11/18 15:33) Cbc With Automated Diff (12/11/18 15:33) Comprehensive Metabolic Panel (12/11/18 15:33) Hcg,Qualitative Urine (12/11/18 15:33) Troponin I (12/11/18 15:33) Ua Culture If Indicated (12/11/18 15:33) Probnp Fs (12/11/18 15:33) Chest Pa/Lat (2 View) (12/11/18 15:33) Urine Bedside (12/11/18 16:00) Thyroid Analyzer (12/11/18 16:00) Ketorolac Injection (Toradol Injection) (12/11/18 17:01) Vital Signs/I&O 12/11/18 12/11/18 15:15 17:38 Temp 97.5 97.0 Pulse 92 80 Resp 20 18 B/P (MAP) 130/65 (86) 140/63 (88) Pulse Ox 98 98 O2 Delivery Room Air Progress Progress Note : Progress Note Patient's chest wall pain is very consistent with a pleuritic type chest pain. I discussed with her that there is a pretty no acute cardiac process. I also discussed with her that she likely is having a lot of her malaise dry itchy skin and other symptoms as from her not taking her thyroid medication and being hypothyroid. I recommend she restart her medication. She needs a follow-up with her primary care provider to review thyroid studies and further management. Patient is stable and will be discharged home in stable condition. Initial ECG Impression Date: Dec 11, 2018 Initial ECG Impression Time: 15:19 Initial ECG Rhythm: Normal Sinus Initial ECG Intervals: Normal Initial ECG Impression: Normal Comment Normal ekg Diagnostic Imaging Diagonstic Imaging: Xray Plain Films/CT/US/NM/MRI: chest Comments no acute findings Reviewed: Reviewed/Discussed Departure Impression Primary Impression: Pleurisy Additional Impression: Hypothyroidism Qualified Codes: E03.9 - Hypothyroidism, unspecified Disposition: 01 HOME, SELF-CARE Condition: Stable Departure-Patient Inst. Referrals: MARY CARO DO (PCP) Primary Care Physician ANTHONY ENG APRN (Family) Primary Care Physician Patient Instructions: Pleuritic Chest Pain, Hypothyroidism (Underactive Thyroid) Add. Discharge Instructions: Ibuprofen 600 mg 3 times a day as needed for chest wall pain. Please restart your thyroid medication, follow-up with her primary care provider to review thyroid studies and to monitor your thyroid. All discharge instructions reviewed with patient and/or family. Voiced understanding. IRAIS REED DO Dec 11, 2018 15:39
--- OUTSIDE RECORDS SUMMARY | 2018-12-11 15:40 | XMS REPORT | Continuity of Care Document ---
Author Organization Unknown Address Unknown Allergies There is no data. Medications There is no data. Problems There is no data. Procedures There is no data. Results Test Result Range THYROID PEROXIDASE ANTIBODIES - 12/20/17 12:14 THYROID PEROXIDASE ANTIBODIES <1 IU/mL <9 VITAMIN B12 - 12/20/17 12:14 VITAMIN B12 316 pg/mL 200-1100 Encounters ACCT No. Visit Date/Time Discharge Status Pt. Type Provider Facility Loc./Unit Complaint [id number] 12/08/2018 16:00:00 ACT Outpatient [facility] [id number] 12/20/2017 11:40:00 Document Registration
--- NOTE | 2018-12-11 16:15 | Diagnostic Imaging Report ---
INDICATION: Chest pain. Myalgia. COMPARISON: None. FINDINGS: Frontal and lateral views of the chest demonstrate normal heart size and pulmonary vascularity. The lungs are clear. There are no signs of infiltrate, pleural effusions or pneumothoraces. The visualized osseous structures show no acute abnormalities. IMPRESSION: 1. No acute process. No signs of infiltrates, effusions or pneumothoraces. Dictated by: Dictated on workstation # [id number]
[2018-12-11 16:29] LABS: HEMATOCRIT 39 % (35-52); HEMOGLOBIN 13.1 G/DL (11.5-16.0); LYMPHOCYTES % (AUTO) 23 % (12-44); MEAN CORPUSCULAR HEMOGLOBIN 30 PG (25-34); MEAN CORPUSCULAR HGB CONC 34 G/DL (32-36); MEAN CORPUSCULAR VOLUME 89 FL (80-99); MEAN PLATELET VOLUME 9.9 FL (7.4-10.4); MONOCYTES % (AUTO) 5 % (0-12); NEUTROPHILS % (AUTO) 68 % (42-75); PLATELET COUNT 248 10^3/uL (130-400); RED CELL DISTRIBUTION WIDTH 12.8 % (10.0-14.5); WHITE BLOOD COUNT 7.3 10^3/uL (4.3-11.0)
[2018-12-11 16:30] LABS: BASOPHILS % (AUTO) 0 % (0-10); EOSINOPHILS # (AUTO) 0.3 10^3/uL (0.0-0.3); EOSINOPHILS % (AUTO) 4 % (0-10); LYMPHOCYTES # (AUTO) 1.6 X 10^3 (1.0-4.0); MONOCYTES # (AUTO) 0.4 X 10^3 (0.0-1.0)
[2018-12-11 16:34] LABS: BILIRUBIN,URINE NEGATIVE (NEGATIVE); CLARITY,URINE SLT CLOUDY; COLOR,URINE YELLOW; GLUCOSE, URINE (UA) NEGATIVE (NEGATIVE); KETONES,URINE NEGATIVE (NEGATIVE); NITRITE,URINE NEGATIVE (NEGATIVE); PROTEIN,URINE NEGATIVE (NEGATIVE)
[2018-12-11 16:35] LABS: BACTERIA,URINE TRACE /HPF; LEUKOCYTE ESTERASE ,URINE NEGATIVE (NEGATIVE); UROBILINOGEN,URINE 0.2 MG/DL (NORMAL)
[2018-12-11 17:01] LABS: ALANINE AMINOTRANSFERASE 13 U/L (0-55); ALKALINE PHOSPHATASE 86 U/L (40-136); BILIRUBIN,TOTAL 0.4 MG/DL (0.1-1.0); BUN/CREATININE RATIO 19; CALCIUM 9.1 MG/DL (8.5-10.1); CARBON DIOXIDE 26 MMOL/L (21-32); CHLORIDE 99 MMOL/L (98-107); CREATININE SERUM 0.77 MG/DL (0.60-1.30); GFR ESTIMATED > 60; GLUCOSE 107 MG/DL (70-105); POTASSIUM 4.1 MMOL/L (3.6-5.0); SODIUM 139 MMOL/L (135-145)
[2018-12-11] MEDS ORDERED: KETOROLAC 30 MG/ML VIAL IVP STA (17:01)
[2018-12-11 17:02] LABS: ALBUMIN 4.2 GM/DL (3.2-4.5); TOTAL PROTEIN 7.1 GM/DL (6.4-8.2)
[2018-12-11 17:38] VITALS: BP 140/63
== END 2018-12-11 17:43 | disposition home or self-care (01) ==
LOC: EDUNIT# 15:15 → ER FS 15:18
DX: R09.1 Pleurisy (principal); E03.9 Hypothyroidism, unspecified; J45.909 Unspecified asthma, uncomplicated; G40.909 Epilepsy, unspecified, not intractable, without status epilepticus; F41.9 Anxiety disorder, unspecified; F32.9 Major depressive disorder, single episode, unspecified; Z90.89 Acquired absence of other organs; Z91.14 Patient's other noncompliance with medication regimen; Z88.8 Allergy status to other drugs, medicaments and biological substances; Z91.040 Latex allergy status
CPT/HCPCS: 36415; 71046; 80053; 81000; 83880; 84443; 84484; 84703; 85025; 93005; 96374

== ENCOUNTER 2018-12-20 07:37 | Emergency (ER) | payer OTHER, MEDICAID ==
[~2018-12-20] VITALS: Ht 172.7 cm; Wt 124.7 kg
[~2018-12-20 07:37] MED LIST changes: +MULT-974 PO; +MUPI22OI2
--- OUTSIDE RECORDS SUMMARY | 2018-12-20 07:43 | XMS REPORT | Clinical Summary ---
Author Author [facility] Organization [facility] Address Unknown Phone Unavailable Care Team Providers Care Soup Mixer Name Role Phone VjKayla hitchcock UYEN PCP [...] Group MEDICAID MANAGED CARE [employer] xxxxxxxxxxx 2018-P ([place]) [facility] Advance Directives Patient Pulmonary Disease Specialist Explanation Type Date Recorded Health Care Directive
--- OUTSIDE RECORDS SUMMARY | 2018-12-20 07:43 | XMS REPORT | Encounter Summary ---
Author Author [facility] Organization [facility] Address Unknown Phone Unavailable Care Team Providers Care Labor Utilization Superintendent Name Role Phone VjKayla hitchcock UYEN PCP Reason for Visit * Reason Comments Cough Encounter Details Care Team Description Date Type Department Silverio Leong DO [address] [facility] [place], [place] [id number] Upper respiratory tract infection, unspecified type (Primary Dx) 07/31/2018 Emergency [facility] [address] [place] [address] Social History Date Tobacco Use Types Packs/Day [...] through Care Everywhere.* Respiratory Infections, Preventing Common (Indonesian) documented in this encounter Medications at Time [...] DO - 07/31/2018 10:43 PM CDT 07/31/2018 [facility] History Chief Complaint Patient presents with Cough [...] Resp: Temp: SpO2: 100% 100% Kayla Zabala, SUPERVISOR STATEMENT CLERKS [address] [facility] [address] In 1 week Patient given instructions. ED Clinical Impression 1. Upper respiratory tract infection, unspecified type Patient ED Dispo None Silverio Leong DO 07/31/186 * Kristne Monge RN - 07/31/2018 10:17 PM CDT [...]
--- OUTSIDE RECORDS SUMMARY | 2018-12-20 07:43 | XMS REPORT | Encounter Summary ---
Author Author [facility] Organization [facility] Address Unknown Phone Unavailable Care Team Providers Care Cilnical Scientist Name Role Phone Jessa Zabalazabeth UYEN PCP Reason for Visit * Reason Comments Abdominal Pain Encounter Details Care Team Description Date Type Department Lower abdominal pain (Primary Dx) 08/11/2018 Emergency [facility] [address] [place] [address] Social History Date Tobacco Use Types Packs/Day [...] Care Everywhere.* ABDOMINAL PAIN, UNKNOWN CAUSE, (FEMALE) (GERMAN) documented in this encounter Medications at Time [...] PA-C - 08/11/2018 8:05 PM CDT 08/11/2018 [facility] History Chief Complaint Patient presents with Abdominal Pain Chief complaint: Lower abdominal pain History of present illness: 28-year-old female presents to the ER per private ve hicle with history of lower abdominal pain times 5 days. Patient states she ramonita t to the walk-in clinic at [facility] with similar complaints today aroun [...] Negative Ketones Urine Negative Negative mg/dL Specific [place], UA >1.030 (H) 1.001 - 1.030 Hemoglobin [...] SHARAA L Sex#: Jl # 1990 Lorrie#: [id number] Location: [facility] ED AED-01 Procedure Requested: [id number] XR ABDOMEN MIN 2 VIEWS Reason for [...] Resp: Temp: SpO2: 98% 100% Kayla Zabala, COMMERCIAL ACCOUNT OFFICER [address] [facility] [address] In 3 days As needed Patient [...] P t went to the clinic in [place] today and they had a negative result. [...] Patient: VINICIUS DACOSTA CELSO Sex#:F # 1990 Lorrie#:[id number] Location:[facility] ED AED-01Accession#: [id number] Procedure Requested:[id number] XR ABDOMEN MIN 2 VIEWS Reason for [...] ANURADHA DACOSTA Sex#: F # 1990 Lorrie#: [id number] Location: [facility] ED AED-01 Procedure Requested: [id number] XR ABDOMEN MIN 2 VIEWS Reason for [...] PM CDT) HCG Serum QT <2 mIU/mL [facility] Comment: HOSPITAL LAB HCG Serum QT: Female Reference Range: Premenopausal0 - 4mIU/mL Postmenopausal 0 - 6mIU/mL >24mIU/mL Indeterminate5 - 24 mIU/mL (Consider retesting 48 hours later) Specimen Blood Performing Organization Address City/[facility]/Zipcode Phone Number [facility] [address] [address] LAB * Comprehensive Metabolic Panel (08/11/2018 7:59 PM CDT) Sodium 138 133 - 147 MEQ/L [facility] LAB Potassium 4.4 3.5 - 5.3 MEQ/L [facility] LAB Chloride 100 96 - 112 MEQ/L [facility] LAB Carbon Dioxide 30 20 - 32 MEQ/L [facility] LAB Anion Gap 7 5 - 17 [facility] LAB Calcium 9.6 8.4 - 10.5 mg/dL [facility] LAB Glucose 91 70 - 100 mg/dL [facility] Protein Total 7.3 6.0 - 8.2 g/dL [facility] Serum [facility] Albumin 4.2 3.5 - 5.0 g/dL [facility] LAB Alkaline 76 42 - 140 IU/L [facility] Phosphatase [facility] Alanine 18 0 - 34 IU/L [facility] e Aspartate 22 15 - 46 IU/L [facility] LAB e Bilirubin Total 0.4 0.2 - 1.3 mg/dL [facility] LAB Blood Urea 14 7 - 26 mg/dL [facility] LAB Creatinine 0.8 0.4 - 1.1 mg/dL [facility] LAB eGFR Female AA 104 60 - 200 [facility] mL/min/1.73sq [facility] eGFR Female 87 60 - 200 [facility] Non-AA mL/min/1.73sq [facility] Specimen Blood Performing Organization Address City/[facility] Phone Number [address] [address] LAB * Urinalysis Reflex (08/11/2018 7:45 PM CDT) Pathologist [facility] Appearance, Yellow [facility] Urine [facility] Glucose Urine Negative Negative mg/dL [facility] Bilirubin Urine Negative Negative [facility] Ketones Urine Negative Negative mg/dL [facility] Specific >1.030 (H) 1.001 - 1.030 [facility] Hemoglobin Negative Negative [facility] LAB PH Urine 6.0 5.0 - 8.0 [facility] Protein Urine Negative Negative mg/dL [facility] LAB Urobilinogen Negative Negative EU/dL [facility] LAB Nitrite Urine Negative Negative [facility] LAB Leukocyte Negative Negative [facility] LAB Specimen Clean Voided Urine Performing Organization Address City/[facility] Phone Number [address] [place] [address] LAB * Complete Blood Count and Differential (manual count if needed) (08/11/2018 7:45 PM CDT) [facility] WBC 8.65 4.00 - 11.00 TH/uL [facility] LAB RBC 4.72 4.00 - 5.00 MIL/uL [facility] LAB Hemoglobin 14.1 12.0 - 15.0 g/dL [facility] LAB Hematocrit 41 36 - 45 % [facility] MCV 88 80 - 99 [facility] LAB MCH 30 27 - 34 pg [facility] LAB MCHC 34 32 - 36 % [facility] LAB RDW 13.3 9.0 - 14.5 % [facility] LAB Platelet Count 282 140 - 400 TH/uL [facility] LAB MPV 9.0 (L) 9.4 - 12.3 [facility] LAB % Neutrophils 51 45 - 78 % [facility] LAB %Lymphocytes 39 15 - 47 % [facility] LAB %Monocytes 5 0 - 12 % [facility] LAB %Eosinophils 4 0 - 7 % [facility] LAB %Basophils 0 0 - 2 % [facility] LAB # Granulocytes 4.44 1.70 - 6.80 TH/uL [facility] LAB # Lymphocytes 3.36 (H) 1.00 - 3.30 TH/uL [facility] LAB # Monocytes 0.47 0.20 - 0.90 TH/uL [facility] LAB # Eosinophils 0.36 0.00 - 0.40 TH/uL [facility] LAB # Basophils 0.02 0.00 - 0.10 TH/uL [facility] LAB Specimen Blood Performing Organization Address City/State/Zipcode Phone Number [facility] [address] [place] [address] LAB documented in this encounter Visit Diagnoses [...]
--- OUTSIDE RECORDS SUMMARY | 2018-12-20 07:43 | XMS REPORT | Clinical Summary ---
Author Author [facility] Organization [facility] Address Unknown Phone Unavailable Care Team Providers Care Grinder And Plater Name Role Phone Bernardo العراقي APRN PCP Source Comments Some departments are not documenting in the electronic medical record. If you d o not see the information that you expected, contact Release of Information in [facility] [employer] Information Management department at [phone] for further assistan ce in locating additional records.[facility] Allergies Comments Active Allergy Reactions Severity Noted [...] Phone Address Plan / Dates Group Medicaid [facility] MEDICAID [facility] xxxxxxxxxxx 2010- [facility] Present HEALTH Advance Directives Patient Food Preparation Kitchen Aide Explanation Type Date Recorded Advance Directive/DPOA
--- OUTSIDE RECORDS SUMMARY | 2018-12-20 07:43 | XMS REPORT | Encounter Summary ---
Author Author [facility] Organization [facility] Address Unknown Phone Unavailable Care Team Providers Care Senior Infrastructure Engineer Name Role Phone Vj Kayla UYEN PCP Reason for Visit * Reason Comments Allergic Reaction Encounter Details Care Team Description Date Type Department Allergic contact dermatitis due to plants, except food (Primary Dx) 10/27/2018 [facility] [address] [place] [address] Social History Date Tobacco Use Types Packs/Day [...] sent through Care Everywhere.* POISON SADIQ DERMATITIS (IRISH) documented in this encounter Medications at Time [...] PA-C - 10/27/2018 4:07 PM CDT 10/27/2018 [facility] History Chief Complaint Patient presents with Allergic [...] Temp: 36.7 C (98.1 F) Kayla Zabala, CITY ASSESSOR [address] [facility] [address] In 1 week Patient given instructions. [...]
--- OUTSIDE RECORDS SUMMARY | 2018-12-20 07:44 | XMS REPORT | Encounter Summary ---
Author Author [facility] Organization [facility] Address Unknown Phone Unavailable Care Team Providers Care Melt House Supervisor Name Role Phone Jessa Zabalazabeth UYEN PCP Reason for Visit * Reason Comments Abdominal Pain heart palpations Encounter Details Care Team Description Date Type Department Palpitations (Primary Dx) 07/13/2018 [facility] [address] [place] [address] Social History Date Tobacco Use Types Packs/Day [...] Comments Vital Sign 116/50 07/13/2018 7:28 PM INDUSTRIAL ECOLOGIST Blood Pressure 82 07/13/2018 7:28 PM INDUSTRIAL ECOLOGIST Pulse 36.8 C (98.3 F) 07/13/2018 7:28 PM INDUSTRIAL ECOLOGIST Temperature 20 07/13/2018 7:28 PM INDUSTRIAL ECOLOGIST Respiratory Rate 100% 07/13/2018 7:28 PM INDUSTRIAL ECOLOGIST Oxygen Saturation - - Inhaled Oxygen Concentration 127 kg (280 lb) 07/13/2018 6:48 PM INDUSTRIAL ECOLOGIST Weight 172.7 cm (5' 8") 07/13/2018 6:48 PM INDUSTRIAL ECOLOGIST Height 42.57 07/13/2018 6:48 PM INDUSTRIAL ECOLOGIST Body Mass Index documented in this encounter Discharge Instructions * Attachments The following attachments cannot be sent through Care Everywhere.* PALPITATIONS (YAKUT) documented in this encounter Medications at Time of Discharge Start Date End Date Medication Sig Dispensed Refills gabapentin (NEURONTIN) Take 100 mg 0 100 MG capsule by mouth daily. documented as of this encounter ED Notes * Millie Leblanc RN - 07/13/2018 7:34 PM INDUSTRIAL ECOLOGIST Discharged to home. Plan to follow up with primary. No distress noted on dischar ge STRIAL ECOLOGIST * Marilee Bean PA-C - 07/13/2018 7:02 PM INDUSTRIAL ECOLOGIST 07/13/2018 [facility] History Chief Complaint Patient presents [...] ED Disposition Discharge Marilee Bean PA-C 07/13/182245 STRIAL ECOLOGIST * Millie Leblanc RN - 07/13/2018 6:52 PM INDUSTRIAL ECOLOGIST Pt was seen in ed last week with dx of uti, given abtx but cont to have same sym ptoms of frequency, abd pain. Does have hx of heart problems and has been havin g heart palpations that is relieved with out tx. STRIAL ECOLOGIST documented in this encounter Plan of Treatment Not on filedocumented as of this encounter Procedures Comments Procedure Name Priority Date/Time Associated Diagnosis ECG STAT 07/13/2018 7:11 PM INDUSTRIAL ECOLOGIST CBC AND DIFF (MANUAL DIFF STAT 07/13/2018 IF NECESSARY) 7:10 PM INDUSTRIAL ECOLOGIST BASIC METABOLIC PANEL STAT 07/13/2018 7:10 PM INDUSTRIAL ECOLOGIST URINE TEST STAT 07/13/2018 6:40 PM INDUSTRIAL ECOLOGIST URINALYSIS REFLEX STAT 07/13/2018 6:40 PM INDUSTRIAL ECOLOGIST documented in this encounter Results * Electrocardiogram (ECG) (07/13/2018 7:11 PM INDUSTRIAL ECOLOGIST) QRSd 88 [facility] QT 348 [facility] QTC 409 [facility] ECGHR 83 [facility] ECGPR 168 [facility] Specimen Narrative Performed At [facility] Test Date:2018-07-13 Pat Name: ANURADHA DACOSTA Department: [facility] ED Room: Gender: Female Gas Welding Machine Operator: [id number] :[id number] Requested By: MARILEE BEAN Order Number: [id number] MD: Matias Gonzalez Measurements IntervalsAxis Rate: 83 P:52 NM: 168QRS:46 QRSD: 88 T:23 QT: 348 QTc:409 Interpretive Statements SINUS RHYTHM NON DIAGNOSTIC INFERIOR Q WAVES, PROBABLY NORMAL VARIANT Electronically Signed On 07-14-2018 13:08:39 INDUSTRIAL ECOLOGIST by Matias Gonzalez Procedure Note Interface, External Ris In - 07/14/2018 1:09 PM INDUSTRIAL ECOLOGIST [facility] Test Date: 2018-07-13 Pat Name: ANURADHA DACOSTA Department: [facility] ED Room: Gender: Female Gas Welding Machine Operator: EP : [id number] Requested By: MARILEE BEAN Order Number: [id number] Reading MD: Matias Gonzalez Measurements Intervals [place] Rate: 83 P: 52 NM: 168 QRS: 46 QRSD: 88 T: 23 QT: 348 QTc: 409 Interpretive Statements SINUS RHYTHM NON DIAGNOSTIC INFERIOR Q WAVES, PROBABLY NORMAL VARIANT Electronically Signed On 07-14-2018 13:08:39 INDUSTRIAL ECOLOGIST by Matias Gonzalez Performing Organization Address City/State/Zipcode Phone Number [facility] * Basic Metabolic Panel (07/13/2018 7:10 PM INDUSTRIAL ECOLOGIST) Sodium 137 133 - 147 MEQ/L [facility] Potassium 4.2 3.5 - 5.3 MEQ/L [facility] Chloride 101 96 - 112 MEQ/L [facility] Carbon Dioxide 29 20 - 32 MEQ/L [facility] Anion Gap 7 5 - 17 [facility] Calcium 9.5 8.4 - 10.5 mg/dL [facility] Glucose 93 70 - 100 mg/dL [facility] Blood Urea 17 7 - 26 mg/dL [facility] Creatinine 0.8 0.4 - 1.1 mg/dL [facility] eGFR Female AA 104 60 - 200 [facility] Comment: HOSPITAL LAB Chronic Kidney Disease less than 60 mL/min/1.73 sq.m Kidney failure less than 15 mL/min/1.73 sq.m eGFR Female 87 60 - 200 [facility] Non-AA Comment: HOSPITAL LAB Chronic Kidney Disease less than 60 mL/min/1.73 sq.m Kidney failure less than 15 mL/min/1.73 sq.m Specimen Blood Performing Organization Address City/[facility] Phone Number [facility] [address] [address] LAB * CBC and Diff (manual diff if necessary) (07/13/2018 7:10 PM INDUSTRIAL ECOLOGIST) WBC 8.46 4.00 - 11.00 TH/uL [facility] RBC 4.66 4.00 - 5.00 MIL/uL [facility] Hemoglobin 13.9 12.0 - 15.0 g/dL [facility] Hematocrit 40 36 - 45 % [facility] MCV 86 80 - 99 [facility] MCH 30 27 - 34 pg [facility] MCHC 35 32 - 36 % [facility] RDW 13.2 9.0 - 14.5 % [facility] Platelet Count 253 140 - 400 TH/uL [facility] MPV 9.5 9.4 - 12.3 [facility] % Neutrophils 69 45 - 78 % [facility] %Lymphocytes 24 15 - 47 % [facility] %Monocytes 5 0 - 12 % [facility] %Eosinophils 3 0 - 7 % [facility] %Basophils 0 0 - 2 % [facility] # Granulocytes 5.80 1.70 - 6.80 TH/uL [facility] # Lymphocytes 2.05 1.00 - 3.30 TH/uL [facility] # Monocytes 0.38 0.20 - 0.90 TH/uL [facility] # Eosinophils 0.21 0.00 - 0.40 TH/uL [facility] # Basophils 0.02 0.00 - 0.10 TH/uL [facility] Specimen Blood Performing Organization Address City/[facility] Phone Number [facility] [address] [phone] LAB * Urinalysis Reflex (07/13/2018 6:40 PM INDUSTRIAL ECOLOGIST) Appearance, Yellow [facility] Urine [facility] Glucose Urine Negative Negative mg/dL [facility] Bilirubin Urine Negative Negative [facility] Ketones Urine Negative Negative mg/dL [facility] Specific >1.030 (H) 1.001 - 1.030 [facility] Hemoglobin Negative Negative [facility] PH Urine 5.5 5.0 - 8.0 [facility] Protein Urine Negative Negative mg/dL [facility] Urobilinogen Negative Negative EU/dL [facility] Nitrite Urine Negative Negative [facility] Leukocyte Negative Negative [facility] Specimen Clean Voided Urine Performing Organization Address City/[facility]/Zipcode Phone Number [facility] [address] [place] [address] LAB * Urine Test (07/13/2018 6:40 PM INDUSTRIAL ECOLOGIST) UCG Urine Negative Negative [facility] Specimen Urine Performing Organization Address City/[facility] Phone Number [facility] [address] [place] [address] LAB documented in this encounter Visit Diagnoses Diagnosis Palpitations - Primary documented in this encounter
--- OUTSIDE RECORDS SUMMARY | 2018-12-20 07:44 | XMS REPORT | Encounter Summary ---
Author Author [facility] Organization [facility] Address Unknown Phone Unavailable Care Team Providers Care Campus Recruiter Name Role Phone VjKayla hitchcock UYEN PCP Reason for Visit * Reason Comments Fever Chills Encounter Details Care Team Description Date Type Department Upper respiratory tract infection, unspecified type (Primary Dx) 05/24/2018 [facility] [address] [place] [address] Social History Date Tobacco Use Types Packs/Day Years Used Never Assessed Sex Assigned at Date Recorded Not on file Industry Job Start Date Occupation Not on file Not on file Not on file Travel End Travel History Travel Start No recent travel history available. documented as of this encounter Last Filed Vital Signs Reading Time Taken Comments Vital Sign 116/62 05/24/2018 1:15 PM TOP WADDY Blood Pressure 88 05/24/2018 1:15 PM TOP WADDY Pulse 36.7 C (98.1 F) 05/24/2018 1:15 PM TOP WADDY Temperature 18 05/24/2018 1:15 PM TOP WADDY Respiratory Rate - - Oxygen Saturation - - Inhaled Oxygen Concentration 122.5 kg (270 lb) 05/24/2018 1:15 PM TOP WADDY Weight 172.7 cm (5' 8") 05/24/2018 1:15 PM TOP WADDY Height 41.05 05/24/2018 1:15 PM TOP WADDY Body Mass Index documented in this encounter Discharge Instructions * Attachments The following attachments cannot be sent through Care Everywhere.* URI, VIRAL, NO ABX (ADULT) (MACEDONIAN) documented in this encounter Medications at Time of Discharge Start Date End Date Medication Sig Dispensed Refills gabapentin (NEURONTIN) Take 100 mg 0 100 MG capsule by mouth daily. documented as of this encounter ED Notes * Tristan Robert PA-C - 05/24/2018 2:16 PM TOP WADDY 05/24/2018 [facility] History Chief Complaint Patient presents with Fever Chills 28-year-old female presents with fever and chills over the past 2 days. States she had nausea/vomiting/diarrhea about a week ago, was seen at [facility] and diagnosed with a virus [...] Resp: 18 Temp: 36.7 C (98.1 F) [address] [address] As needed Patient given instructions. ED Clinical Impression 1. Upper respiratory tract infection, unspecified type Patient ED Dispo ED Disposition Discharge Tristan Robert PA-C 05/24/18 1419 WADDY * Syeda Pete RN - 05/24/2018 1:21 PM TOP WADDY 28 y/o female c/o fever et chills. Had a "GI bug" last week and was treated in a clinic at [place]. Pt reports it was a virus and she is currently not expe riencing any N/V/D WADDY documented in this encounter Plan of Treatment Not on filedocumented as of this encounter Procedures Comments Procedure Name Priority Date/Time Associated Diagnosis INFLUENZA AB ANTIGEN STAT 05/24/2018 1:45 PM TOP WADDY documented in this encounter Results * Influenza AB Antigen (05/24/2018 1:45 PM TOP WADDY) Influenza A Negative Negative [facility] Antigen Comment: HOSPITAL LAB A negative rapid influenza antigen result does not exclude influenza infection. If this patient is being hospitalized, influenza PCR should be ordered. Influenza B Negative Negative [facility] Antigen Comment: HOSPITAL LAB A negative rapid influenza antigen result does not exclude influenza infection. If this patient is being hospitalized, influenza PCR should be ordered. Specimen Nasopharynx, Performing Organization Address City/State/Zipcode Phone Number [facility] [address] [place] [address] LAB documented in this encounter Visit Diagnoses Diagnosis Upper respiratory tract infection, unspecified type - Primary documented in this encounter
--- OUTSIDE RECORDS SUMMARY | 2018-12-20 07:44 | XMS REPORT | Encounter Summary ---
Author Author [facility] Organization [facility] Address Unknown Phone Unavailable Care Team Providers Care Family And Marriage Counsellor Name Role Phone Vj Kayla UYEN PCP Reason for Visit * Reason Comments Urinary Urgency x 3 days Encounter Details Care Team Description Date Type Department Tristan Robert PA-C [address] [address] Acute UTI (Primary Dx) 07/05/2018 Emergency [facility] [address] [place] [address] Social History Date Tobacco Use [...] Comments Vital Sign 121/76 07/05/2018 10:19 AM MEDICAL OFFICE MANAGER Blood Pressure 86 07/05/2018 10:19 AM MEDICAL OFFICE MANAGER Pulse 36.6 C (97.9 F) 07/05/2018 10:19 AM MEDICAL OFFICE MANAGER Temperature 16 07/05/2018 10:19 AM MEDICAL OFFICE MANAGER Respiratory Rate 100% 07/05/2018 10:19 AM MEDICAL OFFICE MANAGER Oxygen Saturation - - Inhaled Oxygen Concentration 127 kg (280 lb) 07/05/2018 9:41 AM MEDICAL OFFICE MANAGER Weight 172.7 cm (5' 8") 07/05/2018 9:41 AM MEDICAL OFFICE MANAGER Height 42.57 07/05/2018 9:41 AM MEDICAL OFFICE MANAGER Body Mass Index documented in this encounter Discharge Instructions * Attachments The following attachments cannot be sent through Care Everywhere.* Urinary Tract Infections in Women (Botswanan) documented in this encounter Medications at Time [...] of this encounter ED Notes * Sophia Alxe RN - 07/05/2018 9:42 AM MEDICAL OFFICE MANAGER Pt ambulatory to triage room with chief complaint of pain and burning on urinati on. This has been going on for about 3 days. In addition, pt states that she i s having urinary frequency and urgency. CAL OFFICE MANAGER * Tristan Robert PA-C - 07/05/2018 9:40 AM MEDICAL OFFICE MANAGER 07/05/2018 [facility] History Chief Complaint Patient presents with Urinary [...] Negative Ketones Urine Negative Negative mg/dL Specific [place], UA <1.030 1.001 - 1.030 Hemoglobin Urine [...] (97.9 F) SpO2: 98% 100% Kayla Vj, RECYCLING OPERATOR [address] [facility] [address] As needed Patient given instructions. ED Clinical Impression 1. Acute UTI Patient ED Dispo ED Disposition Discharge Tristan Robert PA-C 07/05/18 1028 CAL OFFICE MANAGER * Sophia Alex RN - 07/05/2018 9:22 AM MEDICAL OFFICE MANAGER Pt urinated 200 ml of urine. Sample collected and taken to lab. CAL OFFICE MANAGER documented in this encounter Plan of Treatment Not on filedocumented as of this encounter Procedures Comments Procedure Name Priority Date/Time Associated Diagnosis URINALYSIS MICROSCOPIC STAT 07/05/2018 ONLY 9:30 AM MEDICAL OFFICE MANAGER URINE TEST STAT 07/05/2018 9:30 AM MEDICAL OFFICE MANAGER URINALYSIS REFLEX STAT 07/05/2018 9:30 AM MEDICAL OFFICE MANAGER CULTURE, URINE STAT 07/05/2018 9:30 AM MEDICAL OFFICE MANAGER documented in this encounter Results * Urine Test (07/05/2018 9:30 AM MEDICAL OFFICE MANAGER) UCG Urine Negative Negative [facility] Specimen Urine Performing Organization Address City/State/Zipcode Phone Number [facility] [address] [address] LAB * Culture, Urine (07/05/2018 9:30 AM MEDICAL OFFICE MANAGER) Pathologist [facility] Culture Result Three or more bacterial [facility] species isolated from urine [facility]ION[facility] indicates colonization or LABORATORIES fecal contamination. Submission of a repeat specimen is suggested. Specimen Clean Voided Urine Performing Organization Address City/State/Zipcode Phone Number [facility] [address] [place] [address] LABORATORIES * Urinalysis Microscopic Only (07/05/2018 9:30 AM MEDICAL OFFICE MANAGER) Microscopic RBC >40 (A) 0 - 5 /hpf [facility] Microscopic WBC 6 - 10 (A) 0 - 5 /hpf [facility] LAB Epithelial Small (A) Absent [facility] Hyaline Cast Absent Absent [facility] Bacteria Small (A) Absent [facility] Specimen Clean Voided Urine Performing Organization Address City/[facility] Phone Number [facility] [address] [place] [address] LAB * Urinalysis Reflex (07/05/2018 9:30 AM MEDICAL OFFICE MANAGER) Appearance, Brown [facility] Glucose Urine Negative Negative mg/dL [facility] Bilirubin Urine Negative Negative [facility] Ketones Urine Negative Negative mg/dL [facility] Specific <1.030 1.001 - 1.030 [facility] [place], [facility] Hemoglobin Large (A) Negative [facility] LAB PH Urine 6.0 5.0 - 8.0 [facility] Protein Urine >300 (A) Negative mg/dL [facility] LAB Urobilinogen Negative Negative EU/dL [facility] LAB Nitrite Urine Positive (A)Comment: Culture Negative [facility] LAB Leukocyte Negative Negative [facility] LAB Specimen Clean Voided Urine Performing Organization Address City/[facility]otn Phone Number [facility] [address] [phone] LAB documented in this encounter Visit Diagnoses Diagnosis Acute UTI - Primary Urinary tract infection, site not specified documented in this encounter
--- OUTSIDE RECORDS SUMMARY | 2018-12-20 07:44 | XMS REPORT | Encounter Summary ---
Author Author [facility] Organization [facility] Address Unknown Phone Unavailable Care Team Providers Care Fitness Center Attendant Name Role Phone VjKayla hicthcock UYEN PCP Encounter Details Care Team Description Date Type Department Silverio Leong DO [address] [place] [address] [phone] 07/05/2018 [facility] Encounter [address] [place] [address] Social History Date Tobacco Use Types Packs/Day [...]
--- OUTSIDE RECORDS SUMMARY | 2018-12-20 07:49 | XMS REPORT | Continuity of Care Document ---
Author Organization Unknown Address Unknown Phone Unavailable Allergies There is no data. Medications There is no data. Problems There is no data. Procedures There is no data. Results Test Result Range THYROID PEROXIDASE ANTIBODIES - 12/20/17 12:14 THYROID PEROXIDASE ANTIBODIES <1 IU/mL <9 VITAMIN B12 - 12/20/17 12:14 VITAMIN B12 316 pg/mL 200-1100 Encounters ACCT No. Visit Date/Time Discharge Status Pt. Type Provider Facility Loc./Unit Complaint [id number] 12/16/2018 14:20:00 12/16/2018 23:59:59 CLS Outpatient [facility] [address] [id number] 12/20/2017 11:40:00 Document Registration
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
[2018-12-20 08:52] VITALS: BP 108/66
== END 2018-12-20 08:51 | disposition home or self-care (01) ==
LOC: EDUNIT# 07:37 → ER FS 07:39
DX: R55 Syncope and collapse (principal); J45.909 Unspecified asthma, uncomplicated; G40.909 Epilepsy, unspecified, not intractable, without status epilepticus; E03.9 Hypothyroidism, unspecified; F32.9 Major depressive disorder, single episode, unspecified; F41.9 Anxiety disorder, unspecified; Z88.8 Allergy status to other drugs, medicaments and biological substances; Z91.040 Latex allergy status; Z90.89 Acquired absence of other organs
CPT/HCPCS: 93005

== ENCOUNTER 2019-01-13 21:22 | Emergency (ER) | payer MEDICAID ==
[~2019-01-13] VITALS: Ht 172.7 cm; Wt 124.7 kg
[2019-01-13 22:53] LABS: HCG,QUALITATIVE URINE NEGATIVE (NEGATIVE)
[2019-01-13 22:57] LABS: CLARITY,URINE SLT CLOUDY; COLOR,URINE YELLOW
[2019-01-13 22:58] LABS: BACTERIA,URINE TRACE /HPF; BILIRUBIN,URINE NEGATIVE (NEGATIVE); GLUCOSE, URINE (UA) NEGATIVE (NEGATIVE); KETONES,URINE TRACE (NEGATIVE); LEUKOCYTE ESTERASE ,URINE 1+ (NEGATIVE); NITRITE,URINE NEGATIVE (NEGATIVE); PROTEIN,URINE NEGATIVE (NEGATIVE); RBC,URINE RARE /HPF; SQUAMOUS EPITHELIAL CELL,UR 25-50 /HPF; UROBILINOGEN,URINE 0.2 MG/DL (NORMAL); WBC,URINE 25-50 /HPF
[2019-01-13 23:01] LABS: AMPHETAMINE SCREEN, URINE NEGATIVE (NEGATIVE); BARBITURATE SCREEN URINE NEGATIVE (NEGATIVE); BENZODIAZEPINES SCREEN URINE NEGATIVE (NEGATIVE); CANNABINOID SCREEN, URINE NEGATIVE (NEGATIVE); COCAINE SCREEN URINE NEGATIVE (NEGATIVE); METHADONE STAT NEGATIVE (NEGATIVE); METHAMPHETAMINE SCREEN URINE S NEGATIVE (NEGATIVE); OPIATE SCREEN URINE NEGATIVE (NEGATIVE); OXYCODONE STAT NEGATIVE (NEGATIVE); PROPOXYPHENE STAT NEGATIVE (NEGATIVE); TRICYCLIC ANTIDEPRESSANTS SCRE NEGATIVE (NEGATIVE)
[2019-01-13] MEDS ORDERED: cefTRIAXone 1,000 MG/2.86 ml vial (IM ONLY) IM STA (23:22)
[2019-01-13] MEDS ORDERED: CEPH500T PO (23:26)
[2019-01-13] MEDS ORDERED: ONDA4TAB11 PO (23:26)
--- NOTE | 2019-01-13 23:27 | ED General ---
General Chief Complaint: Neurological Problems Stated Complaint: POSS SEIZURE Nursing Triage Note: PT ARRIVES VIA EMS COT, VERBALIZES SHE WAS IN HER RESTROOM AND BEGAN TO FEEL VERY STRANGE, REPORTS AN EXTENSIVE ANXIETY HX AMD HAD LIFE STRESSORS AFFECTING HER HOUSEHOLD THIS EVENING. VERBALIZED HYPERVENTILATION AND TUNNEL VISION. STATES SHE FEELS LIKE SHE HAD A SEIZURE, NO ONSCENE WITNESSES COULD COLLABORATE THIS EVENT. Nursing Sepsis Screen: No Definite Risk Source of Information: Patient, EMS History of Present Illness Date Seen by Provider: Jan 13, 2019 Time Seen by Provider: 21:26 Initial Comments 28-year-old female presenting by EMS after having several days of not feeling well. She states that she was having some vomiting and diarrhea. She has been very anxious and stressed recently. Tonight when she got up she was feeling more stressed and had gone into the bathroom. She was hyperventilating and felt like she might start to have a seizure. She said that she does feel like she was getting some tunnel vision. She said that usually she would just tried to calm herself down and manage this at home but she was concerned that she might have that happen again and had not been feeling well for a few days so when EMS was there she had them bring her to the ER to be checked out. She denies any vaginal bleeding or discharge currently. She has had no fever but has had some chills. She denies any tick bites or rashes recently Allergies and Home Medications Allergies Coded Allergies: buspirone (Verified Allergy, Severe, TACHYCARDIA, 01/07/18) oseltamivir (Unverified Allergy, Severe, SEIZURES, 01/07/18) sertraline (Unverified Allergy, Severe, SEIZURES, 01/07/18) latex (Unverified Allergy, Mild, RASH, 01/07/18) nickel (Unverified Allergy, Mild, RASH, 01/07/18) red dye (Unverified Allergy, Mild, HIVES, 01/07/18) Home Medications Cephalexin 500 Mg Tablet, 500 MG PO TID Prescribed by: TONIO LOYD on 01/13/19 3005 Gabapentin 300 Mg Capsule, 300 MG PO DAILY, (Reported) Multivitamin 1 Each Tablet, 1 EACH PO DAILY, (Reported) Ondansetron 4 Mg Tab.rapdis, 4 MG PO Q6H PRN for NAUSEA/VOMITING Prescribed by: OTNIO LOYD on 01/13/19 2326 Patient Home Medication List Home Medication List Reviewed: Yes Review of Systems Review of Systems Constitutional: chills; No dizziness, No fever; malaise, weakness (generalized) EENTM: other (light makes her head hurt.); No ear pain, No blurred vision, No double vision, No mouth pain Respiratory: No cough, No short of breath Cardiovascular: No chest pain, No palpitations Gastrointestinal: No abdominal pain; diarrhea, nausea, vomiting Genitourinary: No dysuria; frequency Musculoskeletal: joint pain, muscle pain (generalized body aches) Skin: No rash Psychiatric/Neurological: Anxiety, Headache Hematologic/Lymphatic: No Symptoms Reported Immunological/Allergic: no symptoms reported Past Dhzhrgn-Bdflez-Rkkufq Hx Past Med/Social Hx: Reviewed Nursing Past Med/Soc Hx Patient Social History Alcohol Use: Denies Use Number of Drinks Today: Alcohol Beverage of Choice: Wine Recreational Drug Use: No Smoking Status: Never a Smoker 2nd Hand Smoke Exposure: No Recent Foreign Travel: No Contact w/Someone Who Travel: No Recent Infectious Disease Expo: No Recent Hopitalizations: No Immunizations Up To Date Tetanus Booster (TDap): Less than 5yrs PED Vaccines UTD: Yes Date of Influenza Vaccine: Mar 05, 2017 Seasonal Allergies Seasonal Allergies: Yes Past Medical History Surgeries: Yes (CARDIAC CATH AGE 16; COLONOSCOPY/ EGD) Adenoidectomy, Gallbladder, Tonsillectomy Respiratory: Yes Asthma Cardiac: Yes (ATRIAL ECTOPY) Irregular Heartbeat Neurological: Yes (ONLY RELATED TO MEDICATIONS) Seizure Disorder : No Last Menstrual Period: Jan 11, 2019 Reproductive Disorders: No Sexually Transmitted Disease: No HIV/AIDS: No Genitourinary: Yes Bladder Infection Gastrointestinal: Yes Gall Bladder Disease Musculoskeletal: No Endocrine: Yes Hypothyroidsim Loss of Vision: Denies Hearing Impairment: Denies Cancer: No Psychosocial: Yes Anxiety, Depression Integumentary: No Blood Disorders: No Adverse Reaction/Blood Tranf: No (N/A) Physical Exam Vital Signs Vital Signs - First Documented 01/13/19 21:22 Temp 96.4 Pulse 85 Resp 20 B/P (MAP) 120/68 (85) Pulse Ox 99 O2 Delivery Room Air Capillary Refill : Less Than 3 Seconds Height, Weight, BMI Height: 5'8.00" Weight: 275lbs. 0.0oz. 124.430515si; 42.6 BMI Method:Stated General Appearance: WD/WN, Mild Distress, Obese Eyes: Bilateral Eye PERRL, Bilateral Eye EOMI HEENT: PERRL/EOMI, Normal ENT Inspection, Pharynx Normal Neck: Full Range of Motion, Normal Inspection, Non Tender, Supple Respiratory: Chest Non Tender, Lungs Clear, Normal Breath Sounds, No Accessory Muscle Use, No Respiratory Distress Cardiovascular: Regular Rate, Rhythm, Normal Peripheral Pulses Gastrointestinal: Normal Bowel Sounds, No Pulsatile Mass, Non Tender, Soft Extremity: Normal Capillary Refill, Normal Inspection, Normal Range of Motion, Non Tender, No Calf Tenderness, No Pedal Edema Neurologic/Psychiatric: Alert, Oriented x3, No Motor/Sensory Deficits, Normal 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, 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 Norm as Tested Skin: Normal Color, Warm/Dry Progress/Results/Core Measures Suspected Sepsis Recent Fever Within 48 Hours: No Infection Criteria Present: None New/Unexplained Altered Menta: Yes Sepsis Screen: No Definite Risk SIRS Temperature:96.4 Pulse: 85 Respiratory Rate: 20 Blood Pressure 120 /68 Mean: 85 Results/Orders Lab Results Laboratory Tests Test 01/13/19 22:42 Range/Units Urine Color YELLOW Urine Clarity SLT CLOUDY Urine pH 6.0 5-9 Urine Specific [place] >=1.030 1.016-1.022 Urine Protein NEGATIVE NEGATIVE Urine Glucose (UA) NEGATIVE NEGATIVE Urine Ketones TRACE H NEGATIVE Urine Nitrite NEGATIVE NEGATIVE Urine Bilirubin NEGATIVE NEGATIVE Urine Urobilinogen 0.2 NORMAL MG/DL Urine Leukocyte Esterase 1+ H NEGATIVE Urine RBC (Auto) NEGATIVE NEGATIVE Urine RBC RARE /HPF Urine WBC 25-50 H /HPF Urine Squamous Epithelial Cells 25-50 H /HPF Urine Crystals NONE /LPF Urine Bacteria TRACE /HPF Urine Casts NONE /LPF Urine Mucus SMALL H /LPF Urine Culture Indicated YES Urine Test NEGATIVE NEGATIVE Urine Opiates Screen NEGATIVE NEGATIVE Urine Oxycodone Screen NEGATIVE NEGATIVE Urine Methadone Screen NEGATIVE NEGATIVE Urine Propoxyphene Screen NEGATIVE NEGATIVE Urine Barbiturates Screen NEGATIVE NEGATIVE Ur Tricyclic Antidepressants Screen NEGATIVE NEGATIVE Urine Phencyclidine Screen NEGATIVE NEGATIVE Urine Amphetamines Screen NEGATIVE NEGATIVE Urine Methamphetamines Screen NEGATIVE NEGATIVE Urine Benzodiazepines Screen NEGATIVE NEGATIVE Urine Cocaine Screen NEGATIVE NEGATIVE Urine Cannabinoids Screen NEGATIVE NEGATIVE My Orders Orders - TONIO LOYD MD Ua Culture If Indicated (01/13/19 21:39) Hcg,Qualitative Urine (01/13/19 21:39) Drug Screen Stat (Urine) (01/13/19 21:39) Urine Culture (01/13/19 22:42) Ceftriaxone For Im Use (Rocephin For Im (01/13/19 23:22) Lidocaine 1% Inj 20 Ml (Xylocaine 1% Inj (01/13/19 23:30) Rx-Ondansetron Po (Rx-Zofran Po) (01/13/19 23:30) Medications Given in ED Current Medications Medications Dose Ordered Sig/Eliza Route Start Time Stop Time Status Last Admin Dose Admin Lidocaine HCl 2.1 ml ONCE ONCE INJ 01/13/19 23:30 01/13/19 23:31 DC 01/13/19 23:50 2.1 ML Ondansetron HCl 4 mg Q6H PRN PO 01/13/19 23:30 01/14/19 00:18 DC 01/13/19 23:55 4 MG Vital Signs/I&O 01/13/19 01/13/19 21:22 23:58 Temp 96.4 96.4 Pulse 85 74 Resp 20 20 B/P (MAP) 120/68 (85) 112/69 (83) Pulse Ox 99 100 O2 Delivery Room Air Capillary Refill : Less Than 3 Seconds Blood Pressure Mean: 85 Progress Note #1: Progress Note Check urine and as well as UDS. Encourage fluids here in ED. Progress Note #2: Progress Note On recheck, her vitals remain normal and she has been up walking to the bathroom a few times without difficulty. She has findings for possible UTI on urine so will start with rocephin IM shot here and follow up with oral antibiotics at home. She states she does not feel she needs a nausea medicine for home. Encouraged to push fluids and rest. Follow up with clinic for continued concerns. Departure Impression Primary Impression: Cystitis without hematuria Additional Impressions: Dehydration Anxiety Nausea, vomiting and diarrhea Disposition: 01 HOME, SELF-CARE Condition: Stable Departure-Patient Inst. Decision time for Depature: 23:24 Referrals: AMRY CARO DO (PCP) Primary Care Physician ANTHONY ENG APRN (Family) Primary Care Physician Patient Instructions: Dehydration, Adult (DC), Nausea and Vomiting, Adult (DC), Acute Cystitis (DC) Add. Discharge Instructions: Stay well hydrated and get plenty of rest Follow up with clinic for continued concerns. Use the nausea medicine to help keep your stomach settled Take the antibiotics until gone All discharge instructions reviewed with patient and/or family. Voiced understanding. Scripts Ondansetron (Ondansetron Odt) 4 Mg Tab.rapdis 4 MG PO Q6H PRN for NAUSEA/VOMITING for 3 Days, #12 TAB 0 Refills Prov: TONIO LOYD MD 01/13/19 Cephalexin (Cephalexin) 500 Mg Tablet 500 MG PO TID for 10 Days, #30 TAB 0 Refills Prov: TONIO LOYD MD 01/13/19 TONIO LOYD MD Jan 13, 2019 23:27
[2019-01-13] MEDS ORDERED: RX-ONDANSETRON 4 MG ODT (ZOFRAN) PPK #4 PO PRN (23:30)
[2019-01-13] MEDS ORDERED: LIDOCAINE 1% INJ 20 ML 20 ML VIAL INJ ONE (23:30)
[2019-01-13 23:58] VITALS: BP 112/69
== END 2019-01-13 23:58 | disposition home or self-care (01) ==
LOC: EDUNIT# 21:22 → ER FS 21:23
DX: N30.90 Cystitis, unspecified without hematuria (principal); E86.0 Dehydration; F41.9 Anxiety disorder, unspecified; R11.2 Nausea with vomiting, unspecified; R19.7 Diarrhea, unspecified; J45.909 Unspecified asthma, uncomplicated; G40.909 Epilepsy, unspecified, not intractable, without status epilepticus; E03.9 Hypothyroidism, unspecified; F32.9 Major depressive disorder, single episode, unspecified; Z88.1 Allergy status to other antibiotic agents; Z88.8 Allergy status to other drugs, medicaments and biological substances; Z91.040 Latex allergy status; Z90.89 Acquired absence of other organs
CPT/HCPCS: 80306; 81000; 84703; 87088; 99284